=== PATIENT | female | born 1945 | race Caucasian/White ===

== ENCOUNTER 2024-05-30 19:36 | Emergency (ER) | payer MEDICARE, SELFPAY ==
[2024-05-30 19:41] VITALS: BP 169/84; PULSE 86; TEMP 36.6; O2SAT 97; BMI 22.1
--- NOTE | 2024-05-30 20:13 | XR_ITS ---
[address] [address] Patient Name: ANAHY MEDINA MRN: [id number] date: 1945 Sex: F Assigned Patient Location: ED.MAIN Current Patient Location: ER Accession/Order Number: [id number] Exam Date: 05/30/2024 21:20 Report Date: 05/30/2024 22:00 At the request of: OSKAR WALTON Procedure: XR chest 2V Exam: Radiographs: XR chest 2V Reason for exam: shortness of breath Comparison: Chest x-ray dated 07/21/2023 XR/XR chest 2V IMPRESSION: Small bilateral pleural effusions. Interstitial opacities in both lungs compatible with edema. Pulmonary venous hypertension. Sternotomy. Cardiac valve prosthesis. Pacemaker. Remainder the chest is unremarkable. Electronically authenticated by: SANTA SAAVEDRA Date: 05/30/2024 22:00
--- NOTE | 2024-05-30 20:13 | CT_ITS ---
The [address] [address] Patient Name: ANAHY MEDINA MRN: [id number] date: 1945 Sex: F Assigned Patient Location: ED.MAIN Current Patient Location: Accession/Order Number: [id number] Exam Date: 05/30/2024 21:20 Report Date: 05/30/2024 21:58 At the request of: OSKAR WALTON Procedure: CT abdomen pelvis w con EXAM: CT scan of the abdomen and pelvis using 100 mL of IV iodinated contrast. Dose reduction technique used: Automated exposure control and/or adjustment of the mA and/or kV according to patient size and/or use of iterative reconstruction technique. REASON FOR EXAM: abdominal pain COMPARISON: None FINDINGS: Bilateral common and iliac artery stenoses. Infrarenal abdominal aortic ectasia measuring up to 2.6 cm. Small bilateral renal cysts. Colonic diverticulosis. Small bilateral pleural effusions. No evidence of appendicitis. No free fluid in the abdomen or pelvis. No free intraperitoneal air. No dilated or thickened loops of small bowel or colon. No hydronephrosis or obstructing renal or ureteral calculi. Liver, pancreas, spleen, bilateral kidneys, and bilateral adrenal glands are otherwise unremarkable. No lymphadenopathy in the abdomen or pelvis. Remainder unremarkable. CT/CT abdomen pelvis w con IMPRESSION: 1. No acute abnormalities in the abdomen or pelvis. 2. Small bilateral pleural effusions. 3. Bilateral common iliac artery stenoses. Electronically authenticated by: SANTA SAAVEDRA Date: 05/30/2024 21:58
[2024-05-30 20:18] LABS: Basophils Absolute Auto 0.1 10^3/uL (0.0-0.1); Basophils Percent Auto 0.7 % (0.2-2.0); Eosinophils Absolute Auto 0.2 10^3/uL (0.0-0.7); Eosinophils Percent Auto 1.6 % (0.9-7.0); Hemoglobin 11.1 g/dL (12.0-16.0); Immature Granulocytes Abs Auto 0.02 10^3/uL (0.00-0.03); Immature Granulocytes Pct Auto 0.2 % (0.0-0.5); Lymphocytes Absolute Auto 2.2 10^3/uL (1.2-3.8); Lymphocytes Percent Auto 23.4 % (20.5-60.0); Mean Corpuscular HGB Conc 31.7 g/dL (29.9-35.2); Mean Corpuscular Hemoglobin 32.7 pg (26.7-34.0); Mean Corpuscular Volume 103.2 fL (81.0-99.0); Mean Platelet Volume 9.2 fL (9.5-13.5); Monocytes Absolute Auto 0.8 10^3/uL (0.3-0.8); Monocytes Percent Auto 8.9 % (1.7-12.0); Neutrophils Percent Auto 65.2 % (43.0-75.0); Platelet Count 285 10^3/uL (150-450); Red Blood Count 3.39 10^6/uL (4.20-5.40); Red Cell Distribution Width 13.4 % (11.0-15.0); White Blood Count 9.2 10^3/uL (4.0-11.0)
[2024-05-30 20:31] LABS: Bilirubin Urine NEGATIVE (NEGATIVE); Blood Urine NEGATIVE (NEGATIVE); Clarity Urine CLEAR (CLEAR); Color Urine LT. YELLOW (YELLOW); Glucose Urine UA NEGATIVE (NEGATIVE); Ketones Urine TRACE mg/dL (NEGATIVE); Leukocyte Esterase Urine TRACE (NEGATIVE); Nitrite Urine NEGATIVE (NEGATIVE); Protein Urine NEGATIVE (NEG/TRACE); Urine Microscopic Indicated YES; Urobilinogen Urine 0.2 EU/dL (0.2-1.0); pH Urine 5.5 (5.0-9.0)
[2024-05-30 20:35] LABS: Alanine Aminotransferase 33 U/L (14-59); Albumin Globulin Ratio 0.9; Albumin Level 3.5 g/dL (3.4-5.0); Alkaline Phosphatase 60 U/L (46-116); Anion Gap 17.4; Aspartate Amino Transferase 22 U/L (15-37); BUN Creatinine Ratio 18.5; Bilirubin Total 0.4 mg/dL (0.2-1.0); Calcium 9.2 mg/dL (8.5-10.1); Carbon Dioxide 22.7 mmol/L (21.0-32.0); Chloride 107 mmol/L (98-107); Estimated GFR (African America 59 (>=60 mL/min/1.73m^2); Estimated GFR (Non-African Ame 49 (>=60 mL/min/1.73m^2); Globulin 3.8 g/dL; Glucose 121 mg/dL (74-106); Potassium 4.1 mmol/L (3.5-5.1); Sodium 143 mmol/L (136-145); Total Protein 7.3 g/dL (6.4-8.2)
[2024-05-30 20:36] LABS: Lactate/Lactic Acid 1.2 mmol/L (0.4-2.0)
[2024-05-30 20:37] LABS: Troponin I High Sensitivity 19.6 pg/mL (4.0-51.3)
[2024-05-30 20:38] LABS: Bacteria Urine NONE SEEN #/HPF (NONE SEEN); Cast Seen? NONE SEEN #/LPF (NONE SEEN); Crystals Seen? None Seen #/HPF (None Seen); Mucus Urine NONE SEEN (NONE SEEN); RBC Urine 0-2 #/HPF (0-2); Squamous Epithelial Cell Urine RARE #/LPF (NONE/RARE); Urine Culture Indicated NO; WBC Urine 0-2 #/HPF (NONE SEEN)
[2024-05-30] MEDS: FUROSEMIDE 40 MG TABLET PO (22:46)
--- NOTE | 2024-05-30 22:49 | ED_ITS ---
HPI HPI - General Adult General Chief complaint: Abdominal Pain Stated complaint: ABDOMINAL PAIN Time Seen by Provider: 05/30/24 19:54 Source: patient Mode of arrival: walk-in Limitations: no limitations History of Present Illness HPI narrative: 78-year-old female to the emergency department with chief complaint of shortness of breath and abdominal pain. Patient reports that for the last month and a half she is having occasional cramping abdominal pain. It occurs 1 or 2 times a day. No nausea vomiting or diarrhea. No blood in the stool or dark tarry stools. She reports normal daily bowel movements. She has not sought care for this. Patient is also accompanied by daughter who reports for the last few weeks had some increased shortness of breath. She has a history of congestive heart failure. She denies any chest pain. She also reports that she notices it when she is lying flat. She has no new edema in her lower extremities. No fever, sweats, chills, cough. Related Data Home Medications ?Medication ?Instructions ?Recorded ?Confirmed atorvastatin 40 mg tablet mg 05/30/24 calcium citrate 400 mg PO DAILY 05/30/24 05/30/24 docusate sodium 100 mg capsule 100 mg PO DAILY PRN constipation 05/30/24 05/30/24 latanoprost 0.005 % eye drops drp ophthalmic (eye) 05/30/24 levothyroxine 50 mcg tablet mcg 05/30/24 losartan 25 mg tablet mg 05/30/24 meclizine 25 mg tablet 25 mg PO PRN 05/30/24 05/30/24 metoprolol succinate 25 mg mg PO 05/30/24 tablet,extended release 24 hr Previous Rx's ?Medication ?Instructions ?Recorded dicyclomine 10 mg capsule 10 mg PO QID PRN abdominal pain 05/30/24 #12 caps furosemide 20 mg tablet (Lasix) 20 mg PO BID 7 days #14 tabs 05/30/24 lactobacillus combination no.4 3 3,000 mmu cells PO DAILY #30 caps 05/30/24 billion cell capsule (Probiotic) Allergies Allergy/AdvReac Type Severity Reaction Status Date / Time No Known Drug Allergies Allergy Verified 05/30/24 19:49 Opioid HPI Opioid Management Most Recent Opioid Data: No Data to Display Review of Systems ROS Status of ROS 10 or more systems reviewed and unremark able except as noted in history and below PFSH PFSH Social History Little interest or pleasure in doing things: not at all Feeling down, depressed, or hopeless: not at all Exam Narrative Exam Narrative: VITALS: I have reviewed the triage vital signs. GENERAL: Well developed, well appearing adult female in no acute distress. NEURO: Alert and oriented. Moves all extremities. Face is symmetric and expressive. EYES: PERRL. No scleral icterus or conjunctival injection. No discharge. HENT: Normocephalic, atraumatic. Hearing is grossly intact. Nares grossly patent and without discharge. Mucous membranes moist. NECK: No JVD. Patient moves neck without restriction. CARDIO: Rhythm regular. Normal rate. No murmur, rub, or gallop. Pulses equal bilaterally in the upper and lower extremity. No lower extremity edema. PULM: Trace crackles at the bases. No conversational dyspnea. No splinting, stridor, or accessory muscle use. GI/: Abdomen is soft and non-tender. Normoactive bowel sounds. EXTREMITIES: Symmetric muscle bulk. No joint swelling. No clubbing, cyanosis, or deformity. SKIN: Warm and dry. Normal turgor. No rash or lesions appreciated. PSYCH: Mood, affect, and interaction is appropriate to the setting. Constitutional Vital Signs, click to edit/add: Last Vital Signs Temp 97.8 F 05/30/24 19:41 Pulse 86 05/30/24 19:41 Resp 18 05/30/24 19:41 BP 169/84 H 05/30/24 19:41 Pulse Ox 97 05/30/24 19:41 O2 Del Method Room Air 05/30/24 19:41 Course Vital Signs Vital signs: Vital Signs Temperature 97.8 F 05/30/24 19:41 Pulse Rate 86 05/30/24 19:41 Respiratory Rate 18 05/30/24 19:41 Blood Pressure 169/84 H 05/30/24 19:41 Pulse Oximetry 97 05/30/24 19:41 Oxygen Delivery Method Room Air 05/30/24 19:41 Temperature 97.8 F 05/30/24 19:41 Pulse Rate 86 05/30/24 19:41 Respiratory Rate 18 05/30/24 19:41 Blood Pressure 169/84 H 05/30/24 19:41 Pulse Oximetry 97 05/30/24 19:41 Oxygen Delivery Method Room Air 05/30/24 19:41 Medical Decision Making [facility] Narrative Medical decision making narrative: 78-year-old female to the emergency department with chief complaint of abdominal pain and daughter volunteers complaint of shortness of breath. Both of been ongoing for several weeks. Vital stable, the patient is afebrile. She is in no respiratory distress. Cardiac workup with CT scan of the abdomen is ordered. Currently asymptomatic as far as the abdominal pain. Shortness of breath only when lying flat per her report currently. She does follow with a thermal cutter helper. She has a history of congestive heart failure. She has an upcoming echo scheduled this month. Lab work reviewed and noted. CBC and chemistry without major abnormality. Her BNP is significantly elevated. Chest x-ray shows some trace pulmonary edema. No evidence of arrhythmia on telemetry monitoring she remains in a normal sinus rhythm. Patient has strong preference for discharge home and follow-up with her outpatient thermal cutter helper which I believe is reasonable. She will call the office tomorrow to discuss her ED visit. Patient is given a dose of Lasix here. She is started on Lasix 20 mg twice daily for home for the next week. Bentyl and probiotic for her chronic abdominal cramping. Incidental findings on CT scan discussed with patient, vascular surgery referral given. Return precautions were discussed. All questions were answered. The patient was discharged home. Medical Records Medical records reviewed: Yes I reviewed the patient's medical records Lab Data Lab results reviewed: Yes I reviewed the patient's lab results Labs: Lab Results 05/30/24 05/30/24 Range/Units 20:10 20:25 WBC 9.2 (4.0-11.0) 10^3/uL RBC 3.39 L (4.20-5.40) 10^6/uL Hgb 11.1 L (12.0-16.0) g/dL Hct 35.0 L (36.0-48.0) % MCV 103.2 H (81.0-99.0) fL MCH 32.7 (26.7-34.0) pg MCHC 31.7 (29.9-35.2) g/dL RDW 13.4 (11.0-15.0) % Plt Count 285 (150-450) 10^3/uL MPV 9.2 L (9.5-13.5) fL Neut % (Auto) 65.2 (43.0-75.0) % Lymph % (Auto) 23.4 (20.5-60.0) % [place] % (Auto) 8.9 (1.7-12.0) % Eos % (Auto) 1.6 (0.9-7.0) % Baso % (Auto) 0.7 (0.2-2.0) % Neut # (Auto) 6.0 (1.4-6.5) 10^3/uL Lymph # (Auto) 2.2 (1.2-3.8) 10^3/uL [place] # (Auto) 0.8 (0.3-0.8) 10^3/uL Eos # (Auto) 0.2 (0.0-0.7) 10^3/uL Baso # (Auto) 0.1 (0.0-0.1) 10^3/uL Abs Immat Gran (auto) 0.02 (0.00-0.03) 10^3/uL Imm/Tot Granulo (auto) 0.2 (0.0-0.5) % Sodium 143 (136-145) mmol/L Potassium 4.1 (3.5-5.1) mmol/L Chloride 107 (98-107) mmol/L Carbon Dioxide 22.7 (21.0-32.0) mmol/L Anion Gap 17.4 BUN 20.0 H (7.0-18.0) mg/dL Creatinine 1.08 H (0.55-1.02) mg/dL Est GFR ( Amer) 59 L (>=60 mL/min/1.73m^2) Est GFR (Non-Af Amer) 49 L (>=60 mL/min/1.73m^2) BUN/Creatinine Ratio 18.5 Glucose 121 H (74-106) mg/dL Lactate 1.2 (0.4-2.0) mmol/L Calcium 9.2 (8.5-10.1) mg/dL Total Bilirubin 0.4 (0.2-1.0) mg/dL AST 22 (15-37) U/L ALT 33 (14-59) U/L Alkaline Phosphatase 60 (46-116) U/L Troponin I High Sens 19.6 (4.0-51.3) pg/mL NT-Pro-B Natriuret Pep 4139.0 H* (<=1800.0) pg/mL Total Protein 7.3 (6.4-8.2) g/dL Albumin 3.5 (3.4-5.0) g/dL Globulin 3.8 g/dL Albumin/Globulin Ratio 0.9 Lipase 52.0 (16.0-77.0) U/L Urine Color Lt. yellow (YELLOW) Urine Clarity Clear (CLEAR) Urine pH 5.5 (5.0-9.0) Ur Specific [place] 1.020 (1.005-1.025) Urine Protein Negative (NEG/TRACE) mg/dL Urine Glucose (UA) Negative (NEGATIVE) mg/dL Urine Ketones Trace A (NEGATIVE) mg/dL Urine Occult Blood Negative (NEGATIVE) Urine Nitrite Negative (NEGATIVE) Urine Bilirubin Negative (NEGATIVE) Urine Urobilinogen 0.2 (0.2-1.0) EU/dL Ur Leukocyte Esterase Trace A (NEGATIVE) Urine RBC 0-2 (0-2) #/HPF Urine WBC 0-2 A (NONE SEEN) #/HPF Ur Squamous Epith Cells Rare (NONE/RARE) #/LPF Urine Crystals None seen (None Seen) #/HPF Urine Bacteria None seen (NONE SEEN) #/HPF Urine Casts None seen (NONE SEEN) #/LPF Urine Mucus None seen (NONE SEEN) Ur Culture Indicated? No Imaging Data Chest x-ray: Radiologist's impression: ITS Impressions Abdomen/Pelvis CT 05/30/24 20:13 IMPRESSION: 1. No acute abnormalities in the abdomen or pelvis. 2. Small bilateral pleural effusions. 3. Bilateral common iliac artery stenoses. Electronically authenticated by: SANTA SAAVEDRA Date: 05/30/2024 21:58 Chest X-Ray 05/30/24 20:13 IMPRESSION: Small bilateral pleural effusions. Interstitial opacities in both lungs compatible with edema. Pulmonary venous hypertension. Sternotomy. Cardiac valve prosthesis. Pacemaker. Remainder the chest is unremarkable. Electronically authenticated by: SANTA SAAVEDRA Date: 05/30/2024 22:00 Discharge Plan Discharge Chief Complaint: Abdominal Pain Clinical Impression: Acute exacerbation of chronic heart failure, Abdominal cramping Patient Disposition: Home, Self-Care Time of Disposition Decision: 22:22 Condition: Good Mode of Transportation: Private Vehicle Prescriptions / Home Meds: New furosemide [Lasix] 20 mg tablet 20 mg PO BID 7 Days Qty: 14 0RF Probiotic 3 billion cell capsule 3,000 mmu cells PO DAILY Qty: 30 0RF Rx Instructions: administer with a meal dicyclomine 10 mg capsule 10 mg PO QID PRN (Reason: abdominal pain) Qty: 12 0RF No Action latanoprost 0.005 % drops OPHTHALMIC (EYE) atorvastatin 40 mg tablet levothyroxine 50 mcg tablet losartan 25 mg tablet metoprolol succinate 25 mg tablet extended release 24 hr PO docusate sodium 100 mg capsule 100 mg PO DAILY PRN (Reason: constipation) calcium citrate 200 mg (950 mg) tablet 400 mg PO DAILY meclizine 25 mg tablet 25 mg PO PRN Print Language: Sami Instructions: Heart Failure (ED), Abdominal Pain (ED) Additional Instructions: Call the office of your primary care doctor to arrange for follow-up within the above-stated timeframe. Your ED visit was focused on your acute issue and does not replace primary care. You should review your labs, imaging, and diagnoses from this ED visit with your primary care physician. There may be non-emergent/ incidental findings that need further evaluation. You should review your vital signs including blood pressure with your PCP. If you were prescribed medications you should discuss possible side-effects and drug interactions with your pharmacist. Call 911 or go to the nearest Emergency Department if you develop any new or worsening symptoms. Seek immediate medical attention if you develop: worsening shortness of breath, difficulty breathing, chest pain, nausea, vomiting, weakness, numbness, tingling, excessive sweating, loss of motion in your arms or legs, or any new or worsening symptoms. Call the office of your thermal cutter helper to arrange for follow-up within the next week. Take Lasix as prescribed. Follow with your primary care doctor about your abdominal pain. Take probiotic as prescribed. Use Bentyl for severe cramping as needed. Incidental finding of iliac artery stenosis. Follow-up with vascular surgery. Referrals: your thermal cutter helper [Other] - 1 week (Call your thermal cutter helper tomorrow morning. Arrange for follow-up care within the next week.) ELVIA DE LEON [Primary Care Provider] - 1 week Janis Donis MD [Physician] - 1 week (follow up to discuss iliac artery stenosis)
[2024-05-30 22:54] VITALS: BP 143/78; PULSE 82; O2SAT 7
== END 2024-05-30 22:54 | disposition home or self-care (01) ==
PROVIDERS: Emergency Provider Student in an Organized Health Care Education/Training Program; PCP Family Medicine
DX: I50.9 Heart failure, unspecified (principal); R06.02 Shortness of breath; R10.9 Unspecified abdominal pain
CPT/HCPCS: 36415; 71046; 74177; 80053; 81001; 83605; 83690; 83880; 84484; 85025; 99285; Q9967

== ENCOUNTER 2024-07-12 14:54 | Emergency (ER) | payer MEDICARE, SELFPAY ==
[2024-07-12] VITALS (11 sets, daily range): BP systolic 115–157; BP diastolic 67–73; PULSE 70–82; TEMP 36.6; O2SAT 91–98; BMI 22.9
--- OUTSIDE RECORDS SUMMARY | 2024-07-12 15:20 | XMS_ITS | CCD ---
Author Organization [facility] CliniSyid Care Team Providers Care Heavy Equipment Sales Associate Name Role Phone PHYSICIAN, DEFAULT Unavailable Unavailable PHYSICIAN, DEFAULT Unavailable Unavailable SELF, REFERRED Unavailable Unavailable Jayro De Leon Primary Care Provider Jayro De Leon Primary Care Provider [phone] HALEY, DR GAN Admitting Unavailable HEMEYER, DR GAN Attending Unavailable HEMEYER, DR GAN Consulting Unavailable HEMEYER, DR GAN Primary Care Unavailable WEST, DR DEMETRICE Ruano Consulting Unavailable VIGESAA, PAVEL Attending Unavailable VIGESAA, PAVEL Consulting Unavailable VIGESAAPAVEL Admitting Unavailable HEMEYER, DR GAN Primary Care Unavailable VIGESAAPAVEL Attending Unavailable VIGESAA, PAVEL Consulting Unavailable VIGESAAPAVEL Admitting Unavailable REQUEST, NONE LISTED Primary Care Unavaila ble Jayro De Leon MD Primary Care Provider Jayro De Leon MD Primary Care Provider MARIEL KENNEY Attending Unavailable PAVEL BROWN Referring Unavailable JAYRO DE LEON Primary Care Unavailable MARIEL KENNEY Admitting Unavailable Jayro De Leon MD Primary Care Provider [phone] Jayro De Leon MD Primary Care Provider Jayro De Leon MD Primary Care Provider [phone] JAYRO DE LEON Attending Unavailable JAYRO DE LEON Attending Unavailable JAYRO DE LEON Attending Unavailable Jayro De Leon MD Unavailable [phone] Jayro De Leon MD Primary Care Provider Jayro De Leon MD Unavailable [phone] Jayro De Leon MD Primary Care Provider Jayro De Leon MD Unavailable Jayro De Leon MD Primary Care Provider [phone] VIGESAA, PAVEL S Referring Unavailable HEMEBAY, EDPETRA J Primary Care Unavailable VIGESAA, PAVEL S Referring Unavailable VIGESAA, PAVEL S Attending Unavailable HEMEBAY, JAYRO J Primary Care Unavailable VIGESAA, PAVEL S Referring Unavailable VIGESAA, PAVEL S Attending Unavailable HEMEBAY, JAYRO J Primary Care Unavailable VIGESAA, PAVEL S Referring Unavailable VIGESAA, PAVEL S Attending Unavailable HEMEYER, JAYRO J Primary Care Unavailable VIGESAA, PAVEL S Referring Unavailable VIGESAA, PAVEL S Attending Unavailable HEMEBAY, JAYRO J Primary Care Unavailable VIGESAA, PAVEL S Referring Unavailable HEMEBAY, JAYRO Ta Primary Care Unavailable VIGESAA, PAVEL S Referring Unavailable HEMEBAY, JAYRO Ta Primary Care Unavailable HEMEYER, JAYRO Ta Primary Care Unavailable VIGESAA, PAVEL S Referring Unavailable HEMEBAY, JAYRO Ta Primary Care Unavailable VIGESAA, PAVEL S Referring Unavailable HEMEBAY, JAYRO Ta Primary Care Unavailable VIGESAA, PAVEL S Referring Unavailable VIGESAA, PAVEL S Referring Unavailable HEMEBAY, JAYRO Ta Primary Care Unavailable VIGESAA, PAVEL S Referring Unavailable HEMEBAY, JAYRO Ta Primary Care Unavailable VIGESAA, PAVEL S Referring Unavailable HALEY, JAYRO Ta Primary Care Unavailable VIGESPATY TORRES Attending Unavailab le VIGESPATY TORRES Admitting Unavailab le HALEY, JAYRO Ta Primary Care Unavailable Medications Current Medications Medication Drug Class(es) Dates Sig (Normalized) Sig (Original) acetaminophen 500 mg oral tablet (5 sources) acetaminophen (Tylenol) 500 MG tablet Take 2 tablets by mouth if needed for mild pain. Active amoxicillin 500 mg oral capsule (20 sources) Penicillin-class Antibacterial take 2 tablets by mouth once amoxicillin (AMOXIL) 500 MG capsule Take 500 mg by mouth as needed (take 4 tablets prior to procedure and 2 tablets 6 hrs after procedure x 3 days ( per Dr. Bridges)) Active amoxicillin ([place] xil) 500 MG capsule Take 4 capsules by mouth See administration instructions. 4 capsules 1/2 hour prior to procedure and 2 capsules after procedure Active amoxicillin (UBALDO XIL) 500 MG capsule Take 500 mg by mouth as needed . 0 Active aspirin 81 mg delayed release oral tablet (20 sources) Platelet Aggregation Inhibitor, Nonsteroidal Anti-inflammatory Drug Start: 04-12-2023 take 1 tablet by mouth in the morning aspirin 81 MG EC tablet Indications: Coronary artery disease involving autologous vein coronary bypass graft without angina pectoris (CMS/HCC) , History of mitral valve replacement with porcine valve Take 1 tablet (81 mg) by mouth in the morning. 04/12/2023 Active take 1 tablet by mouth once manuel y aspirin 81 MG chewable tablet Take 1 tablet by mouth daily Active atorvastatin 40 mg oral tablet (20 sources) HMG-CoA Reductase Inhibitor Start: 03-17-2018 End: 10-03-2024 take 1 tablet by mouth once daily atorvastatin (LIPITOR) 40 MG tablet Indications: Mitral valve insufficiency, unspecified etiology , NV, old , S/P CABG (coronary artery bypass graft) , H/O mitral valve replacement , Vitamin D deficiency , Fatigue, unspecified type Take 1 tablet by mouth daily 90 tablet 3 03/17/2018 Active Calcium Citrate (20 sources) take 1 tablet by mouth in the morning calcium citrate 1040 MG tablet Take 1 tablet by mouth in the morning. Active CALCIUM CITRATE PO Take by mouth Active CALCIUM CITRATE PO Take by mouth 0 Active calcium citrate 0.415 mg/mg / cholecalciferol 0.1 unt/mg oral powder (13 sources) Vitamin D calcium citrate- vitamin D3 500 mg-12.5 mcg /5 gram Powd Take by mouth . 0 Active carvedilol 3.125 mg oral tablet (4 sources) alpha-Adrenergic Adrian, beta-Adrenergic Adrian take 1 tablet by mouth twice daily at mealtime carvedilol (COREG) 3.125 MG tablet Indications: NV, old , CHF (congestive heart failure) ([facility]) , S/P CABG (coronary artery bypass graft) , ICD (implantable cardiac defibrillator) in place , Mitral valve replaced , Unspecified vitamin D deficiency Take 3.125 mg by mouth 2 times daily (with meals). 0 Active cholecalciferol 0.05 mg oral capsule (20 sources) Vitamin D Cholecalciferol (VITAMIN D) 2000 UNITS CAPS capsule Take by mouth Takes 1000 units in summer, 2000 u in winter Active take 1 capsule by mouth in the m orning cholecalciferol (Vitamin D-3) 250 MCG (36156 UT) capsule Take 1 capsule by mouth in the morning. Active cholecalciferol, vitamin D3, 50 mcg (2,000 unit) cap Take by mouth . 0 Active dicyclomine hydrochloride 10 mg oral capsule (9 sources) Anticholinergic take 1 capsule by mouth four times daily before mealtime dicyclomine (BENTYL) 10 MG capsule Take 1 capsule by mouth 4 times daily (before meals and nightly) Active docusate sodium 100 mg oral capsule (20 sources) take 1 capsule by mouth once daily as needed docusate sodium (COLACE) 100 MG capsule Indications: NV, old , CHF (congestive heart failure) (HCC) , S/P CABG (coronary artery bypass graft) , ICD (implantable cardiac defibrillator) in place , Mitral valve replaced , Unspecified vitamin D deficiency Take 1 capsule by mouth daily as needed Active docusate sodium (Colace) 50 MG capsule Take 1 capsule by mouth if needed for constipation. Active famotidine 20 mg oral tablet (9 sources) Histamine-2 Receptor Antagonist Start: 06-01-2024 take 1 tablet by mouth twice daily famotidine (PEPCID) 20 MG tablet Take 1 tablet by mouth 2 times daily 60 tablet 11 06/01/2024 Active lansoprazole 30 mg delayed release oral capsule (9 sources) Proton Pump Inhibitor Start: 06-01-2024 take 1 capsule by mouth once daily lansoprazole (PREVACID) 30 MG delayed release capsule Take 1 capsule by mouth daily 30 capsule 11 06/01/2024 Active latanoprost 0.05 mg/ml ophthalmic solution (5 sources) Prostaglandin Analog Start: 11-11-2022 take 1 drop(s) into the eye(s) at bedtime latanoprost (Xalatan) 0.005 % ophthalmic solution Administer 1 drop into both eyes at bedtime. 11/11/2022 Active levoFLOXacin 500 mg oral tablet (4 sources) Quinolone Antimicrobial Start: 06-15-2024 End: 06-25-2024 take 1 tablet by mouth once daily levoFLOXacin (LEVAQUIN) 500 MG tablet Take 1 tablet by mouth daily for 10 days 10 tablet 06/15/2024 06/25/2024 Active levothyroxine sodium 0.05 mg oral tablet (20 sources) l-Thyroxine Start: 05-27-2023 End: 04-06-2025 take 1 tablet by mouth before mealtime levothyroxine (Synthroid, Levoxyl) 50 MCG tablet Indications: Acquired hypothyroidism (CMS/HCC) Take 1 tablet (50 mcg) by mouth in the morning. Take before meals. 90 tablet 3 04/06/2024 04/06/2025 Active liothyronine sodium 0.005 mg oral tablet (4 sources) l-Triiodothyronine Start: 12-15-2018 liothyronine (CYTOMEL) 5 MCG tablet losartan potassium 25 mg oral tablet (20 sources) Angiotensin 2 Receptor Adrian Start: 10-09-2023 End: 10-03-2024 take 1 tablet by mouth once daily losartan (Cozaar) 25 MG tablet Indications: Primary hypertension (CMS/HCC) Take 1 tablet (25 mg) by mouth Daily 90 tablet 1 04/06/2024 10/03/2024 Active meclizine hydrochloride 50 mg oral tablet (20 sources) Antiemetic take 0.5 tablet by mouth three times daily as needed meclizine (ANTIVERT) 50 MG tablet Take 0.5 tablets by mouth 3 times daily as needed Active take 1 tablet by doris th three times daily as needed for dizziness meclizine (Antivert) 25 MG tablet Take 2 5 mg by mouth 3 (three) times a day as needed for dizziness Active meclizine (ANTIV ERT) 50 MG tablet Take 25 mg by mouth 3 times daily as needed 0 Active Menaquinone-7 (VITAMIN K2 PO ) (20 sources) Menaquinone-7 (V ITAMIN K2 PO) Take by mouth Active Menaquinone-7 (V ITAMIN K2 PO) Take by mouth 0 Active 24 hr metoprolol succinate 25 mg extended release oral tablet (20 sources) beta-Adrenergic Adrian Start: 10-09-2023 End: 10-03-2024 take 0.5 tablet by mouth once daily metoprolol succinate XL (Toprol-XL) 25 MG 24 hr tablet Indications: Primary hypertension (CMS/HCC) Take 0.5 tablets (12.5 mg) by mouth Daily 45 tablet 1 04/06/2024 10/03/2024 Active Start: 03-09-2019 metoprolol suc cinate (TOPROL XL) 25 MG extended release tablet 0.5 tablets daily 03/09/2019 Active Start: 03-09-2019 metoprolol suc cinate (TOPROL XL) 25 MG extended release tablet 12.5 mg daily 0 03/09/2019 Active Start: 03-09-2019 metoprolol suc cinate (TOPROL-XL) 25 MG 24 hr tablet 12.5 mg daily . 0 03/09/2019 Active Multiple Vitamin (MULTI RADHA MIN DAILY PO) (20 sources) Multiple Vitamin (MULTI VITAMIN DAILY PO) Take by mouth Active Multiple Vitamin (MULTI VITAMIN DAILY PO) Take by mouth 0 Active Multiple Vitamins-Minerals (Multiple Vitamins/Womens) tablet (5 sources) take 1 tablet by mouth once daily Multiple Vitamins-Minerals (Multiple Vitamins/Womens) tablet Take 1 tablet by mouth Daily Active predniSONE 20 mg oral tablet (5 sources) Start: 06-01-2024 End: 06-11-2024 take 2 tablets by mouth once daily predniSONE (DELTASONE) 20 MG tablet Take 2 tablets by mouth daily for 10 days 20 tablet 06/01/2024 06/11/2024 Active 5 ml sodium chloride 9 mg/ml injection (7 sources) Start: 11-01-2021 0.9 % sodium chloride infusion Start: 11-01-2021 sodium chlorid e flush 0.9 % injection 5-40 mL Start: 04-05-2020 End: 04-06-2020 sodium chloride (PF) 0.9 % i njection 10 mL sucralfate 1000 mg oral tablet (9 sources) Aluminum Complex Start: 06-01-2024 take 1 tablet by mouth four times daily sucralfate (CARAFATE) 1 GM tablet Take 1 tablet by mouth 4 times daily 120 tablet 11 06/01/2024 Active vitamin k2 0.1 mg oral capsule (5 sources) take 1 capsule by mouth once daily Menaquinone-7 (Vitamin K2) 100 MCG capsule Take 1 capsule by mouth 1 (one) time each day Active Completed/Discontinued Medications Medication Drug Class(es) Dates Sig (Normalized) Sig (Original) iopamidol (ISOVUE-370) 76 % injection 100 mL (1 source) Start: 06-08-2024 End: 06-08-2024 take 1 dose intravenously once 100 mL, IntraVENous, IMG ONCE PRN, 1 dose, Starting on Fri06/08/24 at 1037, Until Fri06/08/24 at 1207, Other perflutren lipid microspheres (DEFINITY) injection 1.5 mL (1 source) Start: 06-08-2024 End: 06-08-2024 take 1.1 mg intravenously once as needed 1.5 mL, IntraVENous, IMG ONCE PRN, 1 dose, Starting on Fri06/08/24 at 1118, Until Fri06/08/24 at 1119, Other, Once activated, final concentration equals 1.1 mg/mL regadenoson (LEXISCAN) injection 0.4 mg (1 source) Start: 04-05-2020 End: 04-05-2020 regadenoson (LEXISCAN) injection 0.4 mg technetium sestamibi (CARDIOLITE) injection 10 millicurie (1 source) Start: 04-05-2020 End: 04-05-2020 technetium sestamibi (CARDIOLITE) injection 10 millicurie technetium sestamibi (CARDIOLITE) injection 30 millicurie (1 source) Start: 04-05-2020 End: 04-05-2020 technetium sestamibi (CARDIOLITE) injection 30 millicurie Problems Active Problems Problem Classification Problem Date Documented Date Episodic/Chronic Aortic; peripheral; and visceral artery aneurysms (3 sources) Aneurysm; Translations: [Aneurysm of unspecified site] Onset: 06-08-2024 06-08-2024 Chronic Cardiac dysrhythmias (5 sources) Sick sinus syndrome; Translations: [Sick sinus syndrome] Onset: 11-15-2022 11-15-2022 Chronic Chronic kidney disease (7 sources) Chronic kidney disease stage 3A ; Translations: [Stage 3a chronic kidney disease (HCC)] Onset: 11-15-2022 11-15-2022 Chronic Chronic obstructive pulmonary disease and bronchiectasis (5 sources) Simple chronic bronchitis; Translations: [Simple chronic bronchitis] Onset: 11-15-2022 11-15-2022 Chronic Complication of device; implant or graft (5 sources) Arteriosclerosis of autologous vein coronary artery bypass graft; Translations: [Atherosclerosis of coronary artery bypass graft(s) without angina pectoris] Onset: 11-15-2022 11-25-2023 Chronic Conduction disorders (20 sources) Automatic implantable cardiac defibrillator in situ; Translations: [Cardiac pacemaker in situ] Onset: 03-16-2019 Resolved: 04-12-2023 03-06-2015 Chronic Congestive heart failure; nonhypertensive (20 sources) Congestive heart failure; Translations: [Heart failure, unspecified] Onset: 05-11-2012 05-11-2012 Chronic Coronary atherosclerosis and other heart disease (20 sources) Old myocardial infarction; Translations: [Coronary arteriosclerosis] Onset: 05-11-2012 05-11-2012 Chronic Coronary atherosclerosis and other heart disease (14 sources) History of coronary artery bypass grafting; Translations: [S/P CABG (coronary artery bypass graft)] 06-24-2012 Episodic Disorders of lipid metabolism (7 sources) Dyslipidemia; Translations: [Mixed hyperlipidemia] Onset: 11-15-2022 11-15-2022 Chronic Essential hypertension (20 sources) Essential hypertension; Translations: [Essential (primary) hypertension] Onset: 09-05-2020 Chronic Heart valve disorders (20 sources) Mitral valve regurgitation; Translations: [History of mitral valve replacement] Onset: 05-11-2012 Resolved: 11-25-2023 05-11-2012 Chronic Hypertension with complications and secondary hypertension (12 sources) Hypertensive renal disease; Translations: [Hypertensive chronic kidney disease with stage 1 through stage 4 chronic kidney disease, or unspecified chronic kidney disease] Onset: 06-05-2017 Resolved: 04-03-2023 11-25-2023 Chronic Malaise and fatigue (5 sources) Fatigue; Translations: [Chronic fatigue, unspecified] Onset: 11-15-2022 11-15-2022 Chronic Malaise and fatigue (4 sources) Fatigue; Translations: [Fatigue, unspecified type] Episodic Nonspecific chest pain (5 sources) Chest pain; Translations: [Chest pain, unspecified] Onset: 06-15-2024 06-08-2024 Episodic Nutritional deficiencies (20 sources) Vitamin D deficiency; Translations: [Vitamin D deficiency, unspecified] Onset: 03-17-2018 03-17-2018 Chronic Other and ill-defined heart disease (5 sources) Left atrial enlargement; Translations: [Cardiomegaly] Onset: 11-15-2022 11-15-2022 Chronic Other and ill-defined heart disease (5 sources) Left ventricular hypertrophy; Translations: [Cardiomegaly] Onset: 11-15-2022 11-15-2022 Chronic Other circulatory disease (1 source) Carotid bruit; Translations: [Other specified symptoms and signs involving the circulatory and respiratory systems] 06-08-2024 Episodic Other circulatory disease (1 source) Other specified symptoms and signs involving the circulatory and respiratory systems; Translations: [Other specified symptoms and signs involving the circulatory and respiratory systems] Onset: 06-08-2024 Episodic Other lower respiratory disease (2 sources) Shortness of breath; Translations: [SHORTNESS OF BREATH] Onset: 09-05-2020 Episodic Other lower respiratory disease (5 sources) Dyspnea; Translations: [Shortness of breath] 06-01-2024 Episodic Other lower respiratory disease (2 sources) Cough; Translations: [Acute cough] 06-15-2024 Episodic Other screening for suspected conditions (not mental disorders or infectious disease) (4 sources) Encounter for screening mammogram for malignant neoplasm of breast; Translations: [ENC SCR MAMMO MALIG NEOPLASM BREAST] Onset: 02-09-2021 Episodic Clarice-; endo-; and myocarditis; cardiomyopathy (except that caused by tuberculosis or sexually transmitted disease) (20 sources) Cardiomyopathy; Translations: [Cardiomyopathy, unspecified] Onset: 03-14-2020 Resolved: 11-25-2023 03-14-2020 Chronic Pulmonary heart disease (5 sources) Pulmonary hypertension; Translations: [Pulmonary hypertension, unspecified] Onset: 11-15-2022 11-15-2022 Chronic Thyroid disorders (7 sources) Acquired hypothyroidism; Translations: [Hypothyroidism, unspecified] Onset: 11-15-2022 11-15-2022 Chronic Unclassified (2 sources) Acute cough; Translations: [Acute cough] Onset: 06-15-2024 Past or Other Problems Problem Classification Problem Date Documented Da te Episodic/Chronic Complication of device; implant or graft (9 sources) Stenosis of other cardiac prosthetic devices, implants and grafts, sequela; Translations: [Late effect of complications of surgical and medical care] Onset: 11-15-2022 Episodic Conditions associated with dizziness or vertigo (5 sources) Vertigo; Translations: [Dizziness and giddiness] Onset: 04-12-2023 04-12-2023 Episodic Genitourinary symptoms and ill-defined conditions (7 sources) Microalbuminuria; Translations: [Proteinuria, unspecified] Onset: 11-15-2022 11-15-2022 Episodic Mood disorders (5 sources) Mood disorders Onset: 11-25-2023 11-25-2023 Other bone disease and musculoskeletal deformities (5 sources) Osteopenia; Translations: [Other specified disorders of bone density and structure, unspecified site] Onset: 11-15-2022 11-15-2022 Episodic Other circulatory disease (20 sources) H/O: heart failure; Translations: [Personal history of other diseases of the circulatory system] Onset: 02-27-2016 02-27-2016 Episodic Other nutritional; endocrine; and metabolic disorders (5 sources) Overweight in adulthood with body mass index of 25 or more but less than 30; Translations: [Body mass index (BMI) 25.0-25.9, adult] Onset: 11-15-2022 11-15-2022 Episodic Screening and history of mental health and substance abuse codes (7 sources) Ex-cigarette smoker; Translations: [Personal history of nicotine dependence] Onset: 11-15-2022 11-15-2022 Episodic Thyroid disorders (5 sources) Sick-euthyroid syndrome; Translations: [Sick-euthyroid syndrome] Onset: 11-15-2022 11-15-2022 Episodic Unclassified (1 source) Acute cough; Translations: [Acute cough] Onset: 06-15-2024 Results Test Name Value Interpretation Reference Range Facility H AND Naeem 07-02-2024 H AND P Jayro De Leon MD [address] [place] [address] RE: LUCIANA MEDINA : [address] De Leon: CHIEF COMPLAINT: Shortness of breath and loss of energy. A #25 bioprosthetic Hernandez porcine mitral valve placed on June 12, 2012. Sick sinus syndrome, status post Medtronic pacemaker implanted on June 15, 2022. POOL and cardiac catheterization showing severe mitral stenosis with a cardiac CTA at [facility] in [place] showing no significant bioprosthetic mitral valve stenosis. Recent hospitalization for abdominal pain and shortness of breath, which showed a small pleural effusion with continued pain in her abdomen and a negative CT scan. HISTORY OF PRESENT ILLNESS: I had the pleasure of seeing Luciana and her daughter, Zofia, in our office on June 01, 2024. She is a very pleasant complex 78-year-old female who developed shortness of breath and chest pain on April 15, 2012, went to the emergency room and had bilateral pleural effusions, transferred to [facility] with an EF of 45% with inferior wall hypokinesis. She has severe mitral regurgitation. She was discharged. I was asked to see her on May 12, 2012. 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 Her EF was 50%. She had 99% disease in the right coronary artery and 30% to 40% LAD and mild circumflex disease. She had open-heart surgery by Dr. Demetrice Zhou on June 12, 2012, with a vein graft to the right coronary and a #25 Hernandez porcine bioprosthetic valve in the mitral position. 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 Her pacemaker is nearing end of life with approximately 2 months left on battery. I have been doing yearly echocardiograms. An echocardiogram on October 03, 2021, showed an EF of 50% to 55% with bioprosthetic mitral valve stenosis with a peak gradient of 26 and a mean gradient of 12 mmHg. She had a POOL in [place] by Dr. Kenney that showed severe bioprosthetic mitral valve stenosis. I did a left and right cardiac catheterization on January 18, 2022. This showed mild plaque disease in the LAD, ramus, and circumflex. The right coronary artery was large and dominant and was occluded in midportion which filled from a widely patent vein graft to the PDA. The PA pressure was 54/24 and the mitral valve area was estimated at 1.[address] Lucio on January 18, 2022, and he felt that she would benefit from mitral valve replacement. However, CTA protocol was ordered and a CCTA. It did show mild thickening of bioprosthetic valve with no significant stenosis. Echocardiogram was repeated at [facility] on February 04, 2022. The mitral valve area was estimated at 1.3 cm2 and no replacement was done. I did another echocardiogram on June 12, 2023, at [facility] that showed EF of 51% with a peak gradient of 20 and a mean gradient of 8 with an estimated mitral valve area of 1.1 cm2. Report stated there was no change from previous echocardiogram. She has developed more shortness of breath over the last several months. She then developed abdominal pain and worsening shortness of breath approximately 2 weeks ago. Her shortness of breath had been present for approximately 2 months. Her abdominal pain and epigastric pain was worse with deep inspirations. It was also tender to the touch. She went to the emergency room and did have a CT scan of the abdomen and pelvis at [facility] on May 30, 2024. I do not have the entire scan, but the impression was no acute abnormalities of abdomen or pelvis with small bilateral pleural effusions. She had bilateral common iliac stenosis. She was placed on Lasix 20 mg b.i.d. for 7 days and also placed on probiotics. I am seeing her today in followup. She continues to have abdominal pain, slightly worse with deep inspiration. She has had no nausea or vomiting. No change in bowel habits. She did have marked tenderness in the epigastric region with palpation. She also had some tenderness in the mid epigastric region in the right upper quadrant. She denies any syncope or near syncope. She does continue to have shortness of breath, possibly slightly better. She has had no PND or orthopnea, either before hospitalization or after hospitalization. She is scheduled to have another echocardiogram in June 2024 at [facility] in [place]. CARDIAC RISK FACTORS: Known CAD: Positive. Bypass surgery: Positive. Hypertension: Positive. Other family members: Positive. Smoking: Negative. Diabetes: Negative. Peripheral vascular disease: Negative. Hyperlipidemia: Positive. MEDICATIONS: At this time: She is on Lasix 20 mg b.i.d., aspirin 81 mg daily, Lipitor 40 mg daily, vitamin D 2000 units daily, Bentyl 10 mg q.i.d. (place (more content not included)... Normal [facility] LEFT AND RIGHT HEART CATHon 07-02-2024 LEFT AND RIGHT HEART CATH This is a summary report. The complete report is available in the patient's medical record. If you cannot access the medical record, please contact the sending organization for a detailed fax or copy. Impression: LMT: ok LAD: 40% Ramus: OK Cx: ok RCA: 100% SVG to PDA: 55% RA 11 RV 64/8 PA 71/33 m=47 PAWP 22 V=37 LV 111/9 Ao 111/51 CO 3.17 MV grad 11 mmHg MV area 0.79 cm2 Recommendations: Will refer to [facility] for bioprosthetic MV stenosis. (Her preference) Coronary Findings Diagnostic Dominance: Right Left Main: The vessel is angiographically normal. Left Anterior Descending: The vessel is large. The vessel exhibits minimal luminal irregularities. LAD is large vessel. 40% lesion in mid-portion. Mid LAD lesion is 40% stenosed. Ramus Intermedius: The vessel is large. The vessel exhibits minimal luminal irregularities. Left Circumflex: The vessel is moderate in size. The vessel exhibits minimal luminal irregularities. Right Coronary Artery: The vessel is large. The RCA is large and dominant. It is occluded in mid portion. The PDA and PVB fill from a widely patent SVG to PDA Mid RCA lesion is 100% stenosed. Vein Graft To RPDA: The graft is large. The graft is angiographically normal. Prox Graft lesion is 55% stenosed. Intervention No interventions have been documented. Left Ventricle Ejection Fraction: 55%%. Right Heart Catheterization RA 11 RV 64/8 PA 71/33 m=47 PAWP m=22 A=22 V=37 LV 107/9 Ao 111/51 m=75 CO 3.17 MV area = 0.79 cm2. [facility] POC OXYHEMOGLOBIN AVOXon COLLECTION SITE - AVOX Pulmonary artery [facility] Comment on above: Performed By: #### P [id number] #### LAB [address] [address] Silvestre Torres M.D. [id number] O2HB AVOX 62.2 % [facility] Comment on above: Result Comment: EXPE CTED VALUES %HBO2 Right atrium RA 70 - 75% Aorta AO 95 - 97% Left atrium LA 95 - 98% Pulmonary artery PA 70 - 75% Right ventricle RV 70 - 75% Left ventricle LV 95 - 98% Performed By: #### P [id number] #### LAB [address] [address] Silvestre Torres M.D. [id number] SUBSITE - AVOX Right [facility] Comment on above: Performed By: #### P [id number] #### [facility] LAB [address], [place] [address] Silvestre Torres M.D. [id number] COLLECTION SITE - AVOX Aorta [facility] Comment on above: Performed By: #### P [id number] #### [facility] LAB [address] [address] Silvestre Torres M.D. [id number] O2HB AVOX 93.7 % [facility] Comment on above: Result Comment: EXPE CTED VALUES %HBO2 Right atrium RA 70 - 75% Aorta AO 95 - 97% Left atrium LA 95 - 98% Pulmonary artery PA 70 - 75% Right ventricle RV 70 - 75% Left ventricle LV 95 - 98% Performed By: #### P [id number] #### [facility] LAB [address], [place] [address] Silvestre Torres M.D. [id number] SUBSITE - AVOX [facility] Comment on above: Performed By: #### P [id number] #### [facility] LAB [address], [place] [address] Silvestre Torres M.D. [id number] XR CHEST (2 VW)on 06-16-2024 XR CHEST (2 VW) EXAM: XR CHEST (2 VW) HISTORY: Acute cough COMPARISON: 05/30/2024, Nellie IMPRESSION: FINDINGS/IMPRESSION : 1. The pulmonary veins are not as prominent. 2. No focal pulmonary edema. 3. Prior sternotomy, valve prosthesis and dual-lead pacemaker unchanged. 4. No effusion or pneumonia. Interpreted by: Kenrick Mix Jr., MD Signed by: Kenrick Mix Jr., MD 06/16/24 Final result Normal [facility] XR Chest 2 Viewson FINDINGS/IMPRESSION : 1. The pulmonary veins are not as prominent. 2. No focal pulmonary edema. 3. Prior sternotomy, valve prosthesis and dual-lead pacemaker unchanged. 4. No effusion or pneumonia. [facility] RIS CONSOLIDATED EXAM: XR CHEST (2 VW) HISTORY: Acute cough COMPARISON: 05/30/2024, Nellie MHPN RIS CONSOLIDATED Kenrick Mix Jr., MD - 06/16/2024 EXAM: XR CHEST (2 VW) HISTORY: Acute cough COMPARISON: 05/30/2024, Nellie IMPRESSION: FINDINGS/IMPRESSION : 1. The pulmonary veins are not as prominent. 2. No focal pulmonary edema. 3. Prior sternotomy, valve prosthesis and dual-lead pacemaker unchanged. 4. No effusion or pneumonia. [facility] XR Chest 2 ViewsOrdered By: Kenrick Mix on 06-16-2024 [facility] Work Phone: ALL MAGNESIUMon 06-15-2024 Magnesium [Mass/Vol] 1.9 mg/dL 1.6 - 2 .6 mg/dL [facility] CBC with Auto Differentialon 06-15-2024 Basophils (Bld) [#/Vol] 0.04 10*3/uL [facility] Basophils/100 WBC (Bld) 0 % 0 - 2 % [facility] Eosinophils (Bld) [#/Vol] 0.11 10*3/uL [facility] Eosinophils/100 WBC (Bld) 1 % 0 - 5 % [facility] Erythrocyte distribution width (RBC) [Ratio] 14.0 % 12.1 - 15.2 % [facility] Hematocrit (Bld) [Volume fraction] 34.6 % Low 36.0 - 46.0 % [facility] Hemoglobin (Bld) [Mass/Vol] 11.0 g/dL Low 12.0 - 16.0 g/dL [facility] Immature granulocytes (Bld) [#/Vol] 0.02 10*3/uL [facility] Immature granulocytes/100 WBC (Bld) 0 % 0 - 5 % [facility] Interpretation and review of laboratory results Abnormal [facility] Lymphocytes/100 WBC (Bld) 14 % Low 15 - 40 % [facility] Lymphocytes/100 WBC (Bld) 1.62 % [facility] MCH (RBC) [Entitic mass] 32.4 pg 26.0 - 34.0 pg [facility] MCHC (RBC) [Mass/Vol] 31.8 g/dL 31.0 - 37.0 g/dL [facility] MCV (RBC) [Entitic vol] 101.8 fL High 80.0 - 100.0 fL [facility] Monocytes/100 WBC (Bld) 8 % 4 - 8 % [facility] Monocytes/100 WBC (Bld) 0.94 % [facility] Neutrophils/100 WBC (Bld) 77 % High 47 - 75 % [facility] Platelet mean volume (Bld) [Entitic vol] 8.6 fL 6.0 - 12.0 fL [facility] Platelets (Bld) [#/Vol] 235 10*3/uL [facility] RBC (Bld) [#/Vol] 3.40 10*6/uL Low 4.00 - 5.2 0 m/uL [facility] Segmented neutrophils/100 WBC (Bld) 9.05 % High [facility] WBC other (Bld) [#/Vol] 11.8 High [facility] CBC with Diffon 06-15-2024 Abs. Basophil 0.04 k/uL Normal 0.00-0.20 [facility] Comment on above: Performed By: #### Luis Antonio FAST, CP, TSHX, CDP, MG #### [facility] Lab [address] [place] [address] Plaster Foreman: Demetrice Han MD #### LIPR #### [place] [id number] Plaster Foreman: Jorge Luis Escamilla MD Abs.Imm.Granulocyte 0.02 k/uL Normal 0.00-0.30 [facility] Comment on above: Performed By: #### Luis Antonio FAST, CP, TSHX, CDP, MG #### [facility] Lab [address] [place] [address] Plaster Foreman: Demetrice Han MD #### LIPR #### [place] [id number] Plaster Foreman: Jorge Luis Escamilla MD Abs.Neutrophil (Seg) 9.05 k/uL High 2.5-7.0 [facility] Comment on above: Performed By: #### Luis Antonio FAST, CP, TSHX, CDP, MG #### [facility] Lab [address] [place] [address] Plaster Foreman: Demetrice Han MD #### LIPR #### [place] [phone] Plaster Foreman: Jorge Luis Escamilla MD Basophils/100 WBC (Bld) 0 % Normal 0-2 [facility] Comment on above: Performed By: #### Z FAST, CP, TSHX, CDP, MG #### [facility] Lab [address] [place], [place] [id number] Plaster Foreman: Demetrice Han MD #### LIPR #### [address] [phone] Plaster Foreman: Jorge Luis Escamilla MD Eosinophils (Bld) [#/Vol] 0.11 10*3/uL Normal 0.00-0.40 [facility] Comment on above: Performed By: #### Luis Antonio FAST, CP, TSHX, CDP, MG #### [facility] Lab [address] [place], [place] [phone] Plaster Foreman: Demetrice Han MD #### LIPR #### [address] [phone] Plaster Foreman: Jorge Luis Escamilla MD Eosinophils/100 WBC (Bld) 1 % Normal 0-5 [facility] Comment on above: Performed By: #### Luis Antonio FAST, CP, TSHX, CDP, MG #### [facility] Lab [address] [place], [place] [id number] Plaster Foreman: Demetrice Han MD #### LIPR #### [address] [phone] Plaster Foreman: Jorge Luis Escamilla MD Erythrocyte distribution width (RBC) [Ratio] 14.0 % Normal 12.1-15.2 [facility] Comment on above: Performed By: #### Z FAST, CP, TSHX, CDP, MG #### [facility] Lab [address] [place], [place] [id number] Plaster Foreman: Demetrice Han MD #### LIPR #### [address] [phone] Plaster Foreman: Jorge Luis Escamilla MD Hematocrit (Bld) [Volume fraction] 34.6 % Low 36.0-46.0 [facility] Comment on above: Performed By: #### Z FAST, CP, TSHX, CDP, MG #### [facility] Lab [address] [phone] Plaster Foreman: Demetrice Han MD #### LIPR #### [place] [phone] Plaster Foreman: Jorge Luis Escamilla MD Hemoglobin (Bld) [Mass/Vol] 11.0 g/dL Low 12.0-16.0 [facility] Comment on above: Performed By: #### Z FAST, CP, TSHX, CDP, MG #### [facility] Lab [address] [phone] Plaster Foreman: Demetrice Han MD #### LIPR #### [place] [phone] Plaster Foreman: Jorge Luis Escamilla MD Immature granulocytes/100 WBC (Bld) 0 % Normal 0-5 [facility] Comment on above: Performed By: #### Z FAST, CP, TSHX, CDP, MG #### [facility] Lab [address] [phone] Plaster Foreman: Demetrice Han MD #### LIPR #### [place] [address] Plaster Foreman: Jorge Luis Escamilla MD Lymphocytes (Bld) [#/Vol] 1.62 10*3/uL Normal 1.00-4.80 [facility] Comment on above: Performed By: #### Z FAST, CP, TSHX, CDP, MG #### [facility] Lab [address] [phone] Plaster Foreman: Demetrice Han MD #### LIPR #### [address] [phone] Plaster Foreman: Jorge Luis Escamilla MD Lymphocytes/100 WBC (Bld) 14 % Low 15-40 [facility] Comment on above: Performed By: #### Z FAST, CP, TSHX, CDP, MG #### [facility] Lab [address] [place], [place] [phone] Plaster Foreman: Demetrice Han MD #### LIPR #### [address] [phone] Plaster Foreman: Jorge Luis Escamilla MD MCH (RBC) [Entitic mass] 32.4 pg Normal 26.0-34.0 [facility] Comment on above: Performed By: #### Z FAST, CP, TSHX, CDP, MG #### [facility] Lab [address] [phone] ( Plaster Foreman: Demetrice Han MD #### LIPR #### [address] [phone] Plaster Foreman: Jorge Luis Escamilla MD MCHC (RBC) [Mass/Vol] 31.8 g/dL Normal 31.0-37.0 [facility] Comment on above: Performed By: #### Z FAST, CP, TSHX, CDP, MG #### [facility] Lab [address] [phone] Plaster Foreman: Demetrice Han MD #### LIPR #### [address] [id number] Plaster Foreman: Jorge Luis Escamilla MD MCV (RBC) [Entitic vol] 101.8 fL High 80.0-100.0 [facility] Comment on above: Performed By: #### Z FAST, CP, TSHX, CDP, MG #### [facility] Lab [address] [phone] Plaster Foreman: Demetrice Han MD #### LIPR #### [address] [phone] Plaster Foreman: Jorge Luis Escamilla MD Monocytes (Bld) [#/Vol] 0.94 10*3/uL Normal 0.00-1.00 [facility] Comment on above: Performed By: #### Z FAST, CP, TSHX, CDP, MG #### [facility] Lab [address] [phone] ( Plaster Foreman: Demetrice Han MD #### LIPR #### [place] [phone] Plaster Foreman: Jorge Luis Escamilla MD Monocytes/100 WBC (Bld) 8 % Normal 4-8 [facility] Comment on above: Performed By: #### Z FAST, CP, TSHX, CDP, MG #### [facility] Lab [address] [phone] ( Plaster Foreman: Demetrice Han MD #### LIPR #### [place] [phone] Plaster Foreman: Jorge Luis Escamilla MD Neutrophil (Seg) 77 % High 47-75 [facility] Comment on above: Performed By: #### Z FAST, CP, TSHX, CDP, MG #### [facility] Lab [address] [phone] ( Plaster Foreman: Demetrice Han MD #### LIPR #### [place] [phone] Plaster Foreman: Jorge Luis Escamilla MD Platelet mean volume (Bld) [Entitic vol] 8.6 fL Normal 6.0-12.0 [facility] Comment on above: Performed By: #### Z FAST, CP, TSHX, CDP, MG #### [facility] Lab [address] [phone] ( Plaster Foreman: Demetrice Han MD #### LIPR #### [address] [phone] Plaster Foreman: Jorge Luis Escamilla MD Platelets (Bld) [#/Vol] 235 10*3/uL Normal 140-450 [facility] Comment on above: Performed By: #### Z FAST, CP, TSHX, CDP, MG #### [facility] Lab [address] [place], [place] [phone] Plaster Foreman: Demetrice Han MD #### LIPR #### [address] [phone] Plaster Foreman: Jorge Luis Escamilla MD RBC (Bld) [#/Vol] 3.40 10*6/uL Low 4.00-5.20 [facility] Comment on above: Performed By: #### Z FAST, CP, TSHX, CDP, MG #### [facility] Lab [address] [place], [place] [phone] Plaster Foreman: Demetrice Han MD #### LIPR #### [address] [phone] Plaster Foreman: Jorge Luis Escamilla MD WBC (Bld) [#/Vol] 11.8 10*3/uL High 3.5-11.0 [facility] Comment on above: Performed By: #### Z FAST, CP, TSHX, CDP, MG #### [facility] Lab [address] [place] [address] Plaster Foreman: Demetrice Han MD #### LIPR #### [address] [phone] Plaster Foreman: Jorge Luis Escamilla MD Comp Metabolic Profon 2023 Albumin [Mass/Vol] 3.8 g/dL Normal 3.5-5.2 [facility] Comment on above: Performed By: #### Z FAST, CP, TSHX, CDP, MG #### [facility] Lab [address] [place], [place] [phone] Plaster Foreman: Demetrice Han MD #### LIPR #### [address] [phone] Plaster Foreman: Jorge Luis Escamilla MD Alkaline Phos 52 U/L Normal 35-104 [facility] Comment on above: Performed By: #### Z FAST, CP, TSHX, CDP, MG #### [facility] Lab [address] [place], [place] [phone] Plaster Foreman: Demetrice Han MD #### LIPR #### [address] [phone] Plaster Foreman: Jorge Luis Escamilla MD ALT [Catalytic activity/Vol] 17 U/L Normal 5-33 [facility] Comment on above: Performed By: #### Z FAST, CP, TSHX, CDP, MG #### [facility] Lab [address] [place], [place] [phone] Plaster Foreman: Demetrice Han MD #### LIPR #### [address] [phone] Plaster Foreman: Jorge Luis Escamilla MD Anion gap [Moles/Vol] 12 mmol/L Normal 9-17 [facility] Comment on above: Performed By: #### Z FAST, CP, TSHX, CDP, MG #### [facility] Lab [address] [place], [place] [id number] Plaster Foreman: Demetrice Han MD #### LIPR #### [address] [id number] Plaster Foreman: Jorge Luis Escamilla MD AST [Catalytic activity/Vol] 18 U/L Normal <32 [facility] Comment on above: Performed By: #### Z FAST, CP, TSHX, CDP, MG #### [facility] Lab [address] [place], [place] [phone] Plaster Foreman: Demetrice Han MD #### LIPR #### [facility] [address] [place], [place] [phone] Plaster Foreman: Jorge Luis Escamilla MD Bilirubin [Mass/Vol] 0.4 mg/dL Normal 0.3-1.2 [facility] Comment on above: Performed By: #### Z FAST, CP, TSHX, CDP, MG #### [facility] Lab [address] [place] [address] Plaster Foreman: Demetrice Han MD #### LIPR #### [id number] [place], [place] [phone] Plaster Foreman: Jorge Luis Escamilla MD BUN/CRE Ratio 20 Normal 9-20 [facility] Comment on above: Performed By: #### Z FAST, CP, TSHX, CDP, MG #### [facility] Lab [address] [place] [address] Plaster Foreman: Demetrice Han MD #### LIPR #### [address] [phone] Plaster Foreman: Jorge Luis Escamilla MD Calcium [Mass/Vol] 9.1 mg/dL Normal 8.6-10.4 [facility] Comment on above: Performed By: #### Z FAST, CP, TSHX, CDP, MG #### [facility] Lab [address] [place] [address] Plaster Foreman: Demetrice Han MD #### LIPR #### [address] [phone] Plaster Foreman: Jorge Luis Escamilla MD Chloride [Moles/Vol] 102 mmol/L Normal 98-107 [facility] Comment on above: Performed By: #### Z FAST, CP, TSHX, CDP, MG #### [facility] Lab [address] [place] [address] Plaster Foreman: Demetrice Han MD #### LIPR #### [facility] [address] [place] [address] Plaster Foreman: Jorge Luis Escamilla MD CO2 [Moles/Vol] 27 mmol/L Normal 20-31 [facility] Comment on above: Performed By: #### Z FAST, CP, TSHX, CDP, MG #### [facility] Lab [address] [place] [address] Plaster Foreman: Demetrice Han MD #### LIPR #### [address] [id number] Plaster Foreman: Jorge Luis Escamilla MD Creatinine [Mass/Vol] 0.8 mg/dL Normal 0.5-0.9 [facility] Comment on above: Performed By: #### Z FAST, CP, TSHX, CDP, MG #### [facility] Lab [address] [place] [address] Plaster Foreman: Demetrice Han MD #### LIPR #### [facility] [address] [place] [address] Plaster Foreman: Jorge Luis Escamilla MD GFR/1.73 sq M.predicted among non-blacks MDRD (S/P/Bld) [Vol rate/Area] 74 mL/min/{1.73_m2} Normal >60 [facility] Comment on above: Result Comment: These results are not intended for use in patients <18 years of age. eGFR results are calculated without a race factor using the 2020 CKD-EPI equation. Careful clinical correlation is recommended, particularly when comparing to results calculated using previous equations. The CKD-EPI equation is less accurate in patients with extremes of muscle mass, extra-renal metabolism of creatine, excessive creatine ingestion, or following therapy that affects renal tubular secretion. Performed By: #### Z FAST, CP, TSHX, CDP, MG #### [facility] Lab [address] [place], [place] [phone] Plaster Foreman: Demetrice Han MD #### LIPR #### [address] [phone] Plaster Foreman: Jorge Luis Escamilla MD Glucose [Mass/Vol] 108 mg/dL High 70-99 [facility] Comment on above: Performed By: #### Z FAST, CP, TSHX, CDP, MG #### [facility] Lab [address] [place], [place] [phone] Plaster Foreman: Demetrice Han MD #### LIPR #### [address] [phone] Plaster Foreman: Jorge Luis Escamilla MD Potassium [Moles/Vol] 3.5 mmol/L Low 3.7-5.3 [facility] Comment on above: Performed By: #### Luis Antonio FAST, CP, TSHX, CDP, MG #### [facility] Lab [address] [place] [address] Plaster Foreman: Demetrice Han MD #### LIPR #### [address] [phone] Plaster Foreman: Jorge Luis Escamilla MD Protein [Mass/Vol] 6.7 g/dL Normal 6.4-8.3 [facility] Comment on above: Performed By: #### Luis Antonio FAST, CP, TSHX, CDP, MG #### [facility] Lab [address] [place] [address] Plaster Foreman: Demetrice Han MD #### LIPR #### [address] [phone] Plaster Foreman: Jorge Luis Escamilla MD Sodium [Moles/Vol] 141 mmol/L Normal 135-144 [facility] Comment on above: Performed By: #### Z FAST, CP, TSHX, CDP, MG #### [facility] Lab [address] [place] [address] Plaster Foreman: Demetrice Han MD #### LIPR #### [facility] [address] [place] [address] Plaster Foreman: Jorge Luis Escamilla MD Urea nitrogen [Mass/Vol] 16 mg/dL Normal 8-23 [facility] Comment on above: Performed By: #### Z FAST, CP, TSHX, CDP, MG #### [facility] Lab [address] [place], [place] [address] Plaster Foreman: Demetrice Han MD #### LIPR #### [facility] [employer] [address] [place] [address] Plaster Foreman: Jorge Luis Escamilla MD [facility] Metabolic Pane [facility] 06-15-2024 Albumin [Mass/Vol] 3.8 g/dL 3.5 - 5.2 g/dL [facility] ALP [Catalytic activity/Vol] 52 U/L 35 - 104 U/L [facility] ALT [Catalytic activity/Vol] 17 U/L 5 - 33 U/L [facility] Anion gap [Moles/Vol] 12 mmol/L 9 - 17 mmol/L [facility] AST [Catalytic activity/Vol] 18 U/L NINF - 32 U/L [facility] Bilirubin [Mass/Vol] 0.4 mg/dL 0.3 - 1 .2 mg/dL [facility] Calcium [Mass/Vol] 9.1 mg/dL 8.6 - 10. 4 mg/dL [facility] Chloride [Moles/Vol] 102 mmol/L 98 - 10 7 mmol/L [facility] CO2 [Moles/Vol] 27 mmol/L 20 - 31 mmol/L [facility] Creatinine [Mass/Vol] 0.8 mg/dL 0.5 - 0.9 mg/dL [facility] Est, Glom Filt Rate 74 - PINF [facility] Comment on above: These results are not intended for use in patients <18 years of age. eGFR results are calculated without a race factor using the 2020 CKD-EPI equation. Careful clinical correlation is recommended, particularly when comparing to results calculated using previous equations. The CKD-EPI equation is less accurate in patients with extremes of muscle mass, extra-renal metabolism of creatine, excessive creatine ingestion, or following therapy that affects renal tubular secretion. Glucose [Mass/Vol] 108 mg/dL High 70 - 99 mg/dL [employer] Interpretation and review of laboratory results Abnormal [facility] [employer] Potassium [Moles/Vol] 3.5 mmol/L Low 3.7 - 5.3 mmol/L [employer] Protein [Mass/Vol] 6.7 g/dL 6.4 - 8.3 g/dL [facility] [employer] Sodium [Moles/Vol] 141 mmol/L 135 - 144 mmol/L [facility] [employer] Urea nitrogen [Mass/Vol] 16 mg/dL 8 - 23 mg/dL [facility] [employer] Urea nitrogen/Creatinine [Mass ratio] 20 mg/mg 9 - 20 [employer] Lipid Panelon 06-15-2024 Cholesterol [Mass/Vol] 130 mg/dL 0 - 199 mg/dL [employer] Comment on above: Cholesterol Guidelines: <200 Desirable 200-240 Borderline >240 Undesirable Cholesterol in HDL [Mass/Vol] 48 mg/dL 40 - PINF mg/dL [employer] Comment on above: HDL Guidelines: <40 Undesirable 40-59 Borderline >59 Desirable Cholesterol in LDL [Mass/Vol] 48 mg/dL 0 - 100 mg/dL [employer] Comment on above: LDL Guidelines: <100 Desirable 100-129 Near to/above Desirable 130-159 Borderline >159 Undesirable Direct (measured) LDL and calculated LDL are not interchangeable tests. Cholesterol in VLDL [Mass/Vol] 34 mg/dL High 1 - 30 mg/dL [employer] Cholesterol.total/Chol esterol in HDL [Mass ratio] 2.7 {ratio} [employer] Interpretation and review of laboratory results Abnormal [facility] [employer] Triglyceride [Mass/Vol] 168 mg/dL High NINF - 150 mg/dL [employer] Comment on above: Triglyceride Guidelines: <150 Desirable 150-199 Borderline 200-499 High >499 Very high Based on AHA Guidelines for fasting triglyceride, March 2012. [facility] Lipid Profileon 06-15-2024 Cholesterol [Mass/Vol] 130 mg/dL Normal 0-199 [facility] Comment on above: Result Comment: Cholesterol Guidelines: <200 Desirable 200-240 Borderline >240 Undesirable Performed By: #### Z FAST, CP, TSHX, CDP, MG #### [facility] Lab [address] [place], [place] [phone] Plaster Foreman: Demetrice Han MD #### LIPR #### [facility] [employer] [employer] [address] [place] [address] [phone] Plaster Foreman: Jorge Luis Escamilla MD Cholesterol in HDL [Mass/Vol] 48 mg/dL Normal >40 [facility] Comment on above: Result Comment: HDL Guidelines: <40 Undesirable 40-59 Borderline >59 Desirable Performed By: #### Z FAST, CP, TSHX, CDP, MG #### [facility] Lab [address] [place], [place] [id number] Plaster Foreman: Demetrice Han MD #### LIPR #### [facility] [address] [facility] [place], [place] [id number] Plaster Foreman: Jorge Luis Escamilla MD Cholesterol in LDL [Mass/Vol] 48 mg/dL Normal 0-100 [facility] Comment on above: Result Comment: LDL Guidelines: <100 Desirable 100-129 Near to/above Desirable 130-159 Borderline >159 Undesirable Direct (measured) LDL and calculated LDL are not interchangeable tests. Performed By: #### Z FAST, CP, TSHX, CDP, MG #### [facility] [address] [place], [place] [id number] Plaster Foreman: Demetrice Han MD #### LIPR #### [facility] [address] [employer] [address] [place] [id number] Plaster Foreman: Jorge Luis Escamilla MD Cholesterol in VLDL [Mass/Vol] 34 mg/dL High 1-30 [facility] Comment on above: Performed By: #### Z FAST, CP, TSHX, CDP, MG #### [facility] [address] [place], [place] [id number] Plaster Foreman: Demetrice Han MD #### LIPR #### [id number] [place], [place] [id number] Plaster Foreman: Jorge Luis Escamilla MD Cholesterol.total/Chol esterol in HDL [Mass ratio] 2.7 {ratio} Normal [facility] Comment on above: Performed By: #### Z FAST, CP, TSHX, CDP, MG #### [facility] [address] [place], [place] [phone] Plaster Foreman: Demetrice Han MD #### LIPR #### [facility] [address] [place], [place] [id number] Plaster Foreman: Jorge Luis Escamilla MD Triglyceride [Mass/Vol] 168 mg/dL High <150 [facility] Comment on above: Result Comment: Triglyceride Guidelines: <150 Desirable 150-199 Borderline 200-499 High >499 Very high Based on AHA Guidelines for fasting triglyceride, March 2012. Performed By: #### Z FAST, CP, TSHX, CDP, MG #### [facility] [address] [place], [place] [id number] Plaster Foreman: Demetrice Han MD #### LIPR #### [id number] [place], [place] [id number] Plaster Foreman: Jorge Luis Escamilla MD MHPT CBC WITH DIFFon 06-15- 024 Basophils/100 WBC (Bld) 0 % 0 - 2 % [facility] Eosinophils/100 WBC (Bld) 1 % 0 - 5 % [facility] Erythrocyte distribution width (RBC) [Ratio] 14 % 12.1 - 15.2 % [facility] Hematocrit (Bld) [Volume fraction] 34.6 % Low 36.0 - 46.0 % [facility] Hemoglobin (Bld) [Mass/Vol] 11 g/dL Low 12.0 - 16.0 g/dL [facility] Immature granulocytes/100 WBC (Bld) 0 % 0 - 5 % [facility] Interpretation and review of laboratory results Abnormal [facility] Lymphocytes/100 WBC (Bld) 14 % Low 15 - 40 % [facility] MCH (RBC) [Entitic mass] 32.4 pg 26.0 - 34.0 pg [facility] MCHC (RBC) [Mass/Vol] 31.8 g/dL 31.0 - 37.0 g/dL [facility] MCV (RBC) [Entitic vol] 101.8 fL High 80.0 - 100.0 fL [facility] MHPT ABS. [facility].04 [facility] 0.11 [facility] LYMPH 1.62 [facility] MONOCYTE 0.94 [facility].IMM.GRANULOCYTE 0.02 [facility]NEUTROPHIL (SEG) 9.05 High [facility] 235 [facility] W[facility] 11.8 High [facility] Monocytes/100 WBC (Bld) 8 % 4 - 8 % [facility] Platelet mean volume (Bld) [Entitic vol] 8.6 fL 6.0 - 12.0 fL [facility] RBC (Bld) [#/Vol] 3.4 10*6/uL Low 4.00 - 5.2 0 m/uL [facility] Segmented neutrophils/100 WBC (Bld) 77 % High 47 - 75 % [facility] Original Ordering Provider: PAVEL Cazares MD [facility] METABOLIC PROFon 1 08-16-2023 Albumin [Mass/Vol] 3.8 g/dL 3.5 - 5.2 g/dL [facility] ALT [Catalytic activity/Vol] 17 U/L 5 - 33 U/L [facility] Anion gap [Moles/Vol] 12 mmol/L 9 - 17 mmol/L [facility] AST [Catalytic activity/Vol] 18 U/L NINF - 32 U/L [facility] Bilirubin [Mass/Vol] 0.4 mg/dL 0.3 - 1 .2 mg/dL [facility] Calcium [Mass/Vol] 9.1 mg/dL 8.6 - 10. 4 mg/dL [facility] Chloride [Moles/Vol] 102 mmol/L 98 - 10 7 mmol/L [facility] CO2 [Moles/Vol] 27 mmol/L 20 - 31 mmol/L [facility] Creatinine [Mass/Vol] 0.8 mg/dL 0.5 - 0.9 mg/dL [facility] Glucose [Mass/Vol] 108 mg/dL High 70 - 99 mg/dL [facility] Interpretation and review of laboratory results Abnormal [facility] ALKALINE PHOS 52 U/L 35 - 104 U/L [facility] BUN/CRE RATIO 20 9 - 20 [facility] EGFR 74 - PINF [facility] Comment on above: These results are not intended for use in patients <18 years of age. eGFR results are calculated without a race factor using the 2020 CKD-EPI equation. Careful clinical correlation is recommended, particularly when comparing to results calculated using previous equations. The CKD-EPI equation is less accurate in patients with extremes of muscle mass, extra-renal metabolism of creatine, excessive creatine ingestion, or following therapy that affects renal tubular secretion. Potassium [Moles/Vol] 3.5 mmol/L Low 3.7 - 5.3 mmol/L [facility] Protein [Mass/Vol] 6.7 g/dL 6.4 - 8.3 g/dL [facility] Sodium [Moles/Vol] 141 mmol/L 135 - 144 mmol/L [facility] Urea nitrogen [Mass/Vol] 16 mg/dL 8 - 23 mg/dL [facility] PATIENT FASTING?on 05-30 [facility] PATIENT FASTING? NO [facility] Original Ordering Provider: PAVEL [facility]azares MD [facility] Magnesiumon 06-15-2024 Magnesium [Mass/Vol] 1.9 mg/dL 1.6 - 2 .6 mg/dL [facility] Magnesium [Mass/Vol] 1.9 mg/dL Normal 1.6-2.6 [facility] Comment on above: Performed By: #### Z FAST, CP, TSHX, CDP, MG #### [facility] [address] [place] [address] Plaster Foreman: Demetrice Han MD #### LIPR #### [facility] [address] [employer] [address] [place] [address] Plaster Foreman: Jorge Luis Escamilla MD No Panel Informationon 06-15 Original Ordering Provider: [facility]EL [facility] Patient fasting?on 4 Patient fasting? NO Normal [facility] Comment on above: Performed By: #### Z FAST, CP, TSHX, CDP, MG #### [facility] [address] [place] [address] Plaster Foreman: Demetrice Han MD #### LIPR #### [address] [place], [place] [phone] Plaster Foreman: Jorge Luis Escamilla MD TSH w/reflex to FT4on 2023 Thyroid Stim. Horm. 3.62 uIU/mL Normal 0.30-5.00 [facility] Comment on above: Performed By: #### Z FAST, CP, TSHX, CDP, MG #### [facility] [address] [place] [address] Plaster Foreman: Demetrice Han MD #### LIPR #### [facility] [address] [place], [place] [phone] Plaster Foreman: Jorge Luis Escamilla MD TSH with Reflexon 06-15-2024 TSH Qn 3.62 m[IU]/L [facility] XR Chest 2 [place] 4 Radiology Study observation (narrative) [facility] CT 3D RECONSTRUCTIONon 06-08 CT 3D RECONSTRUCTION EXAM: CTA ABDOMINAL AORTA W BILAT RUNOFF W WO CONTRAST HISTORY: Chest pain, unspecified type COMPARISON: CT abdomen and pelvis 05/30/2024 TECHNIQUE: Contrast enhanced CT scans obtained of the abdomen, pelvis and lower extremities. CTA is performed. FINDINGS: CT abdomen and pelvis: No biliary dilatation seen. Cardiac pacemaker leads are noted. Spleen is unremarkable. Pancreas is unremarkable. No renal hydronephrosis is present. There is a 11 mm cortical cyst on the right kidney. Colonic diverticula are present. No fluid is seen within the abdomen or pelvis. The uterus is absent. CT lower extremities: No soft tissue masses are seen in the lower extremities. CTA: No significant celiac or superior mesenteric artery stenosis is seen. There are 2 right-sided renal arteries without significant stenosis. Mild left renal artery stenosis is seen. There is an accessory lower pole left renal artery. Mild inferior mesenteric artery stenosis is present. There is mild ectasia of the distal aorta. Right lower extremity: Less than 50% common iliac artery stenosis is noted. No significant external iliac stenosis is seen. Common femoral and profunda femoris are widely patent. Scattered plaque is seen throughout the superficial femoral artery with less than 50% stenosis at the adductor canal. Three-vessel runoff is seen. Left lower extremity: Less than 50% stenosis seen of the common iliac artery. Less than 50% stenosis seen of the distal left external iliac artery. No significant common femoral or profunda femoris stenosis is present. Plaque is seen within the superficial femoral artery but no significant stenosis. The infrageniculate popliteal artery occludes. There is reconstitution of the anterior tibial artery and distal tibioperoneal trunk. Three-vessel runoff is seen. IMPRESSION: 1. Short segment occlusion of the infrageniculate left popliteal artery with reconstitution of the anterior tibial artery and distal tibial peroneal trunk as noted 2. Less than 50% stenosis of the distal right superficial femoral artery at the adductor canal. 3. Less than 50% bilateral common iliac stenosis and less than 50% left external iliac stenosis. 4. Right renal cyst. 5. Diverticulosis. 6. See above for details. Interpreted by: Keyon Torres MD Signed by: Keyon Torres MD 06/08/24 Final result Normal [facility] CTA ABDOMINAL AORTA W BILAT RUNOFF W WO CONTRASTon 06-08-2024 CTA ABDOMINAL AORTA W BILAT RUNOFF W WO CONTRAST EXAM: CTA ABDOMINAL AORTA W BILAT RUNOFF W WO CONTRAST HISTORY: Chest pain, unspecified type COMPARISON: CT abdomen and pelvis 05/30/2024 TECHNIQUE: Contrast enhanced CT scans obtained of the abdomen, pelvis and lower extremities. CTA is performed. FINDINGS: CT abdomen and pelvis: No biliary dilatation seen. Cardiac pacemaker leads are noted. Spleen is unremarkable. Pancreas is unremarkable. No renal hydronephrosis is present. There is a 11 mm cortical cyst on the right kidney. Colonic diverticula are present. No fluid is seen within the abdomen or pelvis. The uterus is absent. CT lower extremities: No soft tissue masses are seen in the lower extremities. CTA: No significant celiac or superior mesenteric artery stenosis is seen. There are 2 right-sided renal arteries without significant stenosis. Mild left renal artery stenosis is seen. There is an accessory lower pole left renal artery. Mild inferior mesenteric artery stenosis is present. There is mild ectasia of the distal aorta. Right lower extremity: Less than 50% common iliac artery stenosis is noted. No significant external iliac stenosis is seen. Common femoral and profunda femoris are widely patent. Scattered plaque is seen throughout the superficial femoral artery with less than 50% stenosis at the adductor canal. Three-vessel runoff is seen. Left lower extremity: Less than 50% stenosis seen of the common iliac artery. Less than 50% stenosis seen of the distal left external iliac artery. No significant common femoral or profunda femoris stenosis is present. Plaque is seen within the superficial femoral artery but no significant stenosis. The infrageniculate popliteal artery occludes. There is reconstitution of the anterior tibial artery and distal tibioperoneal trunk. Three-vessel runoff is seen. IMPRESSION: 1. Short segment occlusion of the infrageniculate left popliteal artery with reconstitution of the anterior tibial artery and distal tibial peroneal trunk as noted 2. Less than 50% stenosis of the distal right superficial femoral artery at the adductor canal. 3. Less than 50% bilateral common iliac stenosis and less than 50% left external iliac stenosis. 4. Right renal cyst. 5. Diverticulosis. 6. See above for details. Interpreted by: Keyon Torres MD Signed by: Keyon Torres MD 06/08/24 Edited Result - FINAL Normal [facility] Cardiac echo study Procedure Ordered By: Josef Yeboah on 06-08-2024 Aortic Root 1.9 cm [employer] Phone: AR Max Velocity PISA 3.4 m/s [employer] Phone: AR PHT 535.2 millisecond [employer] Phone: Ascending Aorta 2.9 cm [facility] [employer] Phone: AV Area by Peak Velocity 2.4 cm2 [employer] Phone: AV Area by VTI 2.3 cm2 [email or web address] Phone: AV Mean Gradient 3 mmHg Bon Lucyo maxine [employer] Work Phone: AV Mean Velocity 0.9 m/s Yonatan Ayalao maxine [employer] Work Phone: AV Peak Gradient 7 mmHg Bon Lucyo maxine [employer] Work Phone: AV Peak Gradient 6 mmHg Bon Lucyo maxine [employer] Work Phone: AV Peak Velocity 1.3 m/s Bon Seco maxine [employer] Work Phone: AV Peak Velocity 1.2 m/s Bon Lucyo maxine [employer] Work Phone: AV VTI 28.6 cm Yonatan Hwang [employer] Work Phone: E/E' Lateral 58.97 Yonatan [employer] Work Phone: E/E' Ratio (Averaged) 69.43 Yonatan [employer] Work Phone: E/E' Septal 79.89 Yonatan Contorionkatarzyna [employer] Work Phone: EF Physician 55 % Yonatan [employer] Work Phone: Est. RA Pressure 8 mmHg Yonatan goodman [employer] Work Phone: Fractional Shortening 2D 19 % 28 - 44 % Yonatan [employer] Work Phone: Interpretation and review of laboratory results Abnormal Yonatan [employer] Work Phone: IVSd 0.9 cm 0.6 - 0.9 cm Yonatan [employer] Work Phone: LA Diameter 3.4 cm [employer] Work Phone: LA Volume A-L A4C 58 mL Abnormal 22 - 52 mL [employer] Work Phone: LA Volume A-L A4C 52 mL 22 - 52 mL Bon [employer] Work Phone: LA Volume A/L 56 mL Yonatan [employer] Work Phone: LA Volume MOD A2C 56 mL Abnormal 22 - 52 mL Bon Sec ours [employer] Work Phone: LA Volume MOD A4C 47 mL 22 - 52 mL Bon [employer] Work Phone: LA/AO Root Ratio 1.79 Bon [employer]o [employer] Phone: LV E' Lateral Velocity 4.85 cm/s Randall n [employer] Work Phone: LV E' Septal Velocity 3.58 cm/s Bon [employer] Phone: LV EDV A4C 78 mL Bon [employer] Phone: LV Ejection Fraction A4C 59 % Bon [employer] Phone: LV ESV A4C 32 mL Bon [employer] Phone: LV Mass 2D 122.3 g 67 - 162 g Bon [employer] Work Phone: LV RWT Ratio 0.30 [employer] Phone: LVIDd 4.7 cm 3.9 - 5.3 cm Bon [employer] Phone: LVIDs 3.8 cm Bon [employer] Phone: LVOT Area 2.8 cm2 Bon [employer] Work Phone: LVOT Diameter 1.9 cm Bon [employer] Work Phone: LVOT Mean Gradient 3 mmHg Bon Se cours [employer] Work Phone: LVOT Peak Gradient 5 mmHg Bon Se cours [employer] Work Phone: LVOT Peak Velocity 1.1 m/s Bon Se [employer]s [employer] Work Phone: LVOT SV 68.9 ml Bon [employer] Work Phone: LVOT VTI 24.3 cm Bon [facility] Work Phone: LVOT:AV VTI Index 0.85 Yonatan colón [employer] Work Phone: LVPWd 0.7 cm 0.6 - 0.9 cm Yonatan Hwang [employer] Work Phone: MR Peak Gradient 29 mmHg Yonatan Seco maxine [employer] Work Phone: MR Peak Velocity 2.7 m/s Yonatan Seco maxine [employer] Work Phone: MR VTI 85.9 cm Yonatan Hwang [employer] Work Phone: MV A Velocity 0.53 m/s Yonatan Hwang [employer] Work Phone: MV Area by PHT 0.4 cm2 Yonatan cazares [employer] Work Phone: MV Area by VTI 1.0 cm2 Yonatan cazares [employer] Work Phone: MV E Velocity 2.86 m/s Yonatan Hwang [employer] Work Phone: MV E Wave Deceleration Time 225.9 ms Yonatan Contorionkatarzyna [employer] Work Phone: MV E/A 5.40 Yonatan Hwang [employer] Work Phone: MV Max Velocity 2.8 m/s Yonatan nance [employer] Work Phone: MV Mean Gradient 11 mmHg Bon Seco maxine [employer] Work Phone: MV Mean Velocity 1.4 m/s Yonatan Seco maxine [employer] Work Phone: MV Peak Gradient 31 mmHg Yonatan Seco maxine [employer] Work Phone: MV PHT 494.4 ms Yonatan Hwang [employer] Work Phone: MV VTI 71.4 cm Yonatan Contorionkatarzyna [employer] Work Phone: MV:LVOT VTI Index 2.94 Yonatan Contorion katarzyna [employer] Work Phone: MS Max Velocity 1.3 m/s Bon [employer] Work Phone: Pulmonary Artery EDP 7 mmHg [employer] Work Phone: PV Max Velocity 0.6 m/s Yonatan [employer] Work Phone: PV Peak Gradient 2 mmHg Bon Contoriono [employer] Work Phone: RA Volume 40 ml Bon [employer] Work Phone: RA Volume 38 ml [employer] Work Phone: RVIDd 3.4 cm [employer] Phone: RVSP 64 mmHg [employer] Phone: TR Max Velocity 3.73 m/s Bon [employer] Phone: TR Peak Gradient 56 mmHg Bon [employer] Work Phone: Yonatan [employer] Phone: Cardiac echo study Procedure on 06-08-2024 Left Ventricle: Low normal left ventricular systolic function. Left ventricle size is normal. Normal wall thickness. Normal wall motion. Right Ventricle: Right ventricle is mildly dilated. Lead present in the right ventricle. Aortic Valve: Mild to moderate regurgitation with a centrally directed jet. Mitral Valve: Hernandez porcine bioprosthetic valve with restricted leaflet motion with a size of 25 mm. Moderately thickened leaflets. Moderately calcified leaflets. Mild regurgitation with an eccentrically directed jet and may underestimate severity. Severe stenosis noted. Elevated prosthetic gradient. MV mean gradient is 11 mmHg. MV PHT is 494.4 ms. MV area by PHT is 0.4 cm2. MV Area by VTI is 1.0 cm2. Tricuspid Valve: Mild regurgitation with a centrally directed jet. Severely elevated RVSP, consistent with severe pulmonary hypertension. The estimated RVSP is 64 mmHg. Left Atrium: Left atrium is moderately dilated. Right Atrium: Multiple leads present in the right atrium. Right atrium is mildly dilated. Image quality is fair. Contrast used: Definity. Technically difficult study. Low normal to normal left ventricular function with ejection fraction of ~55% No significant regional wall motion abnormality Moderate left atrial enlargement Mild right-sided chamber enlargement Severe mitral stenosis of #25 mm bioprosthetic Hernandez valve with mean gradient of 11 mmHg and mitral valve area of 1 cm (high velocity diastolic mosaic color flow jet through mitral valve noted) Mild eccentric mitral regurgitation with posteriorly directed jet Mild tricuspid regurgitation Severe elevation of RVSP at 64 mmHg consistent with significant pulmonary hypertension Valvular findings and RVSP have worsened when compared to prior echocardiogram imaging with POLO 11/01/2021 and TTE 07/16/[address]Vigesaa Josef Yeboah, DO, FACC, FACOI, FCCP Left Ventricle Low normal left ventricular systolic function. Left ventricle size is normal. Normal wall thickness. Normal wall motion. Indeterminate diastolic function due to mitral valve surgery. Right Ventricle Right ventricle is mildly dilated. Lead present in the right ventricle. Normal systolic function. Left Atrium Left atrium is moderately dilated. Right Atrium Multiple leads present in the right atrium. Right atrium is mildly dilated. Mitral Valve Hernandez porcine bioprosthetic valve with restricted leaflet motion with a size of 25 mm. Moderately thickened leaflets. Moderately calcified leaflets. Mild regurgitation with an eccentrically directed jet and may underestimate severity. Severe stenosis noted. Elevated prosthetic gradient. MV mean gradient is 11 mmHg. MV PHT is 494.4 ms. MV area by PHT is 0.4 cm2. MV Area by VTI is 1.0 cm2. Tricuspid Valve Valve structure is normal. Mild regurgitation with a centrally directed jet. No stenosis noted. Severely elevated RVSP, consistent with severe pulmonary hypertension. The estimated RVSP is 64 mmHg. Aortic Valve Valve structure is normal. Mild to moderate regurgitation with a centrally directed jet. No stenosis. Pulmonic Valve Physiologically normal regurgitation. No stenosis noted. Ascending Aorta Normal sized aorta. Pericardium No pericardial effusion. Study Details Image quality: fair. The underlying ECG rhythm was V-paced. Cardiac history: prosthetic valve, prior CABG and PPM/AICD. Technically difficult study. Definity contrast was given to enhance imaging. Wall Scoring Baseline Score Index: 1.06 The following segments are hypokinetic: basal inferoseptal. All other segments are normal. [facility] Radiology Study observation (narrative) [facility] No Panel Informationon 06-08 1. Short segment occlusion of the infrageniculate left popliteal artery with reconstitution of the anterior tibial artery and distal tibial peroneal trunk as noted 2. Less than 50% stenosis of the distal right superficial femoral artery at the adductor canal. 3. Less than 50% bilateral common iliac stenosis and less than 50% left external iliac stenosis. 4. Right renal cyst. 5. Diverticulosis. 6. See above for details. [facility] EXAM: CTA ABDOMINAL AORTA W BILAT RUNOFF W WO CONTRAST HISTORY: Chest pain, unspecified type COMPARISON: CT abdomen and pelvis 05/30/2024 TECHNIQUE: Contrast enhanced CT scans obtained of the abdomen, pelvis and lower extremities. CTA is performed. FINDINGS: CT abdomen and pelvis: No biliary dilatation seen. Cardiac pacemaker leads are noted. Spleen is unremarkable. Pancreas is unremarkable. No renal hydronephrosis is present. There is a 11 mm cortical cyst on the right kidney. Colonic diverticula are present. No fluid is seen within the abdomen or pelvis. The uterus is absent. CT lower extremities: No soft tissue masses are seen in the lower extremities. CTA: No significant celiac or superior mesenteric artery stenosis is seen. There are 2 right-sided renal arteries without significant stenosis. Mild left renal artery stenosis is seen. There is an accessory lower pole left renal artery. Mild inferior mesenteric artery stenosis is present. There is mild ectasia of the distal aorta. Right lower extremity: Less than 50% common iliac artery stenosis is noted. No significant external iliac stenosis is seen. Common femoral and profunda femoris are widely patent. Scattered plaque is seen throughout the superficial femoral artery with less than 50% stenosis at the adductor canal. Three-vessel runoff is seen. Left lower extremity: Less than 50% stenosis seen of the common iliac artery. Less than 50% stenosis seen of the distal left external iliac artery. No significant common femoral or profunda femoris stenosis is present. Plaque is seen within the superficial femoral artery but no significant stenosis. The infrageniculate popliteal artery occludes. There is reconstitution of the anterior tibial artery and distal tibioperoneal trunk. Three-vessel runoff is seen. [facility] Keyon Torres MD - 06/10/2024 EXAM: CTA ABDOMINAL AORTA W BILAT RUNOFF W WO CONTRAST HISTORY: Chest pain, unspecified type COMPARISON: CT abdomen and pelvis 05/30/2024 TECHNIQUE: Contrast enhanced CT scans obtained of the abdomen, pelvis and lower extremities. CTA is performed. FINDINGS: CT abdomen and pelvis: No biliary dilatation seen. Cardiac pacemaker leads are noted. Spleen is unremarkable. Pancreas is unremarkable. No renal hydronephrosis is present. There is a 11 mm cortical cyst on the right kidney. Colonic diverticula are present. No fluid is seen within the abdomen or pelvis. The uterus is absent. CT lower extremities: No soft tissue masses are seen in the lower extremities. CTA: No significant celiac or superior mesenteric artery stenosis is seen. There are 2 right-sided renal arteries without significant stenosis. Mild left renal artery stenosis is seen. There is an accessory lower pole left renal artery. Mild inferior mesenteric artery stenosis is present. There is mild ectasia of the distal aorta. Right lower extremity: Less than 50% common iliac artery stenosis is noted. No significant external iliac stenosis is seen. Common femoral and profunda femoris are widely patent. Scattered plaque is seen throughout the superficial femoral artery with less than 50% stenosis at the adductor canal. Three-vessel runoff is seen. Left lower extremity: Less than 50% stenosis seen of the common iliac artery. Less than 50% stenosis seen of the distal left external iliac artery. No significant common femoral or profunda femoris stenosis is present. Plaque is seen within the superficial femoral artery but no significant stenosis. The infrageniculate popliteal artery occludes. There is reconstitution of the anterior tibial artery and distal tibioperoneal trunk. Three-vessel runoff is seen. IMPRESSION: 1. Short segment occlusion of the infrageniculate left popliteal artery with reconstitution of the anterior tibial artery and distal tibial peroneal trunk as noted 2. Less than 50% stenosis of the distal right superficial femoral artery at the adductor canal. 3. Less than 50% bilateral common iliac stenosis and less than 50% left external iliac stenosis. 4. Right renal cyst. 5. Diverticulosis. 6. See above for details. [facility] ForeSee Radiology Study observation (narrative) [facility] No Panel InformationOrdered By: Keyon Torres on 06-08-2024 [facility] US GALLBLADDER RUQon 024 US GALLBLADDER RUQ EXAM: US GALLBLADDER RUQ HISTORY:. Chest pain, unspecified type . COMPARISON: None. TECHNIQUE: Grayscale and color imaging was performed FINDINGS: The liver is normal in size. No masses are noted. Color-flow is noted in the portal and hepatic veins. The gallbladder appears normal with no stones or sludge identified. No gallbladder wall thickening is noted. Common bile duct measures 7 mm. Right kidney measures 10 x 3.1 x 4.4 cm. Color-flow is noted. No solid renal cortical masses or hydronephrosis is noted. There is a 1.4 x 1.2 cm cyst involving the right kidney. The pancreas was obscured due to overlying bowel gas. No fluid is noted in the right upper quadrant. IMPRESSION: 1. The pancreas was obscured due to overlying bowel gas. 2. 1.4 cm simple cyst involving the right kidney. No hydronephrosis. 3. The remainder the right upper quadrant was unremarkable. Interpreted by: Demetrice Zhou MD Signed by: Demetrice Zhou MD 06/08/24 Final result Normal [facility] US Gallbladderon 06-08-2024 1. The pancreas was obscured due to overlying bowel gas. 2. 1.4 cm simple cyst involving the right kidney. No hydronephrosis. 3. The remainder the right upper quadrant was unremarkable. PN RIS CONSOLIDATED EXAM: US GALLBLADDER RUQ HISTORY:. Chest pain, unspecified type . COMPARISON: None. TECHNIQUE: Grayscale and color imaging was performed FINDINGS: The liver is normal in size. No masses are noted. Color-flow is noted in the portal and hepatic veins. The gallbladder appears normal with no stones or sludge identified. No gallbladder wall thickening is noted. Common bile duct measures 7 mm. Right kidney measures 10 x 3.1 x 4.4 cm. Color-flow is noted. No solid renal cortical masses or hydronephrosis is noted. There is a 1.4 x 1.2 cm cyst involving the right kidney. The pancreas was obscured due to overlying bowel gas. No fluid is noted in the right upper quadrant. PN RIS CONSOLIDATED Demetrice Zhou MD - 06/08/2024 EXAM: US GALLBLADDER RUQ HISTORY:. Chest pain, unspecified type . COMPARISON: None. TECHNIQUE: Grayscale and color imaging was performed FINDINGS: The liver is normal in size. No masses are noted. Color-flow is noted in the portal and hepatic veins. The gallbladder appears normal with no stones or sludge identified. No gallbladder wall thickening is noted. Common bile duct measures 7 mm. Right kidney measures 10 x 3.1 x 4.4 cm. Color-flow is noted. No solid renal cortical masses or hydronephrosis is noted. There is a 1.4 x 1.2 cm cyst involving the right kidney. The pancreas was obscured due to overlying bowel gas. No fluid is noted in the right upper quadrant. IMPRESSION: 1. The pancreas was obscured due to overlying bowel gas. 2. 1.4 cm simple cyst involving the right kidney. No hydronephrosis. 3. The remainder the right upper quadrant was unremarkable. [facility] Radiology Study observation (narrative) [facility] US GallbladderOrdered By: Claude Zhou on 06-08-2024 [facility] Work Phone: ALL BASIC METABOLIC PANELon 06-01-2024 Anion gap [Moles/Vol] 17 mmol/L 9 - 17 mmol/L [facility] Calcium [Mass/Vol] 9.6 mg/dL 8.6 - 10. 4 mg/dL [facility] Chloride [Moles/Vol] 100 mmol/L 98 - 10 7 mmol/L [facility] CO2 [Moles/Vol] 23 mmol/L 20 - 31 mmol/L [facility] Creatinine [Mass/Vol] 1.2 mg/dL High 0.5 - 0.9 mg/dL [facility] Glucose [Mass/Vol] 108 mg/dL High 70 - 99 mg/dL [facility] Interpretation and review of laboratory results [facility]normal [facility] 19 9 - 20 [facility] EGFR 46 Low - PINF [facility] Comment on above: These results are not intended for use in patients <18 years of age. eGFR results are calculated without a race factor using the 2020 CKD-EPI equation. Careful clinical correlation is recommended, particularly when comparing to results calculated using previous equations. The CKD-EPI equation is less accurate in patients with extremes of muscle mass, extra-renal metabolism of creatine, excessive creatine ingestion, or following therapy that affects renal tubular secretion. Potassium [Moles/Vol] 4.3 mmol/L 3.7 - 5.3 mmol/L [facility] Sodium [Moles/Vol] 140 mmol/L 135 - 144 mmol/L [facility] Urea nitrogen [Mass/Vol] 23 mg/dL 8 - 23 mg/dL [facility] Original Ordering Provider: PAVEL STAFFORD [facility] Basic Metabolic Panelon 12-0 Anion gap [Moles/Vol] 17 mmol/L 9 - 17 mmol/L [facility] Calcium [Mass/Vol] 9.6 mg/dL 8.6 - 10. 4 mg/dL [facility] Chloride [Moles/Vol] 100 mmol/L 98 - 10 7 mmol/L [facility] CO2 [Moles/Vol] 23 mmol/L 20 - 31 mmol/L [facility] Creatinine [Mass/Vol] 1.2 mg/dL High 0.5 - 0.9 mg/dL [facility] Est, Glochris Filt Rate 46 Low - PINF [facility] Comment on above: These results are not intended for use in patients <18 years of age. eGFR results are calculated without a race factor using the 2020 CKD-EPI equation. Careful clinical correlation is recommended, particularly when comparing to results calculated using previous equations. The CKD-EPI equation is less accurate in patients with extremes of muscle mass, extra-renal metabolism of creatine, excessive creatine ingestion, or following therapy that affects renal tubular secretion. Glucose [Mass/Vol] 108 mg/dL High 70 - 99 mg/dL [facility] Interpretation and review of laboratory results Abnormal [facility] Potassium [Moles/Vol] 4.3 mmol/L 3.7 - 5.3 mmol/L [facility] Sodium [Moles/Vol] 140 mmol/L 135 - 144 mmol/L [facility] Urea nitrogen [Mass/Vol] 23 mg/dL 8 - 23 mg/dL [facility] Urea nitrogen/Creatinine [Mass ratio] 19 mg/mg 9 - 20 [facility] Basic Metabolic Profon 06-01 Anion gap [Moles/Vol] 17 mmol/L Normal 9-17 [facility] Comment on above: Performed By: #### B MP #### [facility] Lab [address] [place] [address] Plaster Foreman: Demetrice Han MD BUN/CRE Ratio 19 Normal -20 [facility] Comment on above: Performed By: #### B MP #### [facility] Lab [address] [place], [place] [phone] Plaster Foreman: Demetrice Han MD Calcium [Mass/Vol] 9.6 mg/dL Normal 8.6-10.4 [facility] Comment on above: Performed By: #### B MP #### [facility] Lab [address] [place] [address] Plaster Foreman: Demetrice Han MD Chloride [Moles/Vol] 100 mmol/L Normal 98-107 [facility] Comment on above: Performed By: #### B MP #### [facility] Lab [address] [place], [place] [phone] (108) Plaster Foreman: Demetrice Han MD CO2 [Moles/Vol] 23 mmol/L Normal 20-31 [facility] Comment on above: Performed By: #### B MP #### [facility] Lab [address] [place], [place] [phone] Plaster Foreman: Demetrice Han MD Creatinine [Mass/Vol] 1.2 mg/dL High 0.5-0.9 [facility] Comment on above: Performed By: #### B MP #### [facility] Lab [address] [place], [place] [phone] Plaster Foreman: Demetrice Han MD GFR/1.73 sq M.predicted among non-blacks MDRD (S/P/Bld) [Vol rate/Area] 46 mL/min/{1.73_m2} Low >60 [facility] Comment on above: Result Comment: These results are not intended for use in patients <18 years of age. eGFR results are calculated without a race factor using the 2020 CKD-EPI equation. Careful clinical correlation is recommended, particularly when comparing to results calculated using previous equations. The CKD-EPI equation is less accurate in patients with extremes of muscle mass, extra-renal metabolism of creatine, excessive creatine ingestion, or following therapy that affects renal tubular secretion. Performed By: #### B MP #### [facility] [address] [place] [address] Plaster Foreman: Demetrice Han MD Glucose [Mass/Vol] 108 mg/dL High 70-99 [facility] Comment on above: Performed By: #### B MP #### [facility] [address] [place] [address] Plaster Foreman: Demetrice Han MD Potassium [Moles/Vol] 4.3 mmol/L Normal 3.7-5.3 [facility] Comment on above: Performed By: #### B MP #### [facility] Lab [address] [place] [address] Plaster Foreman: Demetrice Han MD Sodium [Moles/Vol] 140 mmol/L Normal 135-144 [facility] Comment on above: Performed By: #### B MP #### [facility] Lab [address] [place] [address] Plaster Foreman: Demetrice Han MD Urea nitrogen [Mass/Vol] 23 mg/dL Normal 8-23 [facility] Comment on above: Performed By: #### B MP #### [facility] Lab [address] [place] [address] Plaster Foreman: Demetrice Han MD Lipid Profileon 07-22-2023 Cholesterol [Mass/Vol] 130 mg/dL Normal 0-199 [facility] Comment on above: Result Comment: Cholesterol Guidelines: <200 Desirable 200-240 Borderline >240 Undesirable Performed By: #### C P, CDP, MG, TSHX ####[facility] [address] [place] [address] Lab Director: Demetrice Han MD#### LIPR, VD25 ####[facility] [place], [place] [phone] Lab Director: Jorge Luis Escamilla MD Cholesterol in HDL [Mass/Vol] 43 mg/dL Normal >40 [facility] Comment on above: Result Comment: HDL Guidelines: <40 Undesirable 40-59 Borderline >59 Desirable Performed By: #### C P, CDP, MG, TSHX ####[facility] Myy[address] [place] [address] Lab Director: Demetrice Han MD#### LIPR, VD25 ####[address] [place] [address] Lab Director: Jorge Luis Escamilla MD Cholesterol in LDL [Mass/Vol] 40 mg/dL Normal 0-100 [facility] Comment on above: Result Comment: LDL Guidelines: <100 Desirable 100-129 Near to/above Desirable 130-159 Borderline >159 Undesirable Direct (measured) LDL and calculated LDL are not interchangeable tests. Performed By: #### C P, CDP, MG, TSHX ####[facility] [address] [place] [address] Lab Director: Demetrice Han MD#### LIPR, VD25 ####[address] [address] Lab Director: Jorge Luis Escamilla MD Cholesterol in VLDL [Mass/Vol] 48 mg/dL Normal [facility] Comment on above: Performed By: #### C P, CDP, MG, TSHX ####[facility] Czh[address] [place], [place] [phone] Lab Director: Demetrice Han MD#### LIPR, VD25 ####[address] [address] Lab Director: Jorge Luis Escamilla MD Cholesterol.total/Chol esterol in HDL [Mass ratio] 3.0 {ratio} Normal [facility] Comment on above: Performed By: #### C P, CDP, MG, TSHX ####[facility] [address] [place], [place] [phone] Lab Director: Demetrice Han MD#### LIPR, VD25 ####[facility] [address] [place] [address] Lab Director: Jorge Luis Escamilla MD Triglyceride [Mass/Vol] 238 mg/dL High <150 [facility] Comment on above: Result Comment: Triglyceride Guidelines: <150 Desirable 150-199 Borderline 200-499 High >499 Very high Based on AHA Guidelines for fasting triglyceride, March 2012. Performed By: #### C P, CDP, MG, TSHX ####[facility] [address] [place] [address] Lab Director: Demetrice Han MD#### ANYA, VD25 ####[address] [place] [address] Lab Director: Jorge Luis Escamilla MD Vitamin D 25 OHon 07-22-2023 Vitamin D 25 [place] 63.0 ng/mL Normal 30.0-100.0 [facility] Comment on above: Result Comment: Reference Range: Vitamin D status Range Deficiency <20 ng/mL Mild Deficiency 20-30 ng/mL Sufficiency 30-100 ng/mL Toxicity >100 ng/mL Performed By: #### C P, CDP, MG, TSHX ####[facility] [address]zq[address] [place] [address] Lab Director: Demetrice Han MD#### ANYA, VD25 ####[facility] [address] [place] [address] Lab Director: Jorge Luis Escamilla MD CBC with Diffon 07-21-2023 Abs. Basophil 0.03 k/uL Normal 0.00-0.20 [facility] Comment on above: Performed By: #### C P, CDP, MG, TSHX ####[facility] [address] [place] [address] Lab Director: Demetrice Han MD#### LIPR, VD25 ####[address] [place], [place] [phone] Lab Director: Jorge Luis Escamilla MD Abs.Imm.Granulocyte 0.02 k/uL Normal 0.00-0.30 [facility] Comment on above: Performed By: #### C P, CDP, MG, TSHX ####[facility] [address] [place] [address] Lab Director: Demetrice Han MD#### LIPR, VD25 ####[address] [place] [address] Lab Director: Jorge Luis Escamilla MD Abs.Neutrophil (Seg) 12.19 k/uL High 2.5-7.0 [facility] Comment on above: Performed By: #### C P, CDP, MG, TSHX ####[facility] [address] [place], [place] [address])[phone] Director: Demetrice Han MD#### ANYA VD25 ####[place] [address] Lab Director: Jorge Luis Escamilla MD Basophils/100 WBC (Bld) 0 % Normal 0-2 [facility] Comment on above: Performed By: #### C P, CDP, MG, TSHX ####[facility] [address] [place] [address] lab Director: Demetrice Han MD#### ANYA VD25 ####[address] [address] Lab Director: Jorge Luis Escamilla MD Eosinophils (Bld) [#/Vol] 0.07 10*3/uL Normal 0.00-0.40 [facility] Comment on above: Performed By: #### C P, CDP, MG, TSHX ####[facility] [address] [place] [phone] Lab Director: Demetrice Han MD#### LIPR, VD25 ####[address] [place], [place] 6089[address] Lab Director: Jorge Luis Escamilla MD Eosinophils/100 WBC (Bld) 1 % Normal 0-5 [facility] Comment on above: Performed By: #### C P, CDP, MG, TSHX ####[facility] [address] [place], [place] [address])[phone] Director: Demetrice Han MD#### LIPR, VD25 ####[place] [address] Lab Director: Jorge Luis Escamilla MD Erythrocyte distribution width (RBC) [Ratio] 13.2 % Normal 12.1-15.2 [facility] Comment on above: Performed By: #### C P, CDP, MG, TSHX ####[facility] [address] [place], [place] [address])[phone] Director: Demetrice Han MD#### LIPR, VD25 ####[place] [address] Lab Director: Jorge Luis Escamilla MD Hematocrit (Bld) [Volume fraction] 40.1 % Normal 36.0-46.0 [facility] Comment on above: Performed By: #### C P, CDP, MG, TSHX ####[facility] [address] [place], [place] [address])[phone] Director: Demetrice Han MD#### LIPR, VD25 ####[place] [address] Lab Director: Jorge Luis Escamilla MD Hemoglobin (Bld) [Mass/Vol] 13.0 g/dL Normal 12.0-16.0 [facility] Comment on above: Performed By: #### C P, CDP, MG, TSHX ####[facility] [address] [place] [address]([facility])[phone] Director: Demetrice Han MD#### LIPR, VD25 ####[address] [place] [address] Lab Director: Jorge Luis Escamilla MD Immature granulocytes/100 WBC (Bld) 0 % Normal 0-5 [facility] Comment on above: Performed By: #### C P, CDP, MG, TSHX ####[facility] [address] [place] [id number]([facility])[phone] Director: Demetrice Han MD#### LIPR, VD25 ####[address] [place] [address] Lab Director: Jorge Luis Escamilla MD Lymphocytes (Bld) [#/Vol] 1.36 10*3/uL Normal 1.00-4.80 [facility] Comment on above: Performed By: #### C P, CDP, MG, TSHX ####[facility] [address] [place] [address] Lab Director: Demetrice Han MD#### LIPR, VD25 ####[place] [address] Lab Director: Jorge Luis Escamilla MD Lymphocytes/100 WBC (Bld) 9 % Low 15-40 [facility] Comment on above: Performed By: #### C P, CDP, MG, TSHX ####[facility] [address] [place] [phone] Lab Director: Demetrice Han MD#### LIPR, VD25 ####[address] [place] [address] Lab Director: Jorge Luis Escamilla MD MCH (RBC) [Entitic mass] 31.7 pg Normal 26.0-34.0 [facility] Comment on above: Performed By: #### C P, CDP, MG, TSHX ####[facility] Hkn[address]1 [place] [address] Lab Director: Demetrice Han MD#### LIPR, VD25 ####[address] [address] Lab Director: Jorge Luis Escamilla MD MCHC (RBC) [Mass/Vol] 32.4 g/dL Normal 31.0-37.0 [facility] Comment on above: Performed By: #### C P, CDP, MG, TSHX ####[facility] [address] [place], [place] [address])[phone] Director: Demetrice Han MD#### LIPR, VD25 ####[place], [place] [address])[phone] Director: Jorge Luis Escamilla MD MCV (RBC) [Entitic vol] 97.8 fL Normal 80.0-100.0 [facility] Comment on above: Performed By: #### C P, CDP, MG, TSHX ####[facility] [address] [place], [place] [address])[phone] Director: Demetrice Han MD#### LIPR, VD25 ####[place] [address] Lab Director: Jorge Luis Escamilla MD Monocytes (Bld) [#/Vol] 1.00 10*3/uL Normal 0.00-1.00 [facility] Comment on above: Performed By: #### C P, CDP, MG, TSHX ####[facility] [address] [place] [address] Lab Director: Demetrice Han MD#### LIPR, VD25 ####[address] [place] [address] Lab Director: Jorge Luis Escamilla MD Monocytes/100 WBC (Bld) 7 % Normal 4-8 [facility] Comment on above: Performed By: #### C P, CDP, MG, TSHX ####[facility] [address] [place], [place] [phone] Director: Demetrice Han MD#### LIPR, VD25 ####[facility] [place], [place] [phone])[phone] Director: Jorge Luis Escamilla MD Neutrophil (Seg) 83 % High 47-75 [facility] Comment on above: Performed By: #### C P, CDP, MG, TSHX ####[facility] [address] [place], [place] [phone])[phone] Director: Demetrice Han MD#### LIPR, VD25 ####[address] [place] [address] Lab Director: Jorge Luis Escamilla MD Platelet mean volume (Bld) [Entitic vol] 8.9 fL Normal 6.0-12.0 [facility] Comment on above: Performed By: #### C P, CDP, MG, TSHX ####[facility] [address] [place] [address] Lab Director: Demetrice Han MD#### LIPR, VD25 ####[facility] [place] [address] [phone] Director: Jorge Luis Escamilla MD Platelets (Bld) [#/Vol] 218 10*3/uL Normal 140-450 [facility] Comment on above: Performed By: #### C P, CDP, MG, TSHX ####[facility] [address] [place], [place] [phone])[phone] Director: Demetrice Han MD#### LIPR, VD25 ####[address] [place] [address] Lab Director: Jorge Luis Escamilla MD RBC (Bld) [#/Vol] 4.10 10*6/uL Normal 4.00-5.20 [facility] Comment on above: Performed By: #### C P, CDP, MG, TSHX ####[facility] [address] [place], [place] [phone] Director: Demetrice Han MD#### LIPR, VD25 ####[facility] [address] [place], [place] [phone])[phone] Director: Jorge Luis Escamilla MD WBC (Bld) [#/Vol] 14.7 10*3/uL High 3.5-11.0 [facility] Comment on above: Performed By: #### C P, CDP, MG, TSHX ####[facility] [address] [place], [place] [address])[phone] Director: Demetrice Han MD#### LIPR, VD25 ####[address] [place], [place] [phone] Director: Jorge Luis Escamilla MD Comp Metabolic Profon 2023 Albumin [Mass/Vol] 4.0 g/dL Normal 3.5-5.2 [facility] Comment on above: Performed By: #### C P, CDP, MG, TSHX ####[facility] [address] [place], [place] [address])[phone] Director: Demetrice Han MD#### LIPR, VD25 ####[facility] [address] [place], [place] [phone])[phone] Director: Jorge Luis Escamilla MD Alkaline Phos 51 U/L Normal 35-104 [facility] Comment on above: Performed By: #### C P, CDP, MG, TSHX ####[facility] [address] [place], [place] [phone] Director: Demetrice Han MD#### LIPR, VD25 ####[facility] [place] [address] Lab Director: Jorge Luis Escamilla MD ALT [Catalytic activity/Vol] 11 U/L Normal 5-33 [facility] Comment on above: Performed By: #### C P, CDP, MG, TSHX ####[facility] [address] [place] [address] Lab Director: Demetrice Han MD#### LIPR, VD25 ####[address] [place], [place] 3369[address] Lab Director: Jorge Luis Escamilla MD Anion gap [Moles/Vol] 13 mmol/L Normal 9-17 [facility] Comment on above: Performed By: #### C P, CDP, MG, TSHX ####[facility] [address]ym[address] [place], [place] [phone] Lab Director: Demetrice Han MD#### LIPR, VD25 ####[address] [place], [place] [phone] Lab Director: Jorge Luis Escamilla MD AST [Catalytic activity/Vol] 19 U/L Normal <32 [facility] Comment on above: Performed By: #### C P, CDP, MG, TSHX ####[facility] [address]25[address] [place], [place] [phone] Lab Director: Demetrice Han MD#### LIPR, VD25 ####[address] [place] [address] Lab Director: Jorge Luis Escamilla MD Bilirubin [Mass/Vol] 0.4 mg/dL Normal 0.3-1.2 [facility] Comment on above: Performed By: #### C P, CDP, MG, TSHX ####[facility] [address]lc9958 [place], [place] [phone] Lab Director: Demetrice Han MD#### LIPR, VD25 ####[facility] [place], [place] 8043508 Lab Director: Jorge Luis Escamilla MD BUN/CRE Ratio 28 High 9-20 [facility] Comment on above: Performed By: #### C P, CDP, MG, TSHX ####[facility] [facility] [id number] [place] [address]([facility])[phone] Director: Demetrice Han MD#### LIPR, VD25 ####[address] [place], [place] [id number] Lab Director: Jorge Luis Escamilla MD Calcium [Mass/Vol] 9.7 mg/dL Normal 8.6-10.4 [facility] Comment on above: Performed By: #### C P, CDP, MG, TSHX ####[facility] [id number] [place], [place] [address])[phone] Director: Demetrice Han MD#### LIPR, VD25 ####[address] [place] [address] Lab Director: Jorge Luis Escamilla MD Chloride [Moles/Vol] 101 mmol/L Normal 98-107 [facility] Comment on above: Performed By: #### C P, CDP, MG, TSHX ####[facility] [id number] [place], [place] [address])[phone] Director: Demetrice Han MD#### LIPR, VD25 ####[address] [place] [address] Lab Director: Jorge Luis Escamilla MD CO2 [Moles/Vol] 24 mmol/L Normal 20-31 [facility] Comment on above: Performed By: #### C P, CDP, MG, TSHX ####[facility] [id number] [place], [place] [id number] lab Director: Demetrice Han MD#### LIPAreli, VD25 ####[facility] [place], [place] [id number] Lab Director: Jorge Luis Escamilla MD Creatinine [Mass/Vol] 0.8 mg/dL Normal 0.5-0.9 [facility] Comment on above: Performed By: #### C P, CDP, MG, TSHX ####[facility] [id number] [place], [place] [id number] lab Director: Demetrice Han MD#### ANYA, VD25 ####[address] [place], [place] [phone] Lab Director: Jorge Luis Escamilla MD GFR/1.73 sq M.predicted among non-blacks MDRD (S/P/Bld) [Vol rate/Area] mL/min/{1.73_m2} Normal >60 [facility] Comment on above: Result Comment: These results are not intended for use in patients <18 years of age. eGFR results are calculated without a race factor using the 2020 CKD-EPI equation. Careful clinical correlation is recommended, particularly when comparing to results calculated using previous equations. The CKD-EPI equation is less accurate in patients with extremes of muscle mass, extra-renal metabolism of creatine, excessive creatine ingestion, or following therapy that affects renal tubular secretion. Performed By: #### C P, CDP, MG, TSHX ####[facility] [id number] [place] [address] Lab Director: Demetrice Han MD#### ANYA, VD25 ####[address] [place] [address] Lab Director: Jorge Luis Escamilla MD Glucose [Mass/Vol] 91 mg/dL Normal 70-99 [facility] Comment on above: Performed By: #### C P, CDP, MG, TSHX ####[facility] [id number] [place] [address] lab Director: Demetrice Han MD#### LIPR, VD25 ####[facility] [place] [address] Lab Director: Jorge Luis Escamilla MD Potassium [Moles/Vol] 4.8 mmol/L Normal 3.7-5.3 [facility] Comment on above: Performed By: #### C P, CDP, MG, TSHX ####[facility] [id number] [place] [address] lab Director: Demetrice Han MD#### LIPR, VD25 ####[address] [address] Lab Director: Jorge Luis Escamilla MD Protein [Mass/Vol] 7.0 g/dL Normal 6.4-8.3 [facility] Comment on above: Performed By: #### C P, CDP, MG, TSHX ####[facility] [id number] [place] [address] lab Director: Demetrice Han MD#### LIPR, VD25 ####[address] [address] Lab Director: Jorge Luis Escamilla MD Sodium [Moles/Vol] 138 mmol/L Normal 135-144 [facility] Comment on above: Performed By: #### C P, CDP, MG, TSHX ####[facility] [id number] [place] [address] Lab Director: Demetrice Han MD#### LIPR, VD25 ####[address] [place] [address] Lab Director: Jorge Luis Escamilla MD Urea nitrogen [Mass/Vol] 22 mg/dL Normal 8-23 [facility] Comment on above: Performed By: #### C P, CDP, MG, TSHX ####[facility] [id number] [place] [address] lab Director: Demetrice Han MD#### LIPR, VD25 ####[facility] [address] [place], [place] [id number] Lab Director: Jorge Luis Escamilla MD Magnesiumon 07-21-2023 Magnesium [Mass/Vol] 1.9 mg/dL Normal 1.6-2.6 [facility] Comment on above: Performed By: #### C P, CDP, MG, TSHX ####[facility] [id number] [place] [address] lab Director: Demetrice Han MD#### ANYA, VD25 ####[address] [place] [address] lab Director: Jorge Luis Escamlila MD TSH w/reflex to FT4on 2023 Thyroid Stim. Horm. 1.41 uIU/mL Normal 0.30-5.00 [facility] Comment on above: Performed By: #### C P, CDP, MG, TSHX ####[facility] [id number] [place], [place] [phone])[phone] Director: Demetrice Han MD#### LIPR, VD25 ####[address] [place] [address] Lab Director: Jorge Luis Escamilla MD XR CHEST (2 VW)on 07-21-2023 XR CHEST (2 VW) EXAM: CHEST 2 VIEWS HISTORY: Coronary artery disease involving [place] heart without angina pectoris, unspecified vessel or lesion type TECHNIQUE: PA and lateral views chest. COMPARISON: 10/03/2021. FINDINGS: The lungs are clear. There is no focal lung consolidation, pleural effusion or pneumothorax. Pulmonary vasculature is within normal limits. There is aortic atherosclerosis. There are median sternotomy changes with prosthetic mitral valve and left pectoral dual-chamber cardiac pacemaker device. IMPRESSION: 1. No acute cardiopulmonary disease. 2. Prosthetic mitral valve and normal heart size with cardiac pacemaker. Interpreted by: Heath May MD Signed by: Heath May MD 07/21/23 Final result Normal [facility] ECHOCARDIOGRAM COMPLETEon ECHOCARDIOGRAM COMPLETE Patient Info Name: LUCIANA MEDINA Age: 77 years : 1945 Gender: Female Ht: 160 cm Wt: 59 kg BSA: 1.63 m2 HR: 91 bpm BP: 126 / 72 mmHg Technical Quality: Fair Exam Date: 06/12/2023 11:59 AM Patient Status: Outpatient Supervisor [employer]: Lashonda Livingston RN, RCS Exam Type: ECHOCARDIOGRAM COMPLETE Study Info Indications - Evaluate LV function Referring Physician: Paty Brown MD; [id number] BMI: 23.03 kg/m2 Summary 1. Normal LV size, low normal systolic function. Septal wall motion consistent with previous open heart procedure otherwise normal wall thickening. LVEF 51%. 2. Normal RV size and function. Device wire noted in right heart. 3. Trileaflet aortic valve, mild leaflet thickening. No stenosis. Trivial AI. 4. 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 Mean gradient of 8 mmHg at a heart rate of 76 bpm. No insufficiency. The valve appears to be high in the left atrium above the [place] annulus. The [place] annulus remains and is heavily calcified. . 5. Overall mitral stenosis appears stable from previous echo report reviewed in Care Everywhere from 07/22. 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 Prior Interventions Pacemaker: Yes CABG: Yes Valve Surgery: Yes Type of Valve Surgery: MV Bioprosthetic Replacement Date of CAB06/12/2012 Most Recent Valve Surgery: 06/12/2012 Replacement Valve Size: 25mm bioprosthetic Hernandez porcine Procedure(s): Complete two-dimensional, color flow and Doppler transthoracic echocardiogram is performed. Left Ventricle Normal LV size, low normal systolic function. Septal wall motion consistent with previous open heart procedure otherwise normal wall thickening. LVEF 51%. Left ventricular chamber dimension is normal. Normal left ventricular mass. Left ventricular segmental wall motion is normal. The left ventricular diastolic function is indeterminate. Right Ventricle Normal RV size and function. Device wire noted in right heart. Left Atria Left atrial chamber is normal with a left atrial volume index of 26 ml/m2 by BP MOD. Right Atria Right atrial chamber dimension is normal. Pericardium/Pleural There is no pericardial effusion. Inferior Vena Cava Normal inferior vena cava with >50% collapse upon inspiration consistent with normal right atrial pressure. Aorta The aortic measurements are indexed to age and body surface area. The aortic root is normal measuring 2.6 cm with an index of 1.6 cm/m2. The proximal ascending aorta is normal measuring 3.0 cm with an index of 1.8 cm/m2. Wall Motion Scoring Wall Motion Scoring Index: 1.00 Left Ventricular Outflow Tract Name Value Normal LVOT 2D LVOT Diameter 1.9 cm LVOT Doppler LVOT Peak Velocity 1.0 m/s LVOT Peak Gradient 4 mmHg LVOT Mean Gradient 2 mmHg LVOT VTI 20 cm LVOT VTI/AV VTI Ratio 0.8 LVOT Stroke Volume 56 ml LVOT Stroke Index 34.22 ml/m2 Pulmonic Valve Name Value Normal PV 2D RVOT Diameter (2D) 2.8 cm 1.7-2.7 RVOT Doppler RVOT Peak Velocity 48 cm/s RVOT Peak Gradient 1 mmHg RVOT Mean Gradient 0 mmHg RVOT VTI 8 cm PV Doppler PV Peak Velocity 0.59 m/s PV Peak Gradient 1 mmHg PV Mean Gradient 1 mmHg PV VTI 8 cm PV Area (Cont Eq VTI) 5.5 cm2 PV Area Index (Cont Eq VTI) 3.37 cm2/m2 PV Area (Cont Eq Stefan) 4.9 cm2 PV Area Index (Cont Eq Stefan) 3.01 cm2/m2 Mitral Valve Name Value Normal MV Doppler MV Peak Velocity 2.11 m/s MV Peak Gradient 20 mmHg MV Mean Gradient 8 mmHg MV VTI 56 cm MV [place] 597 cm/s2 MV PHT 95 ms MV Area (PHT) 2.3 cm2 4.0-5.0 MV Area (Cont Eq VTI) 1.0 cm2 MV Area Index (Cont Eq VTI) 0.61 cm2/m2 MV DVI 2.72 MV Diastolic Function (more content not included)... Normal [facility] Comment on above: Order Comment: PT/FA X REQUESTING [facility] US DOPPLER CAROTIDon 06-12- 023 US DOPPLER CAROTID Patient Info Name: LUCIANA MEDINA Age: 77 years : 1945 Gender: Female Exam Date: 06/12/2023 10:52 AM Patient Status: Outpatient Tafe Lecturer: Tete Wright RVT Referring Physician: PATY BROWN ; Indications - BRUIT R09.89 - Other specified symptoms and signs involving the circulatory and respiratory systems Procedure Description 41816 Duplex examination using B-mode, color and spectral Doppler of extracranial arteries; complete bilateral study. NASCET criteria is used when performing imaging correlation with carotid duplex interpretation. Conclusions * Right. * Less than 50% stenosis in the right internal carotid artery. Due to strict lab criteria. * Percent stenosis may be underestimated due to calcific shadowing. * Right vertebral artery is patent with antegrade flow. * No evidence of hemodynamically significant stenosis in the right common carotid, external carotid and subclavian arteries. * Left. * Less than 50% stenosis in the left internal carotid artery. Due to strict lab criteria. * Left vertebral artery is patent with antegrade flow however monophasic waveform, low velocities noted. * Elevated velocity in the left external carotid artery consistent with hemodynamically significant stenosis. * No evidence of hemodynamically significant stenosis in the left common carotid and subclavian arteries. * Percent stenosis may be underestimated due to calcific shadowing. Recommendations * Based on this study, advanced carotid imaging does not appear to be indicated. Clinical correlation advised. Measurements Name Value Right PSV Right Prox CCA PSV 65 cm/s Right Mid CCA PSV 67 cm/s Right Distal CCA PSV 62 cm/s Right Prox ICA PSV 174 cm/s Right Mid ICA PSV 111 cm/s Right Distal ICA PSV 86 cm/s Right ECA PSV 126 cm/s Right Vert PSV 106 cm/s Right Prox SCA PSV 149 cm/s Rt ICA/CCA Ratio 2.8 Measurements Name Value Right EDV Right Prox CCA EDV 17 cm/s Right Mid CCA EDV 18 cm/s Right Distal CCA EDV 18 cm/s Right Prox ICA EDV 53 cm/s Right Mid ICA EDV 28 cm/s Right Distal ICA EDV 31 cm/s Right ECA EDV 14 cm/s Right Vert EDV 38 cm/s Right Prox SCA EDV 0 cm/s Measurements Name Value Left PSV Left Prox CCA PSV 69 cm/s Left Mid CCA PSV 85 cm/s Left Distal CCA PSV 58 cm/s Left Prox ICA PSV 168 cm/s Left Mid ICA PSV 92 cm/s Left Distal ICA PSV 94 cm/s Left ECA PSV 301 cm/s Left Vert PSV 22 cm/s Left Prox SCA PSV 135 cm/s Lt ICA/CCA Ratio 2.9 Measurements Name Value Left EDV Left Prox CCA EDV 20 cm/s Left Mid CCA EDV 25 cm/s Left Distal CCA EDV 22 cm/s Left Prox ICA EDV 62 cm/s Left Mid ICA EDV 25 cm/s Left Distal ICA EDV 34 cm/s Left ECA EDV 30 cm/s Left Vert EDV 4 cm/s Left Prox SCA EDV 0 cm/s Right Findings * No plaque noted in the right common carotid artery. * Calcific plaque noted in the right internal carotid artery. * Calcific plaque noted in the right external carotid artery. Left Findings * No plaque noted in the left common carotid artery. * Calcific plaque noted in the left internal carotid artery. * Calcific plaque noted in the left external carotid artery. Risk Factors Patient has a history of CAD and tobacco use-previous. . Report Signatures Finalized by Pamela Diaz MD on 06/12/2023 03:10 PM Normal [facility] Comment on above: Order Comment: PT/FA X REQUESTING [facility] US DOPPLER CAROTID Patient Info Name: LUCIANA MEDINA Age: 77 years : 1945 Gender: Female Exam Date: 06/12/2023 10:52 AM Patient Status: Outpatient Tafe Lecturer: Tete Wright RVT Referring Physician: PATY BROWN ; Indications - BRUIT R09.89 - Other specified symptoms and signs involving the circulatory and respiratory systems Procedure Description [id number] Duplex examination using B-mode, color and spectral Doppler of extracranial arteries; complete bilateral study. NASCET criteria is used when performing imaging correlation with carotid duplex interpretation. Conclusions * Right. * Less than 50% stenosis in the right internal carotid artery. Due to strict lab criteria. * Percent stenosis may be underestimated due to calcific shadowing. * Right vertebral artery is patent with antegrade flow. * No evidence of hemodynamically significant stenosis in the right common carotid, external carotid and subclavian arteries. * Left. * Less than 50% stenosis in the left internal carotid artery. Due to strict lab criteria. * Left vertebral artery is patent with antegrade flow however monophasic waveform, low velocities noted. * Elevated velocity in the left external carotid artery consistent with hemodynamically significant stenosis. * No evidence of hemodynamically significant stenosis in the left common carotid and subclavian arteries. * Percent stenosis may be underestimated due to calcific shadowing. Recommendations * Based on this study, advanced carotid imaging does not appear to be indicated. Clinical correlation advised. Measurements Name Value Right PSV Right Prox CCA PSV 65 cm/s Right Mid CCA PSV 67 cm/s Right Distal CCA PSV 62 cm/s Right Prox ICA PSV 174 cm/s Right Mid ICA PSV 111 cm/s Right Distal ICA PSV 86 cm/s Right ECA PSV 126 cm/s Right Vert PSV 106 cm/s Right Prox SCA PSV 149 cm/s Rt ICA/CCA Ratio 2.8 Measurements Name Value Right EDV Right Prox CCA EDV 17 cm/s Right Mid CCA EDV 18 cm/s Right Distal CCA EDV 18 cm/s Right Prox ICA EDV 53 cm/s Right Mid ICA EDV 28 cm/s Right Distal ICA EDV 31 cm/s Right ECA EDV 14 cm/s Right Vert EDV 38 cm/s Right Prox SCA EDV 0 cm/s Measurements Name Value Left PSV Left Prox CCA PSV 69 cm/s Left Mid CCA PSV 85 cm/s Left Distal CCA PSV 58 cm/s Left Prox ICA PSV 168 cm/s Left Mid ICA PSV 92 cm/s Left Distal ICA PSV 94 cm/s Left ECA PSV 301 cm/s Left Vert PSV 22 cm/s Left Prox SCA PSV 135 cm/s Lt ICA/CCA Ratio 2.9 Measurements Name Value Left EDV Left Prox CCA EDV 20 cm/s Left Mid CCA EDV 25 cm/s Left Distal CCA EDV 22 cm/s Left Prox ICA EDV 62 cm/s Left Mid ICA EDV 25 cm/s Left Distal ICA EDV 34 cm/s Left ECA EDV 30 cm/s Left Vert EDV 4 cm/s Left Prox SCA EDV 0 cm/s Right Findings * No plaque noted in the right common carotid artery. * Calcific plaque noted in the right internal carotid artery. * Calcific plaque noted in the right external carotid artery. Left Findings * No plaque noted in the left common carotid artery. * Calcific plaque noted in the left internal carotid artery. * Calcific plaque noted in the left external carotid artery. Risk Factors Patient has a history of CAD and tobacco use-previous. . Report Signatures Finalized by Pamela Diaz MD on 06/12/2023 03:10 PM Dictated by: PAMELA DIAZ on FriJun 12, 2023 3:13:19 PM EST Transcribed by: PAMELA DIAZ on FriJun 12, 2023 3:13:19 PM EST Finalized by: PAMELA DIAZ on FriJun 12, 2023 3:13:19 PM EST Normal [facility] Comment on above: Order Comment: PT/FA X REQUESTING [facility] CBC with Auto Differentialon 07-16-2022 Absolute Eos # 0.10 [facility] Absolute Lymph # 2.10 [facility] Absolute Craig # 0.80 [facility] Basophils (Bld) [#/Vol] 0.00 10*3/uL [facility] Basophils/100 WBC (Bld) 0 % 0 - 2 % [facility] Differential Type YES [facility] Eosinophils/100 WBC (Bld) 2 % 0 - 5 % [facility] Hematocrit (Bld) [Volume fraction] 40.6 % 36 - 46 % [facility] Hemoglobin (Bld) [Mass/Vol] 13.4 g/dL 12.0 - 16.0 g/dL [facility] Interpretation and review of laboratory results Abnormal [facility] Lymphocytes/100 WBC (Bld) 26 % 15 - 40 % [facility] MCH (RBC) [Entitic mass] 32.5 pg 26 - 34 pg [facility] MCHC (RBC) [Mass/Vol] 33.0 g/dL 31 - 37 g/dL [facility] MCV (RBC) [Entitic vol] 98.4 fL 80 - 100 fL [facility] Monocytes/100 WBC (Bld) 10 % High 4 - 8 % [facility] Platelet distribution width (Bld) [Ratio] 13.5 % 12.1 - 15.2 % [facility] Platelets (Bld) [#/Vol] 242 10*3/uL [facility] RBC (Bld) [#/Vol] 4.13 10*6/uL 4.0 - 5.2 m/uL [facility] Segmented neutrophils/100 WBC (Bld) 62 % 47 - 75 % [facility] Segs Absolute 5.10 [facility] WBC (Bld) [#/Vol] 8.3 10*3/uL [facility] Comprehensive Metabolic Pane janeen 07-16-2022 Albumin [Mass/Vol] 4 g/dL 3.5 - 5.2 g/dL [facility] ALP (Bld) [Catalytic activity/Vol] 58 U/L 35 - 104 U/L [facility] ALT [Catalytic activity/Vol] 12 U/L 5 - 33 U/L [facility] Anion gap [Moles/Vol] 10 mmol/L 9 - 17 mmol/L [facility] AST [Catalytic activity/Vol] 20 U/L NINF - 32 U/L [facility] Bilirubin [Mass/Vol] 0.3 mg/dL 0.3 - 1 .2 mg/dL [facility] Calcium [Mass/Vol] 9.4 mg/dL 8.6 - 10. 4 mg/dL [facility] Chloride [Moles/Vol] 107 mmol/L 98 - 10 7 mmol/L [facility] CO2 [Moles/Vol] 23 mmol/L 20 - 31 mmol/L [facility] Creatinine [Mass/Vol] 0.84 mg/dL 0.50 - 0.90 mg/dL [facility] GFR/1.73 sq M.predicted MDRD (S/P/Bld) [Vol rate/Area] - PINF [facility] Comment on above: Effective Apr 01, 2022 These results are not intended for use in patients <18 years of age. eGFR results are calculated without a race factor using the 2020 CKD-EPI equation. Careful clinical correlation is recommended, particularly when comparing to results calculated using previous equations. The CKD-EPI equation is less accurate in patients with extremes of muscle mass, extra-renal metabolism of creatine, excessive creatine ingestion, or following therapy that affects renal tubular secretion. Glucose [Mass/Vol] 103 mg/dL High 70 - 99 mg/dL [facility] Interpretation and review of laboratory results Abnormal [facility] [employer] Potassium [Moles/Vol] 4.3 mmol/L 3.7 - 5.3 mmol/L [facility] Protein [Mass/Vol] 7.3 g/dL 6.4 - 8.3 g/dL [facility] Sodium [Moles/Vol] 140 mmol/L 135 - 144 mmol/L [facility] [employer] Urea nitrogen (BldV) [Mass/Vol] 25 mg/dL High 8 - 23 mg/dL [facility] Urea nitrogen/Creatinine (Bld) [Mass ratio] 30 High 9 - 20 [facility] Lipid Panelon 07-16-2022 Cholesterol [Mass/Vol] 139 mg/dL NINF - 200 mg/dL [facility] Comment on above: Cholesterol Guidelines: <200 Desirable 200-240 Borderline >240 Undesirable Cholesterol in HDL [Mass/Vol] 44 mg/dL 40 - PINF mg/dL [facility] Comment on above: HDL Guidelines: <40 Undesirable 40-59 Borderline >59 Desirable Cholesterol in LDL [Mass/Vol] 62 mg/dL 0 - 130 mg/dL [facility] Comment on above: LDL Guidelines: <100 Desirable 100-129 Near to/above Desirable 130-159 Borderline >159 Undesirable Direct (measured) LDL and calculated LDL are not interchangeable tests. Cholesterol.total/Chol esterol in HDL [Mass ratio] 3.2 {ratio} NINF - 5 [facility] Interpretation and review of laboratory results Abnormal [facility] Triglyceride [Mass/Vol] 166 mg/dL High NINF - 150 mg/dL [facility] Comment on above: Triglyceride Guidelines: <150 Desirable 150-199 Borderline 200-499 High >499 Very high Based on AHA Guidelines for fasting triglyceride, March 2012. [facility] Magnesiumon 07-16-2022 Magnesium [Mass/Vol] 1.8 mg/dL 1.6 - 2 .6 mg/dL [facility] No Panel Informationon 07-16 [facility] Patient Fasting?on 3 Patient Fasting? yes [facility] TSH with Reflexon 07-16-2022 TSH Qn 2.07 m[IU]/L [facility] CBC Auto Differentialon Absolute Eos # 0.30 [facility] th Absolute Lymph # 1.90 [facility] Absolute Craig # 0.70 [facility] Basophils (Bld) [#/Vol] 0.00 10*3/uL [facility] Basophils/100 WBC (Bld) 0 % 0 - 2 % [facility] Differential Type YES [facility] ealth Eosinophils/100 WBC (Bld) 2 % 0 - 5 % [facility] Hematocrit (Bld) [Volume fraction] 42.1 % 36 - 46 % [facility] Hemoglobin.gastrointes tinal spec 1 Ql (Stl) 13.8 g/dL 12.0 - 16.0 g/dL [facility] Interpretation and review of laboratory results Abnormal [facility] Lymphocytes/100 WBC (Bld) 17 % 15 - 40 % [facility] MCH (RBC) [Entitic mass] 31.8 pg 26 - 34 pg [facility] MCHC (RBC) [Mass/Vol] 32.8 g/dL 31 - 37 g/dL [facility] MCV (RBC) [Entitic vol] 97.0 fL 80 - 100 fL [facility] Monocytes/100 WBC (Bld) 6 % 4 - 8 % [facility] Platelet distribution width (Bld) [Ratio] 13.3 % 12.1 - 15.2 % [facility] Platelets (Bld) [#/Vol] 290 10*3/uL [facility] RBC (Bld) [#/Vol] 4.34 10*6/uL 4.0 - 5.2 m/uL [facility] Segmented neutrophils/100 WBC (Bld) 75 % 47 - 75 % [facility] Segs Absolute 8.50 High [facility] WBC (Bld) [#/Vol] 11.4 10*3/uL High [facility] Comprehensive Metabolic Pane janeen 10-03-2021 Albumin [Mass/Vol] 4.5 g/dL 3.5 - 5.2 g/dL [facility] ALP (Bld) [Catalytic activity/Vol] 51 U/L 35 - 104 U/L [facility] ALT [Catalytic activity/Vol] 12 U/L 5 - 33 U/L [facility] Anion gap [Moles/Vol] 12 mmol/L 9 - 17 mmol/L [facility] AST [Catalytic activity/Vol] 19 U/L <32 [facility] Bilirubin [Mass/Vol] 0.34 mg/dL 0.30 - 1.20 mg/dL [facility] Calcium [Mass/Vol] 9.4 mg/dL 8.6 - 10. 4 mg/dL [facility] Chloride [Moles/Vol] 105 mmol/L 98 - 10 7 mmol/L [facility] CO2 [Moles/Vol] 25 mmol/L 20 - 31 mmol/L [facility] Creatinine [Mass/Vol] 0.85 mg/dL 0.50 - 0.90 mg/dL [facility] Free PSA/Total PSA [Mass fraction] 7.5 g/dL 6.4 - 8.3 g/dL [facility] GFR >60 >60 mL/min [facility] GFR Non- >60 >60 mL/min [facility] GFR/1.73 sq M.predicted MDRD (S/P/Bld) [Vol rate/Area] [facility] Comment on above: Average GFR for 70 o r more years old: 75 mL/min/1.73sq m Chronic Kidney Disease: <60 mL/min/1.73sq m Kidney failure: <15 mL/min/1.73sq m eGFR calculated using average adult body mass. Additional eGFR calculator available at: http://www.Clearleap/multiple_crcl_2012.htm Glucose [Mass/Vol] 102 mg/dL High 70 - 99 mg/dL [facility] Interpretation and review of laboratory results Abnormal [facility] Potassium [Moles/Vol] 4.3 mmol/L 3.7 - 5.3 mmol/L [facility] Sodium [Moles/Vol] 142 mmol/L 135 - 144 mmol/L [facility] Urea nitrogen (BldV) [Mass/Vol] 24 mg/dL High 8 - 23 mg/dL [facility] Urea nitrogen/Creatinine (Bld) [Mass ratio] 28 High [facility] Lipid Panelon 10-03-2021 Cholesterol [Mass/Vol] 163 mg/dL <200 [facility] Comment on above: Cholesterol Guidelines: <200 Desirable 200-240 Borderline >240 Undesirable Cholesterol in HDL [Mass/Vol] 48 mg/dL >40 [facility] Comment on above: HDL Guidelines: <40 Undesirable 40-59 Borderline >59 Desirable Cholesterol in LDL [Mass/Vol] 76 mg/dL 0 - 130 mg/dL [facility] Comment on above: LDL Guidelines: <100 Desirable 100-129 Near to/above Desirable 130-159 Borderline >159 Undesirable Direct (measured) LDL and calculated LDL are not interchangeable tests. Cholesterol.total/Chol esterol in HDL [Mass ratio] 3.4 {ratio} <5 [facility] Interpretation and review of laboratory results Abnormal [facility] Triglyceride [Mass/Vol] 195 mg/dL High <150 [facility] Comment on above: Triglyceride Guidelines: <150 Desirable 150-199 Borderline 200-499 High >499 Very high Based on AHA Guidelines for fasting triglyceride, March 2012. [facility] Magnesiumon 10-03-2021 Magnesium [Mass/Vol] 1.8 mg/dL 1.6 - 2 .6 mg/dL [facility] No Panel Informationon 10-03 [facility] Patient Fasting?on 2 Patient Fasting? YES [facility] TSH with Reflexon 10-03-2021 TSH Qn 1.80 m[IU]/L [facility] Vitamin D 25 Hydroxyon 10-03 Vit D, 25-Hydroxy 83.6 ng/mL >29.9 [facility] ealt Comment on above: Reference Range: Vitamin D status Range Deficiency <20 ng/mL Mild Deficiency 20-30 ng/mL Sufficiency 30-100 ng/mL Toxicity >100 ng/mL [facility] XR CHEST (2 VW)on 10-03-2021 1. Mild pulmonary hyperinflation without acute cardiopulmonary disease. 2. 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 [facility] CONSOL[facility] EXAM: CHEST 2 VIEWS HISTORY: Reason for exam:->cad TECHNIQUE: PA and lateral views chest. COMPARISON: 03/09/2020. FINDINGS: The lungs are mildly hyperinflated. There is no focal lung consolidation, pleural effusion or pneumothorax. Pulmonary vasculature is within normal limits. 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 [facility] Heath May MD - 10/03/2021 EXAM: CHEST 2 VIEWS HISTORY: Reason for exam:->cad TECHNIQUE: PA and lateral views chest. COMPARISON: 03/09/2020. FINDINGS: The lungs are mildly hyperinflated. There is no focal lung consolidation, pleural effusion or pneumothorax. Pulmonary vasculature is within normal limits. 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 IMPRESSION: 1. Mild pulmonary hyperinflation without acute cardiopulmonary disease. 2. 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 [employer] Work Phone: Radiology Study observation (narrative) [employer] Phone: XR CHEST (2 VW)Ordered By: Lamonte May on 10-03-2021 [employer] Phone: CBC Auto DifferentialOrdered By: Pavel Brown on 03-12-2021 [employer] # 0.30 [employer] [facility] Work Phone: Absolute Immature Granulocyte NOT REPORTED [employer] Work Phone: Absolute Lymph # 2.10 [email or web address] Work Phone: Absolute Craig # 0.60 [email or web address] Work Phone: Basophils (Bld) [#/Vol] 0.00 10*3/uL [employer] Work Phone: Basophils/100 WBC (Bld) 0 % 0 - 2 % [employer] Work Phone: Differential Type YES [facility] Work Phone: Eosinophils/100 WBC (Bld) 4 % 0 - 5 % [employer] Phone: Hematocrit (Bld) [Volume fraction] 41.2 % 36 - 46 % [employer] Phone: Hemoglobin.gastrointes tinal spec 1 Ql (Stl) 13.6 g/dL 12.0 - 16.0 g/dL [employer] Phone: Immature Granulocytes NOT REPORTED 0 % [employer] Phone: Interpretation and review of laboratory results Abnormal [employer] Phone: Lymphocytes/100 WBC (Bld) 31 % 15 - 40 % [employer] Phone: MCH (RBC) [Entitic mass] 32.2 pg 26 - 34 pg [employer] Phone: MCHC (RBC) [Mass/Vol] 33.1 g/dL 31 - 37 g/dL [employer] Phone: MCV (RBC) [Entitic vol] 97.3 fL 80 - 100 fL [employer] Phone: Monocytes/100 WBC (Bld) 9 % High 4 - 8 % [employer] Phone: NRBC Automated NOT REPORTED per 100 WBC [employer] [facility] Work Phone: Platelet distribution width (Bld) [Ratio] 13.2 % 12.1 - 15.2 % [employer] Phone: Platelet Estimate NOT REPORTED [employer] Phone: Platelet mean volume (Bld) [Entitic vol] NOT REPORTED 6.0 - 12.0 fL [employer] Phone: Platelets (Bld) [#/Vol] 254 10*3/uL [employer] Phone: RBC (Bld) [#/Vol] 4.24 10*6/uL 4.0 - 5.2 m/uL [facility] [employer] Work Phone: RBC (Bld) [#/Vol] NOT REPORTED [facility] Phone: Segmented neutrophils/100 WBC (Bld) 56 % 47 - 75 % [facility] Phone: Segs Absolute 3.90 [facility] HospitalLoudie [employer] Work Phone: WBC (Bld) [#/Vol] 7.0 10*3/uL [facility] Work Phone: WBC (Bld) [#/Vol] NOT REPORTED [facility] Phone: [facility] Work Phone: Comprehensive Metabolic Pane lOrdered By: Pavel Brown on 03-12-2021 Albumin [Mass/Vol] 4 g/dL 3.5 - 5.2 g/dL [facility] [employer] Work Phone: Albumin/Globulin Ratio NOT REPORTED [facility] Phone: ALP (Bld) [Catalytic activity/Vol] 50 U/L 35 - 104 U/L [facility] Phone: ALT [Catalytic activity/Vol] 14 U/L 5 - 33 U/L [facility] Phone: Anion gap [Moles/Vol] 11 mmol/L 9 - 17 mmol/L [facility] Phone: AST [Catalytic activity/Vol] 22 U/L <32 [facility] Phone: Bilirubin [Mass/Vol] 0.32 mg/dL 0.30 - 1.20 mg/dL [facility] Phone: Calcium [Mass/Vol] 9.6 mg/dL 8.6 - 10. 4 mg/dL [facility] Phone: Chloride [Moles/Vol] 105 mmol/L 98 - 10 7 mmol/L [facility] Phone: CO2 [Moles/Vol] 23 mmol/L 20 - 31 mmol/L [employer] Phone: Creatinine [Mass/Vol] 0.88 mg/dL 0.50 - 0.90 mg/dL [employer] Phone: Free PSA/Total PSA [Mass fraction] 7.2 g/dL 6.4 - 8.3 g/dL [employer] Phone: GFR >60 >60 mL/min [employer] Phone: GFR Non- >60 >60 mL/min [employer] Phone: GFR/1.73 sq M.predicted MDRD (S/P/Bld) [Vol rate/Area] [employer] Phone: Comment on above: Average GFR for 70 o r more years old: 75 mL/min/1.73sq m Chronic Kidney Disease: <60 mL/min/1.73sq m Kidney failure: <15 mL/min/1.73sq m eGFR calculated using average adult body mass. Additional eGFR calculator available at: http://www.Clearleap/multiple_crcl_2012.htm GFR/1.73 sq M.predicted MDRD (S/P/Bld) [Vol rate/Area] NOT REPORTED [facility] Phone: Glucose [Mass/Vol] 97 mg/dL 70 - 99 mg/dL [facility] [employer] Phone: Interpretation and review of laboratory results Abnormal [facility] Phone: Potassium [Moles/Vol] 3.9 mmol/L 3.7 - 5.3 mmol/L [employer] Phone: Sodium [Moles/Vol] 139 mmol/L 135 - 144 mmol/L [facility] Phone: Urea nitrogen (BldV) [Mass/Vol] 23 mg/dL 8 - 23 mg/dL [employer] Phone: Urea nitrogen/Creatinine (Bld) [Mass ratio] 26 High [employer] Phone: Lipid PanelOrdered By: Pavel Brown on 03-12-2021 Cholesterol [Mass/Vol] 134 mg/dL <200 [employer] Phone: Comment on above: Cholesterol Guidelines: <200 Desirable 200-240 Borderline >240 Undesirable Cholesterol in HDL [Mass/Vol] 45 mg/dL >40 [employer] Phone: Comment on above: HDL Guidelines: <40 Undesirable 40-59 Borderline >59 Desirable Cholesterol in LDL [Mass/Vol] 46 mg/dL 0 - 130 mg/dL [employer] Phone: Comment on above: LDL Guidelines: <100 Desirable 100-129 Near to/above Desirable 130-159 Borderline >159 Undesirable Direct (measured) LDL and calculated LDL are not interchangeable tests. Cholesterol in VLDL [Mass/Vol] NOT REPORTED High 1 - 30 mg/dL [employer] Phone: Cholesterol.total/Chol esterol in HDL [Mass ratio] 3 {ratio} <5 [employer] Phone: Interpretation and review of laboratory results Abnormal [employer] Phone: Triglyceride [Mass/Vol] 215 mg/dL High <150 [employer] Phone: Comment on above: Triglyceride Guidelines: <150 Desirable 150-199 Borderline 200-499 High >499 Very high Based on AHA Guidelines for fasting triglyceride, March 2012. [employer] Phone: MagnesiumOrdered By: Pavel ervin on 03-12-2021 Magnesium [Mass/Vol] 1.8 mg/dL 1.6 - 2 .6 mg/dL [employer] Phone: No Panel InformationOrdered By: Pavel Brown on 03-12-2021 [employer] Phone: [employer] Phone: Patient Fasting?Ordered By: Pavel Brown on 03-12-2021 Patient Fasting? yes [facility] Work Phone: [employer] Phone: T3, FreeOrdered By: Pavel garner on 03-12-2021 Free T3 [Mass/Vol] 2.54 pg/mL 2.02 - 4. 43 pg/mL [employer] Phone: T4, FreeOrdered By: Pavel garner on 03-12-2021 Thyroxine, Free 1.64 ng/dL 0.93 - 1.70 ng/dL [employer] Phone: [employer] Phone: TSH with ReflexOrdered By: Svetlana Brown on 03-12-2021 TSH Qn 1.59 m[IU]/L [employer] Phone: Vitamin D 25 HydroxyOrdered By: Pavel Brown on 03-12-2021 Vit D, 25-Hydroxy 59.9 ng/mL 30.0 - 100 .0 ng/mL [employer] Phone: Comment on above: Reference Range: Vitamin D status Range Deficiency <20 ng/mL Mild Deficiency 20-30 ng/mL Sufficiency 30-100 ng/mL Toxicity >100 ng/mL MG MAMM SCREEN 3D HUA CADon 02-09-2021 MG MAMM SCREEN 3D HUA CAD Patient: LUCIANA MEDINA Exam Date: 02/09/2021 : 1945 Gender:F Ordering : DR JAYRO DE LEON . Admission #: [id number] Family : Order #: [id number] CLICK HERE TO VIEW EXAM RADIOLOGY REPORT PROCEDURE: MAMMOGRAM SCREENING 3D BILATERAL CAD COMPARISON: MG MAMM SCREEN HUA W CAD, 12/15/2017. MG MAMM SCREEN HUA W CAD, 03/05/2019. INDICATIONS: Screening mammography Calculator Name NCI Breast Cancer Risk Assessment Tool 5 Year Breast Cancer Risk 1.10% Lifetime Breast Cancer Risk 2.20% Personal Breast Cancer No Personal Ovarian Cancer No Treatments None Family Cancers None LOCATION: [facility] BREAST COMPOSITION: Almost entirely fatty. FINDINGS: DIAGNOSTIC CATEGORY 1--NEGATIVE NO CHANGE FROM COMPARISON ASSESSMENT. Scattered benign-appearing calcifications are present. Scattered benign-appearing lymph nodes are present. RIGHT BREAST: No significant suspicious finding. LEFT BREAST: No significant suspicious finding. 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 PLEASE NOTE: A NORMAL MAMMOGRAM DOES NOT EXCLUDE THE POSSIBILITY OF BREAST CANCER. A CLINICALLY SUSPICIOUS PALPABLE LUMP SHOULD BE BIOPSIED. Dictated by: Demetrice Camacho MD on 02/09/2021 at 10:22 Approved by: Demetrice Camacho MD on 02/09/2021 at 10:23 Normal [facility] CBC AUTO DIFFon 08-30-2020 BASO # 0.1 103/ul Normal 0.0-0.1 [facility] Comment on above: Performed By: #### C BC #### [facility] [address] [place], [place] [id number] Tiana Radha Basophils/100 WBC (Bld) 0.7 % Normal 0.2-2.0 [facility] Comment on above: Performed By: #### C BC #### [facility] [address] [place], [place] [id number] Tiana Radha EO # 0.6 103/ul Normal 0.0-0.7 [facility] Comment on above: Performed By: #### C BC #### [facility] [address] [place], [place] [id number] Tiana Radha Eosinophils/100 WBC (Bld) 7.3 % Critically high 0.9-7.0 [facility] Comment on above: Performed By: #### C BC #### [facility] [address] [place], [place] [id number] Tiana Radha Erythrocyte distribution width (RBC) [Ratio] 13.8 % Normal 11.0-15.0 [facility] Comment on above: Performed By: #### C BC #### [facility] [address] [place], [place] [id number] Tiana Radha Hematocrit (Bld) [Volume fraction] 45.8 % Normal 36.0-48.0 [facility] Comment on above: Performed By: #### C BC #### [facility] [address] [place] [address] Tianael Garcia Hemoglobin (Bld) [Mass/Vol] 14.5 g/dL Normal 12.0-16.0 [facility] Comment on above: Performed By: #### C BC #### [facility] [address] [place] [address] Tianael Garcia IG # 0.02 10e3/ul Normal 0.00-0.03 [facility] Comment on above: Performed By: #### C BC #### [facility] [address] [place] [address] Tiana Radha IG % 0.2 % Normal 0.0-0.5 [facility] Comment on above: Performed By: #### C BC #### [facility] [address] [place] [address] Tiana Radha LYMPH # 2.2 103/ul Normal 1.2-3.8 [facility] Comment on above: Performed By: #### C BC #### [facility] [address] [place] [address] Tiana Garcia Lymphocytes/100 WBC (Bld) 27.4 % Normal 20.5-60.0 [facility] Comment on above: Performed By: #### C BC #### [facility] [address] [place] [address] Tiana Garcai MANUAL DIFF REQ NO Normal [facility] Comment on above: Performed By: #### C BC #### [facility] [address] [place] [address] Tianael Garcia MCH (RBC) [Entitic mass] 30.7 pg Normal 26.7-34.0 [facility] Comment on above: Performed By: #### C BC #### [facility] [address] [place] [address] Tianael Garcia MCHC (RBC) [Mass/Vol] 31.7 g/dL Normal 29.9-35.2 [facility] Comment on above: Performed By: #### C BC #### [facility] [address] [place] [address] Tianael Besten MCV (RBC) [Entitic vol] 97.0 fL Normal 81.0-99.0 [facility] Comment on above: Performed By: #### C BC #### [facility] [address] [place], [place] [id number] Tiana Garcia MONO # 0.7 103/ul Normal 0.3-0.8 [facility] Comment on above: Performed By: #### C BC #### [facility] [address] [place], [place] [id number] Tiana Garcia Monocytes/100 WBC (Bld) 8.4 % Normal 1.7-12.0 [facility] Comment on above: Performed By: #### C BC #### [facility] [address] [place] [address] Tiana Garcia NEUT # 4.5 103/ul Normal 1.4-6.5 [facility] Comment on above: Performed By: #### C BC #### [facility] [address] [place] [address] Tiana Garcia Neutrophils/100 WBC (Bld) 56.0 % Normal 43.0-75.0 [facility] Comment on above: Performed By: #### C BC #### [facility] [address] [place], [place] [id number] Tiana Garcia Platelet mean volume (Bld) [Entitic vol] 9.4 fL Critically low 9.5-13.5 [facility] Comment on above: Performed By: #### C BC #### [facility] [address] [place] [address] Tiana Radha PLT 260 103/ul Normal 150-450 [facility] Comment on above: Performed By: #### C BC #### [facility] [address] [place] [address] Tiana Radha RBC 4.72 106/ul Normal 4.20-5.40 [facility] Comment on above: Performed By: #### C BC #### [facility] [address] [place] [address] Tiana Radha WBC 8.1 103/ul Normal 4.0-11.0 [facility] Comment on above: Performed By: #### C BC #### [facility] [address] [place], [place] [address] Tiana Garcia ECHOCARDIO M/2D COMPLETEon 0 08-30-2020 ECHOCARDIO M/2D COMPLETE Patient: LUCIANA MEDINA Exam Date: 08/30/2020 : 1945 Gender:F Ordering : PAVEL CORTESMELISSA Admission #: [id number] Family : DR JAYRO DE LEON . Order #: [id number] CLICK HERE TO VIEW EXAM ECHOCARDIOGRAM REPORT PROCEDURE: CARDIO PULMONARY ECHOCARDIO M/2D COMP INDICATIONS: Shortness of breath, CAD, MV replacement COMPARISON: None. DESCRIPTION: COMPLETE ECHOCARDIOGRAM Real-time transthoracic echocardiography with 2D, M-mode, spectral and color flow Doppler performed. QUALITY: Technical quality was good. LEFT VENTRICLE: Normal chamber size. Borderline left ventricular hypertrophy. LV EF: Lower limits of normal left ventricular ejection fraction, (50-55%). Abnormal septal motion; this is not unusual in the post open heart patient. DIASTOLIC: Unable to assess given bioprosthetic mitral valve. ATRIAL SEPTUM: Visually appears intact. LEFT ATRIUM: Normal chamber size. RIGHT ATRIUM: Normal chamber size. Pacer wire present. RIGHT VENTRICLE: Normal chamber size. Pacer wire present. TRICUSPID VALVE: Normal mobility and thickness. No stenosis with trace regurgitation. No evidence of pulmonary hypertension. MITRAL VALVE: Bio-Prosthetic valve flows suggestive of possible stenosis. Trace mitral regurgitation. AORTIC VALVE: Normal trileaflet appearance. Thickened aortic valve. Normal leaflet mobility. No evidence of aortic valve stenosis. No aortic regurgitation. AORTIC ROOT: Normal diameter and appearance. PULMONIC VALVE: Normal thickness and mobility. No stenosis. No regurgitation. PERICARDIUM: No evidence of pericardial effusion. IVC: Collapses with inspirations. CONCLUSION: Global left ventricular systolic function is low normal limits; ejection fraction is estimated to be 50 to 55%. Borderline left ventricular hypertrophy. The right ventricle is normal in size and systolic function. Bioprosthetic mitral valve with flows suggestive of possible stenosis. No significant regurgitation. Adult Echocardiography Procedure Report Left Ventricle LVEDD (3.7 - 5.6 cm): 4.23 cm LVESD (2.2 - 4.0 cm): 3.19 cm LVIVS thickness (0.6 - 1.2 cm): 1.14 cm LVPW thickness (0.5 - 1.0 cm): 8.35 mm e': 5.59 cm/s E - e': 37.70 LVOT Area (cm2): 3.14 cm2 Peak Velocity (LVOT): 70.10 cm/s LVOT Diameter 2.00 cm Left Ventricular Ejection Fraction: 49.20 % Left Ventricular Ejection Fraction (A2C): 54 % Left Ventricular Ejection Fraction (A4C): 53 % Left Atrium LA Volume Index (2D A2C): 20.40 ml/m2 Left Atrium Systolic Dimension: 3.40 cm Left Atrium Systolic Area(A2C): 14.00 cm2 Left Atrium Systolic Area(A4C): 17.70 cm2 Left Atrium Systolic Volume(A2C): 10118 mm3 Left Atrium Systolic Volume(A4C): 09440 mm3 Mitral Valve MV E to A Ratio: 1.50 MV Mean Gradient: 8 mm[Hg] Mitral Valve A-Wave Peak Velocity: 130.00 cm/s Mitral Valve E-Wave Peak Velocity: 193.00 cm/s Deceleration Glades: 4220 mm/s2 Mitral Valve A-Wave Peak Velocity: 137.00 cm/s Mitral Valve E-Wave Peak Velocity: 211.00 cm/s Right Ventricle RV Internal Diastolic Dimension: 3.40 cm Aorta AO Root Diam: 2.40 cm Aortic Valve Peak Velocity (Antegrade Flow): 122.00 cm/s AoV Area (Peak Stefan): 1.80 cm2 Peak Velocity(Antegrade Flow): 133.00 cm/s Peak Gradient(Antegrade Flow): 7 mm[Hg] Tricuspid Valve Pulmonic Valve Peak Velocity: 82.80 cm/s Peak Gradient: 3 mm[Hg] Right Atrium Dictated by: Ariel Rodriges M.D. on 08/30/2020 at 13:41 Approved by: Ariel Rodriges M.D. on 08/30/2020 at 13:50 Normal [facility] LIPID PROFILEon 08-30-2020 CHOL-HDL RATIO NORM SEE BELOW Normal [facility] Comment on above: Result Comment: 3.3 - 4.4 LOW RISK 4.4 - 7.1 AVERAGE RISK 7.1 - 11.0 MODERATE RISK >11.0 HIGH RISK Performed By: #### T SH, CMP, MG, LIPID #### [facility] [address] [place] [address] Tiana Radha Cholesterol [Mass/Vol] 142 mg/dL Normal <=200 [facility] Comment on above: Performed By: #### T SH, CMP, MG, LIPID #### [facility] [address] [place] [address] Tiana Radha Cholesterol in HDL [Mass/Vol] 46 mg/dL Normal [facility] Comment on above: Performed By: #### T SH, CMP, MG, LIPID #### [facility] [address] [place] [address] Tiana Radha Cholesterol in LDL [Mass/Vol] 67.2 mg/dL Normal [facility] Comment on above: Performed By: #### T SH, CMP, MG, LIPID #### [facility] [address] [place] [address] Tiana Radha Cholesterol.total/Chol esterol in HDL [Mass ratio] 3.1 {ratio} Normal [facility] Comment on above: Performed By: #### T SH, CMP, MG, LIPID #### [facility] [address] [place] [id number] Tiana Radha HDL NORMAL > or = 60 mg/dl - LOW CARDIOVASCULAR RISK <40 mg/dl - HIGH CARDIOVASCULAR RISK Normal [facility] Comment on above: Performed By: #### T SH, CMP, MG, LIPID #### [facility] [address] [place] [address] Tiana Radha LDL CALC NORMAL SEE BELOW Normal [facility] Comment on above: Result Comment: <100 mg/dl OPTIMAL 100 - 129 mg/dl NEAR OR ABOVE OPTIMAL 130 - 159 mg/dl BORDERLINE HIGH 160 - 189 mg/dl HIGH >190 mg/dl VERY HIGH Performed By: #### T SH, CMP, MG, LIPID #### [facility] [address] [place] [address] Tiana Radha Triglyceride [Mass/Vol] 144 mg/dL Normal <=150 [facility] Comment on above: Performed By: #### T SH, CMP, MG, LIPID #### [facility] [address] [place] [address] Tiana Radha VLDL CALC 28.8 mg/dL Normal [facility] Comment on above: Performed By: #### T SH, CMP, MG, LIPID #### [facility] [address] [place] [id number] Tianael Garcia MAGNESIUMon 08-30-2020 Magnesium [Mass/Vol] 1.7 mg/dL Normal 1.6-2.3 [facility] Comment on above: Performed By: #### T SH, CMP, MG, LIPID #### [facility] [address] [id number] Tiana Radha PROF 14(COMP METB)on 021 Albumin [Mass/Vol] 3.8 g/dL Normal 3.5-5.0 [facility] Comment on above: Performed By: #### T SH, CMP, MG, LIPID #### [facility] [address] [place] [address] Tiana Radha Albumin/Globulin [Mass ratio] 1.0 {ratio} Normal [facility] Comment on above: Performed By: #### T SH, CMP, MG, LIPID #### [facility] [address] [place] [address] Tiana Radha ALP [Catalytic activity/Vol] 54 U/L Normal 38-126 [facility] Comment on above: Performed By: #### T SH, CMP, MG, LIPID #### [facility] [address] [place] [address] Tiana Radha ALT [Catalytic activity/Vol] 20 U/L Normal 9-52 [facility] Comment on above: Performed By: #### T SH, CMP, MG, LIPID #### [facility] [address] [place], [place] [id number] Tiana Radha Anion gap [Moles/Vol] 12.6 mmol/L Normal [facility] Comment on above: Performed By: #### T SH, CMP, MG, LIPID #### [facility] [address] [place], [place] [id number] Tiana Radha AST [Catalytic activity/Vol] 22 U/L Normal 14-36 [facility] Comment on above: Performed By: #### T SH, CMP, MG, LIPID #### [facility] [address] [address] Tiana Radha Bilirubin [Mass/Vol] 0.5 mg/dL Normal 0.2-1.3 [facility] Comment on above: Performed By: #### T SH, CMP, MG, LIPID #### [facility] [address] [address] Tiana Radha Calcium [Mass/Vol] 9.8 mg/dL Normal 8.4-10.2 [facility] Comment on above: Performed By: #### T SH, CMP, MG, LIPID #### [facility] [address] [place] [address] Tiana Radha Chloride [Moles/Vol] 105 mmol/L Normal 98-107 [facility] Comment on above: Performed By: #### T SH, CMP, MG, LIPID #### [facility] [address] [place] [address] Tiana Radha CO2 [Moles/Vol] 29.9 mmol/L Normal 22.0-30.0 [facility] Comment on above: Performed By: #### T SH, CMP, MG, LIPID #### [facility] [address] [place] [address] Tiana Radha Creatinine [Mass/Vol] 1.17 mg/dL Critically high 0.52-1.04 [facility] Comment on above: Performed By: #### T SH, CMP, MG, LIPID #### [facility] [address] [place] [address] Tiana Radha EGFR-AF INDONESIAN 55 mL/min/1.73m2 Critically low >=60 [facility] Comment on above: Performed By: #### T SH, CMP, MG, LIPID #### [facility] [address] [place] [address] Tiana Radha EGFR-NON AF INDONESIAN 45 mL/min/1.73m2 Critically low >=60 [facility] Comment on above: Performed By: #### T SH, CMP, MG, LIPID #### [facility] [address] [place] [address] Tiana Radha Globulin (S) [Mass/Vol] 3.8 g/dL Normal [facility] Comment on above: Performed By: #### T SH, CMP, MG, LIPID #### [facility] [address] [place] [address] Tiana Radha Glucose [Mass/Vol] 106 mg/dL Normal 74-106 [facility] Comment on above: Performed By: #### T SH, CMP, MG, LIPID #### [facility] [address] [place] [address] Tiana Radha Potassium [Moles/Vol] 4.5 mmol/L Normal 3.4-5.0 [facility] Comment on above: Performed By: #### T SH, CMP, MG, LIPID #### [facility] [address] [place] [address] Tiana Radha Protein [Mass/Vol] 7.6 g/dL Normal 6.1-8.2 [facility] Comment on above: Performed By: #### T SH, CMP, MG, LIPID #### [facility] [address] [place] [address] Tiana Radha Sodium [Moles/Vol] 143 mmol/L Normal 137-145 [facility] Comment on above: Performed By: #### T SH, CMP, MG, LIPID #### [facility] [address] [place] [address] Tiana Radha Urea nitrogen [Mass/Vol] 23.0 mg/dL Critically high 7.0-17.0 [facility] Comment on above: Performed By: #### T SH, CMP, MG, LIPID #### [facility] [address] [place] [address] Tiana Radha Urea nitrogen/Creatinine [Mass ratio] 19.7 mg/mg Normal [facility] Comment on above: Performed By: #### T SH, CMP, MG, LIPID #### [facility] [address] [place] [address] Tiana Radha TSHon 08-30-2020 TSH 4.933 uIU/mL Critically high 0.470-4.680 [facility] Comment on above: Performed By: #### T SH, CMP, MG, LIPID #### [facility] [address], [place] [address] Tiana Garcia TSH RANGE SEE BELOW Normal [facility] Comment on above: Result Comment: <0.3 4 UIU/ml HYPERTHYROID 0.34-5.60 UIU/ml EUTHYROID >5.60 UIU/ml HYPOTHYROID Performed By: #### T SH, CMP, MG, LIPID #### [facility] [address], [place] [address] Tiana Garcia VITAMIN D 25 OHon 08-30-2020 VIT D 25-OH 84.7 ng/mL Normal [facility] Comment on above: Performed By: #### V ITAD #### [facility] [address], [place] [address] Tiana Garcia VIT D RANGES SEE BELOW Normal [facility] Comment on above: Result Comment: <20 ng/mL Vit D deficient 20 - <30 ng/mL Vit D insufficient 30 - 100 ng/mL Vit D sufficient >100 ng/mL Potential Toxicity Performed By: #### V ITAD #### [facility] [address], [place] [address] Tiana Garcia Otheron 04-05-2020 Radiology exam is complete. No Radiologist dictation. Please follow up with ordering provider. [facility], [place] CBC Auto Differentialon 02-28 Basophils (Bld) [#/Vol] 0.00 10*3/uL [facility], [place] Basophils/100 WBC (Bld) 1 % 0 - 2 % [place] Differential Type YES [place] Eosinophils (Bld) [#/Vol] 0.20 10*3/uL [facility], [place] Eosinophils/100 WBC (Bld) 3 % 0 - 5 % [place] Erythrocyte distribution width (RBC) [Ratio] 14.1 % 12.1 - 15.2 % [place] Hematocrit (Bld) [Volume fraction] 43.8 % 36 - 46 % [place] Hemoglobin (Bld) [Mass/Vol] 14.5 g/dL 12 - 16 g/dL [place] Lymphocytes (Bld) [#/Vol] 1.80 10*3/uL [place] Lymphocytes/100 WBC (Bld) 23 % 15 - 40 % [place] MCH (RBC) [Entitic mass] 30.9 pg 26 - 34 pg [place] MCHC (RBC) [Mass/Vol] 33.0 g/dL 31 - 37 g/dL [place] MCV (RBC) [Entitic vol] 93.7 fL 80 - 100 fL [place] Monocytes (Bld) [#/Vol] 0.60 10*3/uL [place] Monocytes/100 WBC (Bld) 8 % 4 - 8 % [place] Platelet mean volume (Bld) [Entitic vol] NOT REPORTED 6 - 12 fL [place] Platelets (Bld) [#/Vol] NOT REPORTED [place] Platelets (Bld) [#/Vol] 256 10*3/uL [place] RBC (Bld) [#/Vol] 4.68 10*6/uL 4 - 5.2 m/uL [place] RBC morphology finding Nom (Bld) NOT REPORTED [place] Segmented neutrophils/100 WBC (Bld) 65 % 47 - 75 % [place] Segs Absolute 5.00 [place] WBC (Bld) [#/Vol] NOT REPORTED per 100 WBC [place] WBC (Bld) [#/Vol] 7.7 10*3/uL [place] WBC Morphology NOT REPORTED [place] Comprehensive Metabolic Pane janeen 03-09-2020 Albumin [Mass/Vol] 4.1 g/dL 3.5 - 5.2 g/dL [place] Albumin/Globulin [Mass ratio] NOT REPORTED [place] ALP [Catalytic activity/Vol] 57 U/L 35 - 104 U/L [place] ALT [Catalytic activity/Vol] 12 U/L 5 - 33 U/L [place] Anion gap [Moles/Vol] 8 mmol/L Low 9 - 17 mmol/L [place] AST [Catalytic activity/Vol] 23 U/L <32 [place] Bilirubin Ql (U) 0.35 mg/dL 0.3 - 1.2 mg/dL [place] Bun/Cre Ratio 24 [place] Calcium [Mass/Vol] 9.8 mg/dL 8.6 - 10. 4 mg/dL [place] Chloride [Moles/Vol] 102 mmol/L 98 - 10 7 mmol/L [place] CO2 [Moles/Vol] 28 mmol/L 20 - 31 mmol/L [place] Creatinine [Mass/Vol] 1.05 mg/dL High 0.5 - 0.9 mg/dL [place] GFR >60 >60 mL/min [place] GFR Non- 51 mL/min Low >60 [place] GFR/1.73 sq M predicted among non-blacks MDRD (S/P/Bld) [Vol rate/Area] NOT REPORTED [place] GFR/1.73 sq M predicted among non-blacks MDRD (S/P/Bld) [Vol rate/Area] [place] Comment on above: Average GFR for 70 o r more years old: 75 mL/min/1.73sq m Chronic Kidney Disease: <60 mL/min/1.73sq m Kidney failure: <15 mL/min/1.73sq m eGFR calculated using average adult body mass. Additional eGFR calculator available at: http://www.Aireum.Studentbox/multiple_crcl_2012.htm Glucose [Mass/Vol] 102 mg/dL High 70 - 99 mg/dL [place] Interpretation and review of laboratory results Abnormal [place] Potassium [Moles/Vol] 4.2 mmol/L 3.7 - 5.3 mmol/L [place] Protein [Mass/Vol] 8.6 g/dL High 6.4 - 8.3 g/dL [place] Sodium [Moles/Vol] 138 mmol/L 135 - 144 mmol/L [place] Urea nitrogen [Mass/Vol] 25 mg/dL High 8 - 23 mg/dL [place] Lipid Panelon 03-09-2020 Cholesterol [Mass/Vol] 146 mg/dL <200 [place] Comment on above: Cholesterol Guidelines: <200 Desirable 200-240 Borderline >240 Undesirable Cholesterol in HDL [Mass/Vol] 39 mg/dL Low >40 [place] Comment on above: HDL Guidelines: <40 Undesirable 40-59 Borderline >59 Desirable Cholesterol in LDL [Mass/Vol] 58 mg/dL 0 - 130 mg/dL [place] Comment on above: LDL Guidelines: <100 Desirable 100-129 Near to/above Desirable 130-159 Borderline >159 Undesirable Direct (measured) LDL and calculated LDL are not interchangeable tests. Cholesterol in VLDL [Mass/Vol] NOT REPORTED High 1 - 30 mg/dL [place] Cholesterol.total/Chol esterol in HDL [Mass ratio] 3.7 {ratio} <5 [place] Interpretation and review of laboratory results Abnormal [place] Triglyceride [Mass/Vol] 246 mg/dL High <150 [place] Comment on above: Triglyceride Guidelines: <150 Desirable 150-199 Borderline 200-499 High >499 Very high Based on AHA Guidelines for fasting triglyceride, March 2012. Magnesiumon 03-09-2020 Magnesium [Mass/Vol] 2.0 mg/dL 1.6 - 2 .6 mg/dL [place] Otheron 03-09-2020 Immature granulocytes (Bld) [#/Vol] NOT REPORTED [place] Patient Fasting?on 0 Patient Fasting? YES [place] TSH with Reflexon 03-09-2020 TSH Qn 4.94 m[IU]/L [place] Vitamin D 25 Hydroxyon 03-09 Vit D, 25-Hydroxy 75.8 ng/mL 30 - 100 ng/mL [place] Comment on above: Reference Range: Vitamin D status Range Deficiency <20 ng/mL Mild Deficiency 20-30 ng/mL Sufficiency 30-100 ng/mL Toxicity >100 ng/mL XR CHEST (2 VW)on 03-09-2020 1. Prior sternotomy with AICD. 2. Mitral valve prosthesis. 3. Stable chest[place] EXAM: XR CHEST (2 VW) HISTORY: Reason for exam:->htn. Mitral valve insufficiency. 74-year-old female. COMPARISON: Chest x-ray 03/08/2019. TECHNIQUE: 2 views chest. FINDINGS: Dual-chamber pacemaker with previous sternotomy and a normal-sized heart. Mitral valve prosthesis. Lungs are clear. [place], [place] Incoming Radiant Results From [employer] - 03/09/2020 11:07 AM EDT EXAM: XR CHEST (2 VW) HISTORY: Reason for exam:->htn. Mitral valve insufficiency. 74-year-old female. COMPARISON: Chest x-ray 03/08/2019. TECHNIQUE: 2 views chest. FINDINGS: Dual-chamber pacemaker with previous sternotomy and a normal-sized heart. Mitral valve prosthesis. Lungs are clear. IMPRESSION: 1. Prior sternotomy with AICD. 2. Mitral valve prosthesis. 3. Stable chest. [place] ECHOCARDIO M/2D COMPLETEon 0 03-07-2020 ECHOCARDIO M/2D COMPLETE Patient: LUCIANA MEDINA Exam Date: 03/07/2020 : 1945 Gender:F Ordering : PAVEL BROWN Admission #: [id number] Family : DR JAYRO DE LEON . Order #: [id number] CLICK HERE TO VIEW EXAM ECHOCARDIOGRAM REPORT PROCEDURE: CARDIO PULMONARY ECHOCARDIO M/2D COMP INDICATIONS: Mitral Valve Insufficiency COMPARISON: None. DESCRIPTION: COMPLETE ECHOCARDIOGRAM Real-time transthoracic echocardiography with 2D, M-mode, spectral and color flow Doppler performed. QUALITY: Technical quality was good. LEFT VENTRICLE: Normal chamber size. Mild concentric left ventricular hypertrophy. LV EF: Mildly reduced left ventricular ejection fraction, (40-45%). Global hypokinesis. The septum is abnormal motion; this is not an uncommon finding in post open heart patients DIASTOLIC: Cannot be assessed given bioprosthetic mitral valve. ATRIAL SEPTUM: Intact atrial septum. LEFT ATRIUM: Normal chamber size. RIGHT ATRIUM: Normal chamber size. Pacer wire present. RIGHT VENTRICLE: Normal chamber size. Normal systolic function. Pacer wire present. TRICUSPID VALVE: Normal mobility and thickness. Mild regurgitation. MITRAL VALVE: Bio-Prosthetic valve with elevated velocities by Doppler: possible bioprosthetic mitral valve stenosis. No mitral regurgitation. AORTIC VALVE: Normal trileaflet appearance. Normal leaflet mobility. Multifocal calcifications. No aortic regurgitation. AORTIC ROOT: Normal diameter and appearance. PULMONIC VALVE: Normal thickness and mobility. Normal with No regurgitation. PERICARDIUM: No evidence of pericardial effusion. IVC: Within normal limits. CONCLUSION: Global left ventricular systolic function is mildly reduced. Ejection fraction is estimated to be 40 to 45%. Global hypokinesis with abnormal septal motion. The right ventricle is normal in size and systolic function. Mild tricuspid regurgitation. Bioprosthetic mitral valve with elevated velocities by Doppler; possible mitral valve stenosis. No significant mitral regurgitation. No prior echo available for comparison. Adult Echocardiography Procedure Report Left Ventricle LVEDD (3.7 - 5.6 cm): 4.08 cm LVESD (2.2 - 4.0 cm): 3.14 cm LVIVS thickness (0.6 - 1.2 cm): 1.06 cm LVPW thickness (0.5 - 1.0 cm): 1.05 cm e': 6.36 cm/s E - e': 31.80 LVOT Area (cm2): 3.14 cm2 Peak Velocity (LVOT): 64.90 cm/s LVOT Diameter 2.00 cm Left Ventricular Ejection Fraction: 46.70 % Left Atrium LA Volume Index (2D A2C): 26.20 ml/m2 Left Atrium Systolic Dimension: 3.50 cm Left Atrium Systolic Area(A2C): 16.10 cm2 Left Atrium Systolic Area(A4C): 13.80 cm2 Left Atrium Systolic Volume(A2C): 60869 mm3 Left Atrium Systolic Volume(A4C): 43254 mm3 Mitral Valve MV E to A Ratio: 1.60 MV Mean Gradient: 9 mm[Hg] Cardiovascular Orifice Area: 0.58 cm2 Mitral Valve A-Wave Peak Velocity: 128.00 cm/s Mitral Valve E-Wave Peak Velocity: 202.00 cm/s Deceleration Time: 526 ms Right Ventricle Aorta AO Root Diam: 2.60 cm Aortic Valve Peak Velocity (Antegrade Flow): 103.00 cm/s AoV Area (Peak Stefan): 1.75 cm2 AoV Area (VTI): 1.50 cm2 Peak Velocity(Antegrade Flow): 126.00 cm/s, 126.00 cm/s Peak Gradient(Antegrade Flow): 6 mm[Hg] Mean Velocity(Antegrade Flow): 87.80 cm/s Mean Gradient(Antegrade Flow): 3 mm[Hg], 3 mm[Hg] Velocity Time Integral: 28.30 cm Tricuspid Valve Pulmonic Valve Peak Velocity: 73.00 cm/s Peak Gradient: 2 mm[Hg] Right Atrium Dictated by: Ariel Rodriges M.D. on 03/07/2020 at 10:11 Approved by: Ariel Rodriges M.D. on 03/07/2020 at 10:21 Normal [facility] CBC Auto Differentialon Basophils (Bld) [#/Vol] 0.00 10*3/uL [place] Basophils/100 WBC (Bld) 0 % 0 - 2 % [place] Differential Type YES [place] Eosinophils (Bld) [#/Vol] 0.20 10*3/uL [place] Eosinophils/100 WBC (Bld) 3 % 0 - 5 % [place] Erythrocyte distribution width (RBC) [Ratio] 14.1 % 12.1 - 15.2 % [place] Hematocrit (Bld) [Volume fraction] 42.7 % 36 - 46 % [place] Hemoglobin (Bld) [Mass/Vol] 14.1 g/dL 12 - 16 g/dL [place] Interpretation and review of laboratory results Abnormal [place] Lymphocytes (Bld) [#/Vol] 1.50 10*3/uL [place] Lymphocytes/100 WBC (Bld) 21 % 15 - 40 % [place] MCH (RBC) [Entitic mass] 31.4 pg 26 - 34 pg [place] MCHC (RBC) [Mass/Vol] 33.2 g/dL 31 - 37 g/dL [place] MCV (RBC) [Entitic vol] 94.6 fL 80 - 100 fL [place] Monocytes (Bld) [#/Vol] 0.60 10*3/uL [place] Monocytes/100 WBC (Bld) 9 % High 4 - 8 % [place] Platelet mean volume (Bld) [Entitic vol] NOT REPORTED 6 - 12 fL [place] Platelets (Bld) [#/Vol] 257 10*3/uL [place] Platelets (Bld) [#/Vol] NOT REPORTED [place] RBC (Bld) [#/Vol] 4.51 10*6/uL 4 - 5.2 m/uL [place] RBC morphology finding Nom (Bld) NOT REPORTED [place] Segmented neutrophils/100 WBC (Bld) 67 % 47 - 75 % [place] Segs Absolute 4.80 [place] WBC (Bld) [#/Vol] NOT REPORTED per 100 WBC [place] WBC (Bld) [#/Vol] 7.2 10*3/uL [place] WBC Morphology NOT REPORTED [place] Comprehensive Metabolic Pane janeen 03-08-2019 Albumin [Mass/Vol] 4.1 g/dL 3.5 - 5.2 g/dL [place] Albumin/Globulin [Mass ratio] NOT REPORTED [place] ALP [Catalytic activity/Vol] 53 U/L 35 - 104 U/L [place] ALT [Catalytic activity/Vol] 14 U/L 5 - 33 U/L [place] Anion gap [Moles/Vol] 12 mmol/L 9 - 17 mmol/L [place] AST [Catalytic activity/Vol] 20 U/L <32 [place] Bilirubin Ql (U) 0.38 mg/dL 0.3 - 1.2 mg/dL [place] Bun/Cre Ratio 39 High [place] Calcium [Mass/Vol] 10.2 mg/dL 8.6 - 10. 4 mg/dL [place] Chloride [Moles/Vol] 106 mmol/L 98 - 10 7 mmol/L [place] CO2 [Moles/Vol] 23 mmol/L 20 - 31 mmol/L [place] Creatinine [Mass/Vol] 0.87 mg/dL 0.5 - 0.9 mg/dL [place] GFR >60 >60 mL/min [place] GFR Non- >60 >60 mL/min [place] GFR/1.73 sq M predicted among non-blacks MDRD (S/P/Bld) [Vol rate/Area] [place] Comment on above: Average GFR for 70 o r more years old: 75 mL/min/1.73sq m Chronic Kidney Disease: <60 mL/min/1.73sq m Kidney failure: <15 mL/min/1.73sq m eGFR calculated using average adult body mass. Additional eGFR calculator available at: http://www.Clearleap/[employer]_crcl_2011.htm GFR/1.73 sq M predicted among non-blacks MDRD (S/P/Bld) [Vol rate/Area] NOT REPORTED [place] Glucose [Mass/Vol] 101 mg/dL High 70 - 99 mg/dL [place] Potassium [Moles/Vol] 4.3 mmol/L 3.7 - 5.3 mmol/L [place] Protein [Mass/Vol] 7.7 g/dL 6.4 - 8.3 g/dL [place] Sodium [Moles/Vol] 141 mmol/L 135 - 144 mmol/L [place] Urea nitrogen [Mass/Vol] 34 mg/dL High 8 - 23 mg/dL [place] Lipid Panelon 03-08-2019 Cholesterol [Mass/Vol] 126 mg/dL <200 [place] Comment on above: Cholesterol Guidelines: <200 Desirable 200-240 Borderline >240 Undesirable Cholesterol in HDL [Mass/Vol] 42 mg/dL >40 [place] Comment on above: HDL Guidelines: <40 Undesirable 40-59 Borderline >59 Desirable Cholesterol in LDL [Mass/Vol] 54 mg/dL 0 - 130 mg/dL [place] Comment on above: LDL Guidelines: <100 Desirable 100-129 Near to/above Desirable 130-159 Borderline >159 Undesirable Direct (measured) LDL and calculated LDL are not interchangeable tests. Cholesterol in VLDL [Mass/Vol] NOT REPORTED 1 - 30 mg/dL [place] Cholesterol.total/Chol esterol in HDL [Mass ratio] 3 {ratio} <5 [place] Triglyceride [Mass/Vol] 152 mg/dL High <150 [place] Comment on above: Triglyceride Guidelines: <150 Desirable 150-199 Borderline 200-499 High >499 Very high Based on AHA Guidelines for fasting triglyceride, March 2012. Magnesiumon 03-08-2019 Magnesium [Mass/Vol] 1.9 mg/dL 1.6 - 2 .6 mg/dL [place] Otheron 03-08-2019 Interpretation and review of laboratory results Abnormal [place] Immature granulocytes (Bld) [#/Vol] NOT REPORTED [place] Patient Fasting?on 9 Patient Fasting? yes [place] TSH with Reflexon 03-08-2019 TSH Qn 1.40 m[IU]/L [place] Vitamin D 25 Hydroxyon 03-08 Vit D, 25-Hydroxy 82.5 ng/mL 30 - 100 ng/mL [place] Comment on above: Reference Range: Vitamin D status Range Deficiency <20 ng/mL Mild Deficiency 20-30 ng/mL Sufficiency 30-100 ng/mL Toxicity >100 ng/mL XR CHEST STANDARD (2 VW)on 0 03-08-2019 1. Prior sternotomy with AICD. 2. Mitral valve prosthesis. 3. Stable chest. [place] EXAM: XR CHEST (2 VW) HISTORY: Reason for exam:->CAD COMPARISON: 03/10/2018 TECHNIQUE: 2 views chest FINDINGS: Dual-chamber pacemaker with previous sternotomy and a normal-sized heart. Mitral valve prosthesis. Lungs are clear. [place], [place] Incoming Radiant Results From [email or web address] - 03/08/2019 11:50 AM EDT EXAM: XR CHEST (2 VW) HISTORY: Reason for exam:->CAD COMPARISON: 03/10/2018 TECHNIQUE: 2 views chest FINDINGS: Dual-chamber pacemaker with previous sternotomy and a normal-sized heart. Mitral valve prosthesis. Lungs are clear. IMPRESSION: 1. Prior sternotomy with AICD. 2. Mitral valve prosthesis. 3. Stable chest. [facility] Vital Signs Date Time Vital Sign Value Performing Clinician [facility] 04-06-2024 09:51-0400 Body height 158.8 cm Jayro De Leon MD Work Phone: [facility] 04-06-2024 09:51-0400 Body mass index (BMI) [Ratio] 23.94 kg/m2 Jayro De Leon MD Work Phone: [facility] 04-06-2024 09:51-0400 Body weight 60.33 kg Jayro De Leon MD Work Phone: [facility] 04-06-2024 09:51-0400 Diastolic blood pressure 68 mm[Hg] Jayro De Leon MD Work Phone: [facility] 04-06-2024 09:51-0400 Heart rate 83 /min Jayro De Leon MD Work Phone: [facility] 04-06-2024 09:51-0400 SaO2% (BldA) [Mass fraction] 97 % Jayro DeL eon MD Work Phone: [facility] 04-06-2024 09:51-0400 Systolic blood pressure 120 mm[Hg] Jayro De Leon MD Work Phone: [facility] 01-31-2022 10:37-0400 Body height 157.5 cm Hay Causey MD Work Phone: [facility] 01-31-2022 10:37-0400 Body mass index (BMI) [Ratio] 24.14 kg/m2 Hay Causey MD Work Phone: [facility] 01-31-2022 10:37-0400 Body temperature 97.9 [degF] Hay Causey MD Work Phone: [facility] 01-31-2022 10:37-0400 Body weight 59.88 kg Hay Causey MD Work Phone: [facility] 01-31-2022 10:37-0400 Diastolic blood pressure 83 mm[Hg] Hay Causey MD Work Phone: [facility] 01-31-2022 10:37-0400 Heart rate 81 /min Hay Causey MD Work Phone: [facility] 01-31-2022 10:37-0400 SaO2% (BldA) [Mass fraction] 96 % Hay Causey MD Work Phone: [facility] 01-31-2022 10:37-0400 Systolic blood pressure 136 mm[Hg] Hay Causey MD Work Phone: [facility] 11-01-2021 09:15-0400 Diastolic blood pressure 58 mm[Hg] Mariel Kenney MD Work Phone: [facility] 11-01-2021 09:15-0400 Heart rate 74 /min Mariel Kenney MD Work Phone: [facility] 11-01-2021 09:15-0400 Respiratory rate 18 /min Mariel Kenney MD Work Phone: [facility] 11-01-2021 09:15-0400 SaO2% (BldA) [Mass fraction] 99 % Mariel Kenney MD Work Phone: [employer] 11-01-2021 09:15-0400 Systolic blood pressure 142 mm[Hg] Mariel Kenney MD Work Phone: [facility] 11-01-2021 08:38-0400 Body temperature 97.7 [degF] Mariel Kenney MD Work Phone: [employer] 11-01-2021 07:40-0400 Body height 157.5 cm Mariel Kenney MD Work Phone: [employer] [facility] 11-01-2021 07:40-0400 Body mass index (BMI) [Ratio] 23.78 kg/m2 Mariel Kenney MD Work Phone: [employer] 11-01-2021 07:40-0400 Body weight 58.97 kg Mariel Kenney MD Work Phone: [facility] Encounters Encounter Date Encounter Type Care Provider Facility Start: 07-02-2024 End: 07-02-2024 [facility] Start: 06-15-2024 End: 06-15-2024 [facility] Result Encounter Generic External Data Provider [facility] External Department Unsolicited Start: 06-15-2024 End: 06-15-2024 [facility] Result Encounter Generic External Data Provider [facility] External Department Unsolicited Start: 06-15-2024 End: 06-17-2024 Health system Start: 06-15-2024 End: 06-17-2024 Subsequent hospital visit by physician French Additional Xray At [facility] RESPIRATORY THERAPY Comment on above: Automatic implantabl e cardioverter-defibrillator in situ; Coronary artery disease involving [place] heart without angina pectoris, unspecified vessel or lesion type; Essential (primary) hypertension; Vitamin D deficiency disease; H/O mitral valve replacement; Pacemaker Chest pain, unspecif ied type; SOB (shortness of breath); Essential (primary) hypertension; Coronary artery disease involving [place] heart without angina pectoris, unspecified vessel or lesion type; Acute cough Acute cough Start: 06-08-2024 End: 06-10-2024 Health system Start: 06-08-2024 End: 06-10-2024 Subsequent hospital visit by physician Pavel Brown MD Work Phone: [facility] Vascular Lab Comment on above: Bilateral carotid br uits Start: 06-08-2024 End: 06-10-2024 Health system Start: 06-08-2024 End: 06-10-2024 Subsequent hospital visit by physician Pavel Brown MD Work Phone: [facility] CT Scan Comment on above: Chest pain, unspecif ied type; SOB (shortness of breath); Aneurysm (HCC); Essential (primary) hypertension; Chest pain, cardiac Chest pain, unspecif ied type; SOB (shortness of breath); Aneurysm (HCC) Shortness of breath Start: 06-01-2024 End: 06-01-2024 Health system Start: 06-01-2024 End: 06-01-2024 Subsequent hospital visit by physician Jayro De Leon MD Work Phone: [facility] Comment on above: Shortness of breath Start: 06-01-2024 End: 06-01-2024 Clinisync Result Encounter Generic External Data Provider [facility] External Department Unsolicited Start: 06-01-2024 End: 06-01-2024 Clinisync Result Encounter Generic External Data Provider [facility] External Department Unsolicited Start: 04-06-2024 End: 04-06-2024 Bamboo flowsheet Jayro De Leon MD Work Phone: [facility] FM 100 Start: 04-06-2024 End: 04-06-2024 Bamboo flowsheet Jayro De Leon MD Work Phone: [facility] 100 Start: 04-06-2024 End: 04-06-2024 Office outpatient visit 25 minutes Jayro De Leon MD Work Phone: [facility] FM 100 Comment on above: Primary hypertension (CMS/HCC); Hypertensive nephropathy (CMS/HCC); Stage 3a chronic kidney disease (HCC) (CMS/HCC); Microalbuminuria; Mixed dyslipidemia (CMS/HCC); Acquired hypothyroidism (CMS/HCC); Former cigarette smoker Start: 04-06-2024 End: 04-06-2024 ambulatory JAYRO DE LEON Not Available Start: 11-25-2023 End: 11-25-2023 ambulatory JAYRO DE LEON Not Available Start: 10-09-2023 End: 10-09-2023 ambulatory JAYRO DE LEON Not Available Start: 07-21-2023 End: 07-21-2023 Subsequent hospital visit by physician Jayro De Leon MD Work Phone: [facility] RESPIRATORY THERAPY Comment on above: Automatic implantabl e cardioverter-defibrillator in situ; Coronary artery disease involving [place] heart without angina pectoris, unspecified vessel or lesion type; Essential (primary) hypertension; Vitamin D deficiency disease; H/O mitral valve replacement Start: 07-21-2023 End: 07-23-2023 ambulatory JAYRO DE LEON [facility] Start: 07-16-2022 End: 07-16-2022 Subsequent hospital visit by physician [facility] Echo Room [facility] Laboratory Comment on above: Coronary artery dise ase involving [place] heart without angina pectoris, unspecified vessel or lesion type; Essential (primary) hypertension; Pacemaker; H/O mitral valve replacement Start: 02-26-2022 Documentation procedure Mariaelena livingston RN [facility] Start: 02-20-2022 Orders Only Mariaelena Painting RN [facility] Comment on above: Other nonrheumatic m itral valve disorders (Primary Dx); Mitral valve insufficiency, unspecified etiology Mitral valve insuffi ciency, unspecified etiology (Primary Dx) Start: 02-06-2022 Orders Only Mariaelena Painting RN [facility] Comment on above: Stenosis of prosthet ic mitral valve, sequela (Primary Dx); Other nonrheumatic mitral valve disorders Start: 02-01-2022 Documentation procedure Manpreet Corea RN [facility] Start: 01-31-2022 End: 01-31-2022 Office outpatient new 45 minutes Hay Causey MD Work Phone: [facility] Comment on above: Stenosis of prosthet ic mitral valve, initial encounter (Primary Dx) Start: 01-22-2022 Orders Only Ligia abdi MD [facility] Start: 01-18-2022 Orders Only Mariaelena Painting RN [facility] Comment on above: Stenosis of prosthet ic mitral valve, sequela (Primary Dx) Start: 11-01-2021 End: 11-01-2021 ambulatory MARIEL Shea [facility] Start: 11-01-2021 End: 11-01-2021 Subsequent hospital visit by physician Mariel Kenney MD Work Phone: [facility] [employer] Comment on above: H/O mitral valve rep lacement Start: 10-03-2021 End: 10-05-2021 Subsequent hospital visit by physician [facility] Echo Room [place] [facility] ECHO Comment on above: H/O mitral valve rep lacement Pacemaker; Coronary artery disease involving [place] heart without angina pectoris, unspecified vessel or lesion type; Vitamin D deficiency disease; Essential (primary) hypertension; H/O mitral valve replacement Start: 03-12-2021 End: 03-12-2021 Subsequent hospital visit by physician Jayro De Leon MD Work Phone: [facility] Comment on above: Automatic implantabl e cardioverter-defibrillator in situ; Coronary artery disease involving [place] heart without angina pectoris, unspecified vessel or lesion type; Vitamin D deficiency disease; Essential (primary) hypertension ; Mitral valve insufficiency, unspecified etiology Start: 02-09-2021 End: 02-10-[address] JAYRO DE LEON Facility:[facility] Start: 08-30-2020 End: 08-31-2020 ambulatory PAVEL BROWN Facility:[facility] Start: 04-05-2020 End: 04-07-2020 Subsequent hospital visit by physician [facility] Stress [facility] Stress Lab Comment on above: Arrived Start: 03-09-2020 End: 03-11-2020 Subsequent hospital visit by physician [facility] Additional Xray At [facility] Laboratory Comment on above: Pacemaker; Mitral valve insufficiency, unspecified etiology; Coronary artery disease involving [place] heart without angina pectoris, unspecified vessel or lesion type; Vitamin D deficiency disease; Essential (primary) hypertension ; Fatigue, unspecified type Pacemaker; Mitral valve insufficiency, unspecified etiology; Coronary artery disease involving [place] heart without angina pectoris, unspecified vessel or lesion type; Vitamin D deficiency disease Start: 03-07-2020 End: 03-08-2020 ambulatory PAVEL BROWN Facility: Start: 03-08-2019 End: 03-10-2019 Subsequent hospital visit by physician [facility] Additional Xray At [facility] Radiology Comment on above: Automatic implantabl e cardioverter-defibrillator in situ; Mitral valve insufficiency, unspecified etiology; H/O mitral valve replacement; Coronary artery disease involving [place] heart without angina pectoris, unspecified vessel or lesion type; Vitamin D deficiency disease; [place], old; S/P CABG (coronary artery bypass graft); Vitamin D deficiency; Fatigue, unspecified type Start: 12-22-2017 End: 12-23-2017 Ambulatory DEFAULT PHYSICIAN Facility:[facility] Procedures Date Procedure Procedure Detail Performing Clinician Start: 06-15-2024 Radiologic exam ches t 2 views Pavel Brown MD Work Phone: Start: 06-15-2024 Ecg routine ecg w/le ast 12 lds w/i&r Pavel Brown MD Work Phone: Start: 06-15-2024 ALL MAGNESIUM Generic E xternal Data Provider Start: 06-15-2024 Comprehensive metabo lic panel Pavel Brown MD Work Phone: Start: 06-15-2024 Lipid panel Pavel garner MD Work Phone: Start: 06-15-2024 [facility] CBC WITH DIFF Gene khoa External Data Provider Start: 06-15-2024 [facility] COMP METABOLIC PROF Generic External Data Provider Start: 06-15-2024 [facility]PT PATIENT FASTING? G eneric External Data Provider Start: 06-08-2024 Us abdominal real ti me w/image limited Pavel Brown MD Work Phone: Start: 06-08-2024 3d rendering w/inter p & postprocess supervision Pavel Brown MD Work Phone: Start: 06-08-2024 Cta abdl aorta&bi il iofem w/contrast&postp Pavel Brown MD Work Phone: Start: 06-08-2024 TTE w or wo fol wcon,Doppler Pavel Brown MD Work Phone: Start: 06-01-2024 ALL BASIC METABOLIC PANEL Generic External Data Provider Start: 06-01-2024 Basic metabolic pane l calcium total Pavel Brown MD Work Phone: Start: 07-21-2023 Ecg routine ecg w/le ast 12 lds w/i&r Pavel Brown MD Work Phone: Start: 07-16-2022 Ecg routine ecg w/le ast 12 lds w/i&r Pavel Brown MD Work Phone: Start: 07-16-2022 Comprehensive metabo lic panel Pavel Brown MD Work Phone: Start: 07-16-2022 Lipid panel Pavel garner MD Work Phone: Start: 07-16-2022 PATIENT FASTING? Pavel Brown MD Work Phone: Start: 02-06-2022 CARDIOLOGY SCANS Histor ical Provider Start: 11-01-2021 POOL Historical Provider Start: 10-03-2021 Radiologic exam ches t 2 views Pavel Brown MD Work Phone: Start: 10-03-2021 Comprehensive metabo lic panel Pavel Brown MD Work Phone: Start: 10-03-2021 Lipid panel Pavel garner MD Work Phone: Start: 10-03-2021 PATIENT FASTING? Pavel Brown MD Work Phone: Start: 03-12-2021 Ecg routine ecg w/le ast 12 lds w/i&r Pavel Brown MD Work Phone: Start: 03-12-2021 Comprehensive metabo lic panel Pavel Brown MD Work Phone: Start: 03-12-2021 Lipid panel Pavel garner MD Work Phone: Start: 03-12-2021 PATIENT FASTING? Pavel Brown MD Work Phone: Start: 04-05-2020 Myocardial spect mul tiple studies Pavel Brown Work Phone: Start: 03-09-2020 Radiologic exam ches t 2 views Pavel Brown Work Phone: Start: 03-09-2020 25 hydroxy includes fractions if performed Pavel Brown Work Phone: Start: 03-09-2020 Assay of magnesium Pavel Brown Work Phone: Start: 03-09-2020 Assay of thyroid stimulating hormone tsh Pavel Brown Work Phone: Start: 03-09-2020 Blood count complete auto&auto difrntl wbc Pavel Brown Work Phone: Start: 03-09-2020 Comprehensive metabo lic panel Pavel Brown Work Phone: Start: 03-09-2020 Lipid panel Pavel garner Work Phone: Start: 03-09-2020 PATIENT FASTING? Pavel Brown Work Phone: Start: 03-08-2019 Radiologic exam ches t 2 views Pavel Brown Work Phone: Start: 03-08-2019 25 hydroxy includes fractions if performed Pavel Brown Work Phone: Start: 03-08-2019 Assay of magnesium Pavel Brown Work Phone: Start: 03-08-2019 Assay of thyroid stimulating hormone tsh Pavel Brown Work Phone: Start: 03-08-2019 Blood count complete auto&auto difrntl wbc Pavel Brown Work Phone: Start: 03-08-2019 Comprehensive metabo lic panel Pavel Brown Work Phone: Start: 03-08-2019 Lipid panel Pavel garner Work Phone: Start: 03-08-2019 PATIENT FASTING? Pavel Brown Work Phone: Start: 03-08-2019 Ecg routine ecg w/le ast 12 lds w/i&r Pavel Brown Work Phone: Start: 06-24-2012 History of coronary artery bypass grafting S/P CABG (coronary artery bypass graft) Jayro De Leon MD Work Phone: Plan of Treatment Date Care Activity Detail Author Start: 06-15-2025 Lipid panel Lipids [employer] Start: 11-24-2024 Pneumococcal Vaccine: 65+ Years (2 of 2 - PCV) Pneumococcal Vaccine: 65+ Years (2 of 2 - PCV) [facility] Comment on above: Postponed from 09/23/2014 (Patient Refus ed) Start: 09-29-2024 End: 09-29-2024 Patient encounter procedure [facility] 100 Start: 07-21-2024 Lipid panel Lipids [employer] Start: 07-15-2024 End: 07-15-2024 Patient encounter procedure 07/15/2024 10:30 AM EST Office Visit [facility] [address] [place] [phone] Pavel Brown MD [address] [place] [address] 1 yr f/u lab/ekg/cxr[facility] and [employer]--battery getting low [facility] Comment on above: 1 yr f/u lab/ekg/cxr/echo([facility]) a nd [employer]--battery getting low Start: 07-02-2024 End: 07-02-[address] [facility] Comment on above: Bilateral heart cath--Dr. Brown @ [facility]--not scheduled with Teresa-- Authorization # [id number] valid until 12/12/24 Bilateral heart cath --Dr. Brown @ [facility]- scheduled with Teresa-- Authorization # [id number] valid until 12/12/24 Start: 06-15-2024 End: 06-15-2024 Patient encounter procedure 06/15/2024 11:00 AM EST Office Visit [facility] [address] [place] [phone] Pavel Brown MD [address] [place] [address] 2 week f/u with echo prior [facility] Comment on above: 2 week f/u with echo prior Start: 06-08-2024 End: 06-08-2024 Patient encounter procedure 06/08/2024 10:30 AM EST Appointment [facility] Non-Invasive Cardiology [address] [place] [address] Pavel Brown MD [address] [place] [address] [facility] Comment on above: liseth/chelo Start: 06-01-2024 Influenza vaccination Influenza Vaccine (#1) [facility] Comment on above: Postponed from 02/29/2024 (Patient Refus ed) Start: 04-06-2024 End: 04-06-2024 Patient encounter procedure 04/06/2024 10:00 AM EDT Office Visit [facility] CI FM 100 [address] [address] [place] [phone] Jayro De Leon MD [address] [place] [address] Primary hypertension (CMS/HCC); Hypertensive nephropathy (CMS/HCC); Stage 3a chronic kidney disease (HCC) (CMS/HCC); Microalbuminuria; Mixed dyslipidemia (CMS/HCC); Acquired hypothyroidism (CMS/HCC); Former cigarette smoker [facility] 100 Comment on above: Primary hypertension (CMS/HCC); Hypertensive nephropathy (CMS/HCC); Stage 3a chronic kidney disease (HCC) (CMS/HCC); Microalbuminuria; Mixed dyslipidemia (CMS/HCC); Acquired hypothyroidism (CMS/HCC); Former cigarette smoker Start: 03-08-2024 Lipid screen [facility] [place] Start: 02-29-2024 Influenza vaccination Influenza Vaccine (#1) [facility] Start: 02-19-2024 [facility] Start: 01-29-2024 Influenza vaccination Flu [facility] (#[facility]) [facility] Start: 08-05-2023 End: 08-05-2023 Patient encounter procedure 08/05/2023 12:30 PM EST Office Visit [facility] [address] [place] [phone] Pavel Brown MD [address] [place] [address] 5 mth follow up labs ekg echo prior [facility] Comment on above: 5 mth follow up labs ekg echo prior Start: 06-30-2023 Annual Wellness Visit (Medicare Advantage) Annual Wellness Visit (Medicare Advantage) [facility] Start: 03-10-2023 Lipid screen Lipid screen [facility] Start: 01-30-2023 Screening for malignant neoplasm of lung Lung Cancer Screening &/or Counseling [facility] [employer] Start: 01-28-2023 Influenza vaccination Flu vaccine (#1) [facility] [employer] Start: 01-28-2023 Tetanus vaccination Tetanus: Every 10yrs [facility] Start: 12-28-[address] [facility] Start: 10-03-2022 Creatinine measurement [facility] Start: 10-03-2022 Lipid panel [facility] Start: 10-03-2022 Potassium [Moles/volume] in Serum or Plasma Potassium [facility] [employer] Start: 10-03-2022 Potassium monitoring Potassium monitoring [facility] Start: 08-23-2022 End: 04-22-2023 Echocardiography [facility] Work Phone: Comment on above: Expected: 08/23/2022, Expires: Start: 08-23-2022 End: 08-23-2022 Patient encounter procedure 08/23/2022 Office Visit Cardiology Alvaro Lucio MD [address] [place] [address] [facility] Start: 08-12-2022 End: 08-12-2022 Patient encounter procedure 08/12/2022 Appointment Cardiology Alvaro Lucio MD [address] [place] [address] [facility] Start: 08-06-2022 End: 08-06-2022 Patient encounter procedure 08/06/2022 Office Visit Cardiology Pavel Brown MD [address] [place] [address] [facility] Start: 03-12-2022 Creatinine measurement Creatinine monitoring [facility] [employer] Work Phone: Start: 03-12-2022 Lipid panel Lipid screen [facility] Start: 03-12-2022 Potassium monitoring Potassium monitoring [facility] Work Phone: Start: 02-28-2022 Influenza vaccination [facility] Start: 02-11-2022 End: 02-11-2022 Patient encounter procedure 02/11/2022 Appointment Cardiology Alvaro Lucio MD [address] [place] [address] [facility] Cardiac Non-Invasive Lab Start: 02-04-2022 End: 02-04-2022 Patient encounter procedure 02/04/2022 Appointment Cardiology Alvaro Lucio MD [address] [place] [address] [facility] Start: 01-31-2022 End: 01-31-2022 Patient encounter procedure 01/31/2022 Office Visit Cardiology Hay Causey MD [address] [place] [address] [facility] Start: 01-30-2022 End: 01-30-2022 Patient encounter procedure 01/30/2022 Appointment Radiology Alvaro Lucio MD [address] [place] [address] [facility] [address] Scan Start: 01-28-2022 Influenza vaccination Flu vaccine (#1) [facility] Start: 11-22-2021 End: 11-22-2021 Patient encounter procedure 11/22/2021 Office Visit Cardiology Pavel Brown MD [address] [place] [address] [facility] Start: 10-16-2021 End: 10-16-2021 Patient encounter procedure 10/16/2021 Office Visit Cardiology Pavel Brown MD [address] [place] [address] [facility] Start: 08-30-2021 Lipid panel Lipid screen [facility] Work Phone: Start: 03-20-2021 End: 03-20-2021 Patient encounter procedure 03/20/2021 Office Visit Cardiology Pavel Brown MD [address] [place], [place] [phone] [facility] Start: 03-09-2021 Creatinine measurement Creatinine monitoring [facility], [place] Start: 03-09-2021 Lipid panel Lipid screen [place] Start: 03-09-2021 Potassium monitoring Potassium monitoring [place] Start: 02-28-2021 Influenza vaccination Flu vaccine (#1) [facility] [employer] Work Phone: Start: 01-21-2021 COVID-19 Vaccine (3 - Booster for Moderna series) COVID-19 Vaccine (3 - Booster for Moderna series) [facility] Start: 12-27-2020 History and physical examination, annual for health maintenance Wellness Visit [facility] Start: 09-19-2020 End: 09-19-2020 Nurse Only 09/19/2020 Nurse Only Cardiology Pavel Brown MD [address] [place] [address] [phone] [facility] Start: 03-14-2020 End: 03-14-2020 Office Visit 03/14/2020 Office Visit Cardiology Pavel Brown MD [address] [place] [address] [phone] [facility] Start: 03-08-2020 Creatinine measurement Creatinine monitoring [facility] [place] Start: 03-08-2020 Creatinine monitoring Creatinine monitoring [place], [place] Start: 03-08-2020 Lipid panel Lipid screen [place] Start: 03-08-2020 Potassium monitoring Potassium monitoring [place] Start: 02-29-2020 Influenza vaccination Flu vaccine (#1) [place] Start: 03-16-2019 End: 03-16-2019 Office Visit 03/16/2019 Office Visit Cardiology Pavel Brown MD [address] [place] [address] [phone] [facility] Start: 03-10-2019 Creatinine monitoring Creatinine monitoring [place], [place] Start: 03-10-2019 Potassium monitoring Potassium monitoring [place] Start: 02-28-2019 Influenza vaccination Flu vaccine (#1) [place] Start: 12-19-2018 Respiratory Syncytial Virus (RSV) or age 60 yrs+ (1 - 1-dose 75+ series) Respiratory Syncytial Virus (RSV) or age 60 yrs+ (1 - 1-dose 75+ series) [facility] Start: 12-17-2018 Annual Wellness Visit (AWV) Annual Wellness Visit (AWV) [facility] Start: 09-23-2014 Pneumococcal 65+ years Vaccine (2 - PCV) Pneumococcal 65+ years Vaccine (2 - PCV) [facility] Start: 09-23-2014 Pneumococcal Vaccine: Age 65+ (2 - PCV) Pneumococcal Vaccine: Age 65+ (2 - PCV) [facility] Start: 01-29-2013 DTaP/Tdap/Td vaccine (1 - Tdap) DTaP/Tdap/Td vaccine (1 - Tdap) [facility] Start: 12-19-2008 DEXA (modify frequency per FRAX score) DEXA (modify frequency per FRAX score) [place] Start: 12-19-2008 Fall risk assessment Falls Risk Assessment [facility] Start: 12-19-2008 Pneumococcal 65+ years Vaccine (1 of 1 - PPSV23) Pneumococcal 65+ years Vaccine (1 of 1 - PPSV23) [place] Start: 12-19-2008 Pneumococcal 65+ years Vaccine (1 of 2 - PCV13) Pneumococcal 65+ years Vaccine (1 of 2 - PCV13) [place] Start: 12-19-2006 Annual Wellness Visit (AWV) Annual Wellness Visit (AWV) [place] Start: 2003 Respiratory Syncytial Virus (RSV) or age 60 yrs+ (1 - 1-dose 60+ series) Respiratory Syncytial Virus (RSV) or age 60 yrs+ (1 - 1-dose 60+ series) [facility] Start: 12-19-[address] lung screening Low dose CT lung screening [place], [place] Start: 12-19-1998 Screening for malignant neoplasm of lung Low dose CT lung screening [place] Start: 12-19-1998 Screening for osteoporosis DEXA (modify frequency per FRAX score) [facility] Start: 12-19-1993 Administration of herpes zoster vaccine Zoster Vaccines (1 of 2) [facility] Start: 12-19-1993 Colon cancer screen colonoscopy Colon cancer screen colonoscopy [place] Start: 12-19-1993 Screening for malignant neoplasm of lung [facility] Start: 12-19-1993 Shingles Vaccine (1 of 2) Shingles Vaccine (1 of 2) [facility] Start: 1983 Screening for malignant neoplasm of breast Mammogram [facility] Start: 12-19-1962 DTaP/Tdap/Td vaccine (1 - Tdap) DTaP/Tdap/Td vaccine (1 - Tdap) [place] Start: 12-19-1961 Hepatitis C screening [facility] Start: 1955 COVID-19 Vaccine (1) COVID-19 Vaccine (1) [facility] [employer] Phone: Start: 1955 Depression Screen Depression Screen [facility] Start: 1955 Depression screening using PHQ-9 (Patient Health Questionnaire 9) score Depression Screening (PHQ-2/9) [facility] Start: 12-19-1948 COVID-19 Vaccine (1) COVID-19 Vaccine (1) [facility] Start: 1943 Annual Wellness Visit (AWV) Annual Wellness Visit (AWV) [facility] Start: 1943 Hepatitis C screening Hepatitis C screen [facility] Start: 1943 Screening for osteoporosis Dexa Scan [facility] Continuous pulse oximetry Pulse oximetry, continuous Respiratory Care Routine Every 4hr until discontinued starting 11/01/2021 [employer] Phone: Comment on above: Every 4hr until discontinued starting Continuous pulse oximetry Pulse oximetry, continuous Respiratory Care Routine Every 4hr until discontinued starting 11/01/2021 [employer] Phone: Comment on above: Every 4hr until discontinued starting End: 01-18-[address] [facility] Without Hydration Imaging Routine Stenosis of prosthetic mitral valve, sequela 1 Occurrences starting 01/18/2022 until 01/18/2023 [employer] Phone: Comment on above: 1 Occurrences starting 01/18/2022 until 01/18/2023 End: 10-03-2021 ECHO Complete 2D W Doppler W Color ECHO Complete 2D W Doppler W Color Echocardiography Routine H/O mitral valve replacement 1 Occurrences starting 10/03/2021 until 10/03/2021 [employer] Phone: Comment on above: 1 Occurrences starting 10/03/2021 until 10/03/2021 End: 07-16-2022 ECHO Complete 2D W Doppler W Color ECHO Complete 2D W Doppler W Color Echocardiography Routine Coronary artery disease involving [place] heart without angina pectoris, unspecified vessel or lesion type Essential (primary) hypertension Pacemaker H/O mitral valve replacement 1 Occurrences starting 07/16/2022 until 07/16/2022 [employer] Phone: Comment on above: 1 Occurrences starting 07/16/2022 until 07/16/2022 EKG 12 Lead [employer] [place], [place] EKG 12 Lead EKG 12 Lead ECG Routine Coronary artery disease involving [place] heart without angina pectoris, unspecified vessel or lesion type Essential (primary) hypertension Pacemaker H/O mitral valve replacement 07/16/2022 8:27 AM EST [employer] Phone: EKG 12 Lead EKG 12 Lead ECG Routine Automatic implantable cardioverter-defibrillato r in 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, unspecified vessel or lesion type Essential (primary) hypertension Vitamin D deficiency disease H/O mitral valve replacement 07/21/2023 9:15 AM EST [email or web address] EKG 12 Lead EKG 12 Lead ECG Routine Automatic implantable cardioverter-defibrillato r in 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, unspecified vessel or lesion type Essential (primary) hypertension Vitamin D deficiency disease H/O mitral valve replacement Pacemaker 06/15/2024 12:08 PM EST [employer] End: 11-01-2021 End Tidal CO2 Continuous End Tidal CO2 Continuous Respiratory Care Routine Continuous until discontinued starting 11/01/2021 [employer] Phone: Comment on above: Continuous until discontinued starting 0 11/01/2021 Oxygen therapy [[facility]ini [facility] Data Set] Initiate Oxygen Therapy Protocol Respiratory Care Routine As Needed until discontinued starting 11/01/2021 [employer] Phone: Comment on above: As Needed until discontinued starting Oxygen therapy [[employer] Data Set] Initiate Oxygen Therapy Protocol Respiratory Care Routine As Needed until discontinued starting 11/01/2021 [employer] Phone: Comment on above: As Needed until discontinued starting End: 06-15-2024 Patient Fasting? [employer] Comment on above: Once for 1 Occurrences starting 06/15/20 24 until 06/15/2024 End: 04-08-2023 Transesophageal echocardiography Echocardiogram transesophageal Echocardiography Routine Stenosis of prosthetic mitral valve, sequela Other nonrheumatic mitral valve disorders 1 Occurrences starting 02/06/2022 until 04/08/2023 [facility] Work Phone: Comment on above: 1 Occurrences starting 02/06/2022 until 04/08/2023 End: 06-08-2024 Vascular duplex carotid bilateral [facility] [employer] Comment on above: 1 Occurrences starting 06/08/2024 until 06/08/2024 Immunizations Immunization Date Immunization Notes Care Provider Fa [facility] 03-11-2024 Pneumococcal Conjuga te PCV 20 Jayro De Leon MD Work Phone: [facility] 04-07-2023 SARS-COV-2 (COVID-19 ) vaccine, mRNA, spike protein, LNP, PF, 50 mcg/0.5 mL Jayro De Leon MD Work Phone: [facility] 05-29-2022 Moderna Bivalent Cali ster Vaccination Jayro De Leon MD Work Phone: [facility] 05-29-2022 SARS-CoV-2, Unspecified Coleen De Leon MD Work Phone: [facility] 09-23-2013 pneumococcal polysaccharide vaccine, 23 valent Jayro De Leon MD Work Phone: [facility] 01-28-2013 tetanus and diphther ia toxoids, adsorbed, preservative free, for adult use (5 Lf of tetanus toxoid and 2 Lf of diphtheria toxoid) Jayro De Leon MD Work Phone: [facility] Payers Date Payer Category Payer Medicaid [employer] MEDICARE A DVANTAGE [id number] 2021 Medicare [id number]. [id number] 2021 Medicare [id number]. [id number] 2014 Medicare xxxxxxxxxxx [id number]. [id number] 1959 Medicare [id number] [id number]. [id number] 1959 Medicare [id number] 1959 Unknown [id number] [id number].3. [id number] 1943 Unknown [id number] 2.16.840.1.358431.3.579.2.593 1943 Unknown [id number] 2.16.840.1.855472.3.579.2.593 1943 Unknown [id number] 2.16.840.1.449550.3.579.2.593 1943 Unknown [id number] 2.16.840.1.382273.3.579.2.173 1943 Unknown [id number] 2.16.840.1.438159.3.579.2.1259 1943 Unknown [id number] 2.16.840.1.723378.3.579.2.1259 1943 Unknown [id number] 2.16.840.1.019287.3.579.2.1259 1943 Unknown [id number] 2.16.840.1.769303.3.579.2.174 1943 Unknown [id number] 2.16.840.1.230406.3.579.2.174 1943 Unknown [id number] 2.16840.1.282326.3.579.2.174 1943 Unknown [id number] 2.16.840.1.095306.3.579.2.174 1943 Unknown [id number] 2.16.840.1.609817.3.579.2.174 1943 Unknown [id number] 2.16.840.1.418369.3.579.2.174 1943 Unknown [id number] 2.16.840.1.528072.3.579.2.174 1943 Unknown [id number] 2.16.840.1.550043.3.579.2.174 1943 Unknown [id number] 2.16.840.1.725250.3.579.2.174 1943 Unknown [id number] 2.16.840.1.674269.3.579.2.174 1943 Unknown [id number] 2.16.840.1.073338.3.579.2.174 1943 Unknown [id number] 2.16.840.1.224780.3.579.2.174 1943 Unknown [id number] 2.16.840.1.289916.3.579.2.174 1943 Unknown [id number] 2.16.840.1.404437.3.579.2.903 Unknown Social History Date Type Detail Facility Start: 03-17-2018 End: 08-06-2022 Tobacco smoking status NHIS Former smoker [place] Start: 03-30-1962 End: 03-30-2012 History of tobacco use Current smoker [place] Start: 03-17-2018 End: 08-17-2023 Cigarettes smoked current (pack per day) - Reported [place] Start: 03-17-2018 End: 08-17-2023 Alcohol intake No [place], [place] Start: 1945 Sex Assigned At Not on file [place] Start: 03-16-2019 End: 08-06-2022 Tobacco use and exposure Never used [place] Start: 03-16-2019 End: 03-20-2021 Alcohol intake Current non-drinker of alcohol (finding) [place] Start: 11-01-2021 End: 08-17-2023 Alcohol intake Current drinker of alcohol (finding) [facility] [employer] Phone: Start: 11-01-2021 History SDOH [facility] Tobacco smoking stat [facility] Tobacco smoking consumption unknown [facility] Start: 03-30-1962 End: 03-30-2012 History of tobacco use Cigarette Smoker [facility] Start: 01-31-2022 End: 02-11-2022 Alcohol intake Ex-drinker (finding) [facility] Start: 01-21-2022 End: 02-11-2022 Exposure to SARS-CoV-2 (event) Not sure [facility] Start: 04-08-2023 Alcohol Comment Caffeine intak e: 1 cups per day coffee [facility] Medical Equipment Procedure Code Equipment Code Equipment Origin al Text Equipment Identifier Dates Closure 6fr [employer] - [id number] [facility] Start: 01-18-2022 Clinical Notes 11-01-2021 to 04-06-2024 Jayro De Leon MD - 04/06/2024 10:00 AM [employer] RN - 02/26/2022 2:58 PM [employer] RN - 02/20/2022 9:40 AM [employer] RN - 02/06/2022 1:09 PM EDT Note Date & Type Note Facility 04-06-2024 History of Present illness Narrative Images from the original note were not included. Patient ID: Luciana Medina is a 78 y.o. female who presents for: Hypertension Patient is here for follow-up of elevated blood pressure. She is exercising and is adherent to a low-salt diet. Blood pressure is well controlled at home. Cardiac symptoms: none. Patient denies chest pain, dyspnea, irregular heart beat, lower extremity edema, and palpitations. Cardiovascular risk factors: advanced age (older than 55 for men, 65 for women), dyslipidemia, and hypertension. Use of agents associated with hypertension: thyroid hormones. History of target organ damage: none. Hyperlipidemia Pt who presents for follow-up of dyslipidemia. A repeat fasting lipid profile was not done. The patient does not use medications that may worsen dyslipidemias (corticosteroids, progestins, anabolic steroids, diuretics, beta-blockers, amiodarone, cyclosporine, olanzapine). Exercise: daily. Pt here today to review his/hers thyroid labs and any medication changes needed. Fatigue: Absent Weight Gain: Absent Inability to lose weight: Absent Hair Changes: Present Review of Systems Constitutional: Negative for activity change and fatigue. Respiratory: Negative for cough, shortness of breath and wheezing. Cardiovascular: Negative for chest pain, palpitations and leg swelling. Neurological: Negative for light-headedness and headaches. Objective The patient is pleasant and in no acute distress. The neck is supple and trachea is midline. No masses are appreciated. The heart is regular rate and rhythm without S3, S4. No murmur. The patient has normal respiratory pattern. The breath sounds are symmetrical without evidence of rhonchi or rales. No wheezing. The skin is warm and dry. The lower extremities have trace edema. The patient has good eye contact and speech is clear. Appropriate affect. Visit Vitals BP 120/68 Pulse 83 Ht 5' 2.5 Wt 133 lb SpO2 97% BMI 23.94 kg/m OB Status Postmenopausal Smoking Status Former BSA 1.63 m No Known Allergies Current Outpatient Medications on File Prior to Visit Medication Sig Dispense Refill acetaminophen (Tylenol) 500 MG tablet Take 2 tablets by mouth if needed for mild pain. amoxicillin (Amoxil) 500 MG capsule Take 4 capsules by mouth See administration instructions. 4 capsules 1/2 hour prior to procedure and 2 capsules after procedure aspirin 81 MG EC tablet Take 1 tablet (81 mg) by mouth in the morning. atorvastatin (Lipitor) 40 MG tablet Take 1 tablet (40 mg) by mouth Daily 90 tablet 1 calcium citrate 1040 MG tablet Take 1 tablet by mouth in the morning. cholecalciferol (Vitamin D-3) 250 MCG (12353 UT) capsule Take 1 capsule by mouth in the morning. docusate sodium (Colace) 50 MG capsule Take 1 capsule by mouth if needed for constipation. latanoprost (Xalatan) 0.005 % ophthalmic solution Administer 1 drop into both eyes at bedtime. levothyroxine (Synthroid, Levoxyl) 50 MCG tablet Take 1 tablet (50 mcg) by mouth in the morning. Take before meals. 90 tablet 3 losartan (Cozaar) 25 MG tablet Take 1 tablet (25 mg) by mouth Daily 90 tablet 1 meclizine (Antivert) 25 MG tablet Take 25 mg by mouth 3 (three) times a day as needed for dizziness Menaquinone-7 (Vitamin K2) 100 MCG capsule Take 1 capsule by mouth 1 (one) time each day metoprolol succinate XL (Toprol-XL) 25 MG 24 hr tablet Take 0.5 tablets (12.5 mg) by mouth Daily 45 tablet 1 Multiple Vitamins-Minerals (Multiple Vitamins/Womens) tablet Take 1 tablet by mouth Daily No current facility-administered medications on file prior to visit. 1. Primary hypertension (CMS/HCC) Chronic problem, stable, to goal, continue current treatment. Encouraged walking program. - losartan (Cozaar) 25 MG tablet; Take 1 tablet (25 mg) by mouth Daily Dispense: 90 tablet; Refill: 1 - metoprolol succinate XL (Toprol-XL) 25 MG 24 hr tablet; Take 0.5 tablets (12.5 mg) by mouth Daily Dispense: 45 tablet; Refill: 1 2. Hypertensive nephropathy (CMS/HCC) Chronic problem demonstrating end-organ damage 3. Stage 3a chronic kidney disease (HCC) (CMS/HCC) Chronic problem defining the hypertensive nephropathy. Laboratory evaluation will be performed again in June when she sees her [facility] physician. 4. Microalbuminuria Chronic problem, defining an aspect the nephropathy, with significant risk, uncertain progression requiring longitudinal monitoring, and moderate decision making. Microalbuminuria describes a moderate increase in the level of urine albumin. Normally, the kidneys filter albumin, so if the kidney leaks small amounts of albumin into the urine then it is a indicator of chronic kidney disease. Microalbuminuria is an independent indicator of increased cardiovascular risk among individuals and therefore can be used for risk stratification for cardiovascular disease. 5. Mixed dyslipidemia (CMS/HCC) In prescribing a renewal to their current medication, consideration of the following encompasses moderate decision making; the current prescriptions and supplements, the current allergies and medication intolerances, current medical conditions, and potential drug interactions. Any changes to risks, benefits, and reason for renewing their current medication due to the above were discussed. The patient was given a chance to ask questions today and all questions were answered. The patient is to contact us if any other questions arise or if any problems occur. (Utilizing the original 1994/1996 guidelines or the 2020 office/outpatient code guidelines for selecting the level of E/M service, In both sets of guidelines, prescription drug management appears in the moderate medical decision making (MDM) row. Neither the original guidelines nor the new guidelines state that a new prescription or change is needed in order to credit prescription drug management) - atorvastatin (Lipitor) 40 MG tablet; Take 1 tablet (40 mg) by mouth Daily Dispense: 90 tablet; Refill: 1 6. Acquired hypothyroidism (CMS/HCC) Last TSH from earlier this year in the therapeutic range. - levothyroxine (Synthroid, Levoxyl) 50 MCG tablet; Take 1 tablet (50 mcg) by mouth in the morning. Take before meals. Dispense: 90 tablet; Refill: 3 7. Former cigarette smoker Continue nonsmoking documented in this encounter [facility] 02-26-2022 History of Present illness Narrative Per patient's daughter Rigo Armijo, I m sending this email to let you know that Mom is gonna cancel her appointment with Dr. Lucio for July and also her ECHO. She will be following up with Dr Meneses for her ECHO and she is going to see him in March. Thanks for all that you have done and for reaching out to me also during all of this. Have a great day. Appointments cancelled. Pt to be referred back to [facility] per Dr Brown's discretion. documented in this encounter [facility] 02-20-2022 History of Present illness Narrative [facility] note-pt's case discussed at heart team meeting today, recommendations made by team to continue to monitor pt, mitral stenosis deemed NOT severe, mitral valve gradients similar to echo reports from . Due to minimal pt reported symptoms, per team, continue to monitor and reassess pt and echo in 6 months. Attempted to call pt to discuss, unsuccessful, left VM requesting pt call office back to discuss. Scheduling to contact pt to schedule echo in 6 months. documented in this encounter [facility] 02-06-2022 History of Present illness Narrative [facility] note-spoke with Mira at [facility], requested pt's most recent transthoracic echo and any prior echo (between 2009-present) be mailed to our office for review per Dr Lucio. Mira reports this will be completed today. documented in this encounter [facility] 02-06-2022 History of Present illness Narrative [facility] note-pt's case discussed at heart team meeting in [place]. Recommendations made by team to repeat POOL testing here at [facility] to further assess mitral valve severity, and attempt to obtain prior echos done at [facility]. Called pt, reviewed recommendations, pt aware and agreeable to plan. Will call pt once POOL scheduled with details. documented in this encounter [facility] 02-01-2022 History of Present illness Narrative [facility]-pt called to notify Dr. Lucio reviewed previous POOL from [facility], however would like pt to have echo here as well. Informed pt that there is an echo appt available this coming Sunday 02/04 at 9am. Pt agreeable to appt. Verified echo will be done a MOB, verbalizes understanding and denies any further questions. 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 Chief Complaint Patient presents with Follow-up No concerns today History of Present Illness 76 years old female status post open heart surgery in 2011 consistent with the mitral valve replacement with a 27 mm Hernandez mitral valve prosthesis as well as single-vessel bypass to the right coronary artery with the saphenous vein History of hypertension History of pacemaker implantation Patient has been complaining of progressive fatigue and tiredness She denies any significant dyspnea on exertion she denies exertional chest pain lightheadedness syncope or presyncope or palpitation, she denies leg edema in view of her symptoms she was evaluated by 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 Ramus: mild plaque disease Cx: mild plaque disease RCA: large and occluded in mid-portion with PDA and PV filling from SVG SVG to PDA of RCA: widely patent LV: EF 55% with basilar akinesis from previous NV Bioprosthetic Hernandez #25 bioprosthetic MV has severe stenosis with MVA 1.1 cm2 Recommendations: Have consulted Structural heart for MV replacement. I have been asked to see patient for evaluation and render surgical opinion in reference to treatment Assessment and Plan Met [id number] with patient At the time of my evaluation patient is neurologically intact not in acute distress no short of breath no signs of congestive failure chest pain oriented x3 able to understand explanation able to ask questions understand my answers Family member, daughter is present at the time of my evaluation Patient is aware of his clinical condition for which being evaluated today Have stressed the severity of her prosthetic mitral valve stenosis explained to her that this condition will only progress to the point severe heart failure and there is no medication that can stop or mitigate the progression The only way to stop the process is to proceed with replacement of the severely stenotic mitral valve prosthesis in addition to possible revascularization of coronary arteries via, reentry into the chest open heart surgery versus TMVR Therapeutic options were discussed consistent with Open heart surgery via midline sternotomy, reentry into the chest status post previous midline sternotomy incision With the replacement of the stenotic mitral valve prosthesis plus minus bypass Potential risk for mortality and intraoperative complications, (such as but not limited to bleeding infection, heart lungs or kidney failure requiring machines for support, stroke, heart rate irregularities requiring medications or pacemakers, blood and blood product transfusions were discussed), specifically in this case the estimated mortality risk was quoted, statistically to be around 5 to 6% and the estimated combined morbidity mortality around 20% is generated by a calculated risk score based on STS criteria In my opinion the statistical quotations are extremely underestimating the risk and potential complication indeed I feel that for elective surgery the risk and potential complications in this case would be much higher above, this has been explained to patient and daughter very clearly TMVR Patient understand that TMVR approach is a very safe and successful therapeutic approach Patient has also been made aware of the very rare possibility of major complications during the TMVR which if occur will require emergency open heart surgery via midline sternotomy, reentry into the chest status post prior sternotomy, and in that case the risk of dying would be greater than 50% and if he survives the risk of major complications might lead to a very prolonged hospitalization or recovery and a compromised lifestyle for a chronic basis Both patient and daughter fully understand all my explanations at this point today wish to proceed with the TMVR option and they wish also to have surgical backup in case of potential complications understanding the mortality morbidity risks involved with this approach Patient and family have been made aware that the case will be discussed in multidisciplinary meeting this coming Friday based on the final recommendation structural service will communicate with them I will defer at this point medical follow-up and therapeutic adjustment as necessary to primary cardiology and PCP Past Medical History: Diagnosis Date Encounter for follow-up for aortic valve replacement Myocardial infarction (HCC) Past Surgical History: Procedure Laterality Date CARDIAC CATHETERIZATION N/A 01/18/2022 Procedure: LEFT AND RIGHT HEART CATH; Surgeon: Paty Brown MD; Location: [facility] [employer] [facility]; Service: Cardiovascular Current Outpatient Medications on File Prior to Visit Medication Sig Dispense Refill amoxicillin (AMOXIL) 500 MG capsule Take 500 mg by mouth as needed . aspirin 81 mg chewable tablet Chew and Swallow 81 mg daily . atorvastatin (LIPITOR) 40 MG tablet Take 40 mg by mouth daily . calcium citrate-vitamin D3 500 mg-12.5 mcg /5 gram Powd Take by mouth . cholecalciferol, vitamin D3, 50 mcg (2,000 unit) cap Take by mouth . docusate sodium (COLACE) 100 MG capsule Take 100 mg by mouth daily as needed . levothyroxine (SYNTHROID, LEVOTHROID) 50 MCG tablet Take 50 mcg by mouth daily . losartan (COZAAR) 25 MG tablet Take 25 mg by mouth daily . meclizine (ANTIVERT) 50 MG tablet Take 25 mg by mouth Three times daily as needed . metoprolol succinate (TOPROL-XL) 25 MG 24 hr tablet 12.5 mg daily . Current Facility-Administered Medications on File Prior to Visit Medication Dose Route Frequency Provider Last Rate Last Admin [COMPLETED] iopamidoL (ISOVUE-370) 76 % injection 100 mL 100 mL Intravenous Once in imaging Alvaro Lucio MD 100 mL at 01/30/22 1310 [COMPLETED] sodium chloride (PF) (NS) 0.9 % contrast line flush 10 mL 10 mL Intravenous Once in imaging Alvaro Lucio MD 10 mL at 01/30/22 1311 And [COMPLETED] sodium chloride (PF) (NS) 0.9 % contrast line flush 80 mL 80 mL Intravenous Once in imaging Alvaro Lucio MD 80 mL at 01/30/22 1311 No Known Allergies Family History Problem Relation Age of Onset Heart disease Father Social History Socioeconomic History Marital status: Tobacco Use Smoking status: Former Types: Cigarettes Quit date: 2011 Years since quittin.5 Smokeless tobacco: Never Vaping Use Vaping Use: Never used Substance and Sexual Activity Alcohol use: Not Currently Drug use: Never ROS See HPI for pertinent positive all other systems were reviewed and negative BP 136/83 (BP Location: Left arm, Patient Position: Sitting, BP Cuff Size: Adult) Pulse 81 Temp 97.9 F (36.6 C) Ht 5' 2 Wt 59.9 kg (132 lb) SpO2 96% BMI 24.14 kg/m Physical Exam Constitutional: General: She is not in acute distress. Appearance: Normal appearance. She is normal weight. She is not ill-appearing, toxic-appearing or diaphoretic. HENT: Head: Normocephalic and atraumatic. Right Ear: External ear normal. Left Ear: External ear normal. Nose: Nose normal. No congestion or rhinorrhea. Mouth/Throat: Mouth: Mucous membranes are moist. Pharynx: Oropharynx is clear. No oropharyngeal exudate or posterior oropharyngeal erythema. Eyes: General: No scleral icterus. Right eye: No discharge. Left eye: No discharge. Conjunctiva/sclera: Conjunctivae normal. Pupils: Pupils are equal, round, and reactive to light. Neck: Vascular: No carotid bruit. Cardiovascular: Rate and Rhythm: Normal rate and regular rhythm. Pulses: Normal pulses. Heart sounds: Murmur heard. No friction rub. No gallop. Pulmonary: Effort: Pulmonary effort is normal. Breath sounds: No stridor. No wheezing, rhonchi or rales. Chest: Chest wall: No tenderness. Abdominal: General: Abdomen is flat. Palpations: Abdomen is soft. There is no mass. Tenderness: There is no abdominal tenderness. There is no right CVA tenderness or left CVA tenderness. Musculoskeletal: General: No swelling, tenderness, deformity or signs of injury. Normal range of motion. Cervical back: Normal range of motion and neck supple. No rigidity or tenderness. Right lower leg: No edema. Left lower leg: No edema. Lymphadenopathy: Cervical: No cervical adenopathy. Skin: General: Skin is warm. Coloration: Skin is not jaundiced or pale. Findings: No bruising, erythema, lesion or rash. Neurological: General: No focal deficit present. Mental Status: She is alert and oriented to person, place, and time. Mental status is at baseline. Cranial Nerves: No cranial nerve deficit. Sensory: No sensory deficit. Motor: No weakness. Coordination: Coordination normal. Gait: Gait normal. Psychiatric: Mood and Affect: Mood normal. Behavior: Behavior normal. Thought Content: Thought content normal. Judgment: Judgment normal. No results found for: WBC, HGB, HCT, MCV, PLT, HGBA1C, GLUCOSE, CALCIUM, NA, K, CL, BUN, CREATININE, APTT, INR, PTT, LABPROT, ALBUMIN] Problem List Items Addressed This Visit None documented in this encounter [facility] 11-01-2021 History of Present illness Narrative Patient discharged to home with daughter. Patient ambulatory and has all belongings. Inpatients must meet criteria 1 through 7. 1. Minimum 30 minutes after last dose of sedative medication, minimum 120 minutes after last dose of reversal agent. Yes 2. Systolic BP stable within 20 mmHg for 30 minutes & systolic BP between 90 & 180 or within 10 mmHg of baseline. Yes 3. Pulse between 60 and 100 or within 10 bpm of baseline. Yes 4. Spontaneous respiratory rate >/= 10 per minute. Yes 5. SaO2 >/= 95 or >/= baseline. Yes 6. Able to cough and swallow or return to baseline function. Yes 7. Alert and oriented or return to baseline mental status. Yes 8. Demonstrates controlled, coordinated movements, ambulates with steady gait, or return to baseline activity function. Yes 9. Minimal or no pain or nausea, or at a level tolerable and acceptable to patient. Yes 10. Takes and retains oral fluids as allowed. Yes 11. Procedural / perioperative site stable. Minimal or no bleeding. Yes 12. If GI endoscopy procedure, minimal or no abdominal distention or passing flatus. N/A 13. Written discharge instructions and emergency telephone number provided. Yes 14. Accompanied by a responsible adult. Yes Adult patient discharged from facility without responsible person meets above criteria plus the following: a) remains awake without stimulus for 30 minutes b) oriented appropriate for age c) all vital signs stable d) no significant risk of losing protective reflexes e) able to maintain pre-procedure mobility without assistance f) no nausea or dizziness g) transportation arrangements that do not require patient to operate motor Vehicle. N/A Discharge instructions given to patient and patient's daughter, both voice understanding. Instructed patient on policy and procedure of a POOL. 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, unspecified vessel or lesion type Vitamin D deficiency disease Unspecified vitamin D deficiency Essential (primary) hypertension Unspecified essential hypertension Mitral valve insufficiency, unspecified etiology documented in this encounter [employer] Phone: evaluation note* Diagnosis H/O mitral valve replacement Heart valve replaced by other means documented in this encounter [employer] Phone: evaluation note* Diagnosis Pacemaker Cardiac pacemaker in 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, unspecified vessel or lesion type Vitamin D deficiency disease Unspecified vitamin D deficiency Essential (primary) hypertension Unspecified essential hypertension H/O mitral valve replacement Heart valve replaced by other means documented in this encounter [employer] Phone: evaluation note* Diagnosis Pacemaker Cardiac pacemaker in 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, unspecified vessel or lesion type Vitamin D deficiency disease Unspecified vitamin D deficiency Essential (primary) hypertension Unspecified essential hypertension H/O mitral valve replacement Heart valve replaced by other means documented in this encounter [employer] Phone: evaluation note* Diagnosis Severe mitral stenosis by prior echocardiogram- Primary Mitral stenosis H/O mitral valve replacement Heart valve replaced by other means Mitral regurgitation Mitral valve disorders documented in this encounter [employer] Phone: evaluation note* Diagnosis Stenosis of prosthetic mitral valve, sequela- [facility] Stenosis of prosthetic mitral valve, initial encounter- [facility] Diagnosis Stenosis of prosthetic mitral valve, 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 [facility] Diagnosis Other nonrheumatic mitral valve disorders- Primary Mitral valve insufficiency, unspecified etiology [facility] Diagnosis Mitral valve insufficiency, unspecified etiology- Primary [facility] Diagnosis Coronary artery disease involving [place] heart without angina pectoris, unspecified vessel or lesion type Essential (primary) hypertension Unspecified essential hypertension Pacemaker Cardiac pacemaker in situ H/O mitral valve replacement Heart valve replaced by other means documented in this encounter [employer] Phone: [employer] note* Diagnosis Coronary artery disease involving [place] heart without angina pectoris, unspecified vessel or lesion type Essential (primary) hypertension Unspecified essential hypertension Pacemaker Cardiac pacemaker in situ H/O mitral valve replacement Heart valve replaced by other means documented in this encounter [employer] Phone: evaluation note* Diagnosis Coronary artery disease involving [place] heart without angina pectoris, unspecified vessel or lesion type Essential (primary) hypertension Unspecified essential hypertension Pacemaker Cardiac pacemaker in situ H/O mitral valve replacement Heart valve replaced by other means documented in this encounter [employer] Phone: evaluation note* Diagnosis Automatic implantable cardioverter-defibrillator in 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, unspecified vessel or lesion type Essential (primary) hypertension Unspecified essential hypertension Vitamin D deficiency disease Unspecified vitamin D deficiency H/O mitral valve replacement Heart valve replaced by other means [email or web address] Diagnosis Primary hypertension (CMS/HCC) Unspecified essential hypertension Hypertensive nephropathy (CMS/HCC) Unspecified hypertensive kidney disease with chronic kidney disease stage I through stage IV, or unspecified Stage 3a chronic kidney disease (HCC) ([facility]/HCC) Microalbuminuria Proteinuria Mixed dyslipidemia (CMS/HCC) Acquired hypothyroidism ([facility]/HCC) Unspecified hypothyroidism Former cigarette smoker Personal history of tobacco use, presenting hazards to health documented in this encounter [facility]* Diagnosis Shortness of breath documented in this encounter [facility] note* Diagnosis Chest pain, unspecified type SOB (shortness of breath) Shortness of breath Aneurysm (HCC) Aneurysm of unspecified site Essential (primary) hypertension Unspecified essential hypertension Chest pain, cardiac Chest pain, unspecified [facility] Diagnosis Chest pain, unspecified type SOB (shortness of breath) Shortness of breath Aneurysm (HCC) Aneurysm of unspecified site documented in this encounter [facility] note* Diagnosis Shortness of breath documented in this encounter [facility] note* Diagnosis Bilateral carotid bruits documented in this encounter [facility] note* Diagnosis Automatic implantable cardioverter-defibrillator in 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, unspecified vessel or lesion type Essential (primary) hypertension Unspecified essential hypertension Vitamin D deficiency disease Unspecified vitamin D deficiency H/O mitral valve replacement Heart valve replaced by other means Pacemaker Cardiac pacemaker in situ documented in this encounter [facility] note* Diagnosis Chest pain, unspecified type SOB (shortness of breath) Shortness of breath Essential (primary) hypertension Unspecified essential hypertension Coronary artery disease involving [place] heart without angina pectoris, unspecified vessel or lesion type Acute cough documented in this encounter [facility] note* Diagnosis Acute cough [facility] instructions* Instructions* Kita Maravilla RN - 11/01/2021 Images from the original note were not included. Sedation for a Medical Procedure: POOL after-care Instructions Your Care Instructions For a minor procedure, you will get a sedative to help you relax. This drug will make you sleepy. It is usually given in a vein (by IV). A spray was also used to numb the throat. Your throat may feel may feel sore. Common side effects from sedation: You will feel sleepy. Rest until the sedation has worn off. Nausea and vomiting is common and usually does not last long. Feeling tired. Follow-up care is a landin part of your treatment and safety. Be sure to make and go to all appointments, and call your doctor if you are having problems. It's also a good idea to know your test results and keep a list of the medicines you take. How can you care for yourself at home? Activity Don't do anything for 24 hours that requires attention to detail or until the effects of sedation completely wear off. Do not drive or operate any machinery until the medicine wears off and you can think clearly and react easily. Do not drink alcohol for 24 hours after procedure. Rest when you feel tired. Getting enough sleep will help you recover. Diet Drink plenty of fluids (unless your doctor tells you not to). Also, try to eat just soft foods for next few days until throat irritation is gone. Don't drink alcohol for 24 hours. Medicines You may use Cepacol lozenges or sucrets for the next few days until throat feels better. Be safe with medicines. Read and follow all instructions on the label. If the doctor gave you a prescription medicine for pain, take it as prescribed. If you are not taking a prescription pain medicine, ask your doctor if you can take an [id number] medicine. If you think your pain medicine is making you sick to your stomach: Take your medicine after meals (unless your doctor has told you not to). Ask your doctor for a different pain medicine. When should you call for help? Call 911 anytime you think you may need emergency care. For example, call if: You have chest pain or pressure. This may occur with: Sweating. Shortness of breath. Nausea or vomiting. Pain that spreads from the chest to the neck, jaw, or one or both shoulders or arms. A fast or uneven pulse. After calling 911, the natural gas treating unit operator may tell you to chew 1 adult-strength or 2 to 4 low-dose aspirin. Wait for an ambulance. Do not try to drive yourself. You have signs of a stroke. These may include: Sudden numbness, paralysis, or weakness in your face, arm, or leg, especially on only one side of your body. New problems with walking or balance. Sudden vision changes. Drooling or slurred speech. New problems speaking or understanding simple statements, or feeling confused. A sudden, severe headache that is different from past headaches. You vomit blood or what looks like coffee grounds. You pass maroon or very bloody stools. You passed out (lost consciousness). Call your doctor now or seek immediate medical care if: You feel dizzy or lightheaded, or you feel like you may faint. Your heart rate becomes irregular. You have shortness of breath. You have any unusual bleeding, such as: Bruises or blood spots under the skin. A nosebleed that you cannot stop. Bleeding gums when you brush your teeth. Blood in your urine. Vaginal bleeding when you are not having your period, or heavy period bleeding. Your stools are black and tarlike or have streaks of blood. Watch closely for any changes in your health, and be sure to contact your doctor if: You do not get better as expected. Where can you learn more? Go to [email or web address] and sign in to your [employer] account. Enter G817 in the Search Health Information box to learn more about Sedation for a Medical Procedure: Care Instructions. If you do not have an account, please click on the Sign Up Now link. [employer]. Care instructions adapted under license by [employer]. This care instruction is for use with your licensed healthcare professional. If you have questions about amedical condition or this instruction, always ask your healthcare professional. [employer] disclaims any warranty or liability for your use of this information. Content Version: [id number]; Current as of: March 08, 2014 [facility] Phone: Summary Purpose Family History No Family History Records FoundNo Family History Records FoundNo Family History Records FoundNo Family History Records FoundNo Family History Records FoundNo Family History Records FoundNo Family History Records Found Advance Directives No Advanced Directives Records FoundDocuments on File Type Date Recorded Patient Oral And Maxillofacial Pathologist Expl anation Advance Directives and Living Will Power of Forest Engineer Documents on File Type Date Recorded Patient Oral And Maxillofacial Pathologist Expl anation ACP-Advance Directive ACP-Power of Forest Engineer Documents on File Type Date Recorded Patient Oral And Maxillofacial Pathologist Expl anation ACP-Advance Directive ACP-Power of Forest Engineer Documents on File Type Date Recorded Patient Oral And Maxillofacial Pathologist Expl anation Advance Directives and Living Will Power of Forest Engineer Latest Code Status on File Code Status Date Activated Date Inactivated Comments Full Code 11/01/2021 8:58 AM Full Code 11/01/2021 7:32 AM 11/01/2021 8:58 AM Latest Code Status on File Code Status Date Activated Date Inactivated Comments Full Code 01/18/2022 7:11 AM Latest Code Status on File Code Status Date Activated Date Inactivated Comments Full Code 01/18/2022 7:11 AM 01/18/2022 3:15 PM Latest Code Status on File Code Status Date Activated Date Inactivated Comments Full Code 01/18/2022 7:11 AM 01/18/2022 3:15 PM Documents on File Type Date Recorded Patient Oral And Maxillofacial Pathologist Expl anation Advance Directives and Living Will 02/11/2022 Power of Forest Engineer 02/11/2022 POA Latest Code Status on File Date Activated Date Inactivated Comments 01/18/2022 7:11 AM 01/18/2022 3:15 PM Documents on File Type Date Recorded Patient Oral And Maxillofacial Pathologist Expl anation Advance Directives and Living Will 02/11/2022 Power of Forest Engineer 02/11/2022 POA Latest Code Status on File Date Activated Date Inactivated Comments 01/18/2022 7:11 AM 01/18/2022 3:15 PM Latest Code Status on File Code Status Date Activated Date Inactivated Comments Full Code 11/01/2021 8:58 AM 11/01/2021 11:37 AM Full Code 11/01/2021 7:32 AM 11/01/2021 8:58 AM Latest Code Status on File Code Status Date Activated Date Inactivated Comments Full Code 11/01/2021 8:58 AM 11/01/2021 11:37 AM Latest Code Status on File Code Status Date Activated Date Inactivated Comments Full Code 11/01/2021 8:58 AM 11/01/2021 11:37 AM Code Status History Code Status Date Activated Date Inactivated Comments Full Code 11/01/2021 7:32 AM 11/01/2021 8:58 AM Documents on File Type Date Recorded Patient Oral And Maxillofacial Pathologist Expl anation Power of Forest Engineer 11/19/2023 12:51 PM 2014 Power of Forest Engineer Advance Directives and Living Will 11/30/2022 9:50 AM 2014-09-13 Living Wi ll Date Activated Date Inactivated Comments 11/01/2021 8:58 AM 11/01/2021 11:37 AM Date Activated Date Inactivated Comments 11/01/2021 7:32 AM 11/01/2021 8:58 AM Date Activated Date Inactivated Comments 11/01/2021 8:58 AM 11/01/2021 11:37 AM Date Activated Date Inactivated Comments 11/01/2021 7:32 AM 11/01/2021 8:58 AM Assessments Diagnosis Automatic implantable cardioverter-defibrillator in situ Mitral valve insufficiency, unspecified etiology H/O mitral valve replacement Heart valve replaced by other means Coronary artery disease involving [place] heart without angina pectoris, unspecified vessel or lesion type Vitamin D deficiency disease Unspecified vitamin D deficiency [place], old Old myocardial infarction S/P CABG (coronary artery bypass graft) Postsurgical aortocoronary bypass status Vitamin D deficiency Unspecified vitamin D deficiency Fatigue, unspecified type Diagnosis Pacemaker Cardiac pacemaker in situ Mitral valve insufficiency, unspecified etiology Coronary artery disease involving [place] heart without angina pectoris, unspecified vessel or lesion type Vitamin D deficiency disease Unspecified vitamin D deficiency Essential (primary) hypertension Unspecified essential hypertension Fatigue, unspecified type Diagnosis Pacemaker Cardiac pacemaker in situ Mitral valve insufficiency, unspecified etiology Coronary artery disease involving [place] heart without angina pectoris, unspecified vessel or lesion type Vitamin D deficiency disease Unspecified vitamin D deficiency Diagnosis Pacemaker Cardiac pacemaker in situ Mitral valve insufficiency, unspecified etiology Coronary artery disease involving [place] heart without angina pectoris, unspecified vessel or lesion type Vitamin D deficiency disease Unspecified vitamin D deficiency Diagnosis Automatic implantable cardioverter-defibrillator in situ Mitral valve insufficiency, unspecified etiology H/O mitral valve replacement Heart valve replaced by other means Coronary artery disease involving [place] heart without angina pectoris, unspecified vessel or lesion type Vitamin D deficiency disease Unspecified vitamin D deficiency NV, old Old myocardial infarction S/P CABG (coronary artery bypass graft) Postsurgical aortocoronary bypass status Vitamin D deficiency Unspecified vitamin D deficiency Fatigue, unspecified type Diagnosis Automatic implantable cardioverter-defibrillator in situ Mitral valve insufficiency, unspecified etiology H/O mitral valve replacement Heart valve replaced by other means Coronary artery disease involving [place] heart without angina pectoris, unspecified vessel or lesion type Vitamin D deficiency disease Unspecified vitamin D deficiency [place], old Old myocardial infarction S/P CABG (coronary artery bypass graft) Postsurgical aortocoronary bypass status Vitamin D deficiency Unspecified vitamin D deficiency Fatigue, unspecified type Reason for Referral Status Reason Specialty Diagnoses / Procedures Referre d By Contact Referred To Contact Open Cardiology Diagnoses Pacemaker Mitral valve insufficiency, unspecified etiology Coronary artery disease involving [place] heart without angina pectoris, unspecified vessel or lesion type Vitamin D deficiency disease Procedures EKG 12 Lead Pavel Brown MD [address] [place] [id number] Status Reason Specialty Diagnoses / Procedures Referre d By Contact Referred To Contact Open Cardiology Diagnoses Automatic implantable cardioverter-defibrill ator in situ Mitral valve insufficiency, unspecified etiology H/O mitral valve replacement Coronary artery disease involving [place] heart without angina pectoris, unspecified vessel or lesion type Vitamin D deficiency disease NV, old S/P CABG (coronary artery bypass graft) Vitamin D deficiency Fatigue, unspecified type Procedures EKG 12 Lead Pavel Brown MD [address] [place] [address] [id number] Status Reason Specialty Diagnoses / Procedures Referre d By Contact Referred To Contact Open Cardiology Diagnoses Automatic implantable cardioverter-defibrill ator in 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, unspecified vessel or lesion type Vitamin D deficiency disease Essential (primary) hypertension Mitral valve insufficiency, unspecified etiology Procedures EKG 12 Lead Pavel Brown MD [address] [place] [id number] Specialty Diagnoses / Procedures Referred By Gilma owens Referred To Contact Cardiology Diagnoses H/O mitral valve replacement Procedures ECHO Complete 2D W Doppler W Color Pavel Brown MD [address] [place] [id number] Referral ID Status Reason Start Date Expiration Date Visits Re quested Visits Authorized [id number] Closed 09/17/2021 09/17/2022 1 1 Specialty Diagnoses / Procedures Referred By Gilma owens Referred To Contact Cardiology Diagnoses H/O mitral valve replacement Z95.2 (ICD-10-CM) - H/O mitral valve replacement Procedures Echo transesophageal (POOL) MS ECHO TRANSESOPHAG R-T 2D W/PRB IMG ACQUISJ I&R [id number] - MS ECHO TRANSESOPHAG R-T 2D W/PRB IMG ACQUISJ I&R Pavel Brown MD [address] [place] [id number] Referral ID Status Reason Start Date Expiration Date V isits Requested Visits Authorized [id number] Authorized 10/23/2021 10/23/2022 1 1 Specialty Diagnoses / Procedures Referred By Contac t Referred To Contact Radiology Diagnoses Stenosis of prosthetic mitral valve, sequela Procedures CT TMVR Without Hydration Alvaro Lucio MD [address] [place] [address] Referral ID Status Reason Start Date Expiration Date V isits Requested Visits Authorized [id number] New Request 01/18/2022 01/18/2023 1 1 Specialty Diagnoses / Procedures Referred By Contac t Referred To Contact Cardiothoracic Surgery Diagnoses Stenosis of prosthetic mitral valve, sequela Alvaro Lucio MD [address] [place] [address] Hay Causey MD [address] [place] [address] Referral ID Status Reason Start Date Expiration Date Visits Requested Visits Authorized [id number] Pending Review Specialty Services Required/Pat ient's Best Interest 01/18/2022 01/18/2023 1 1 Specialty Diagnoses / Procedures Referred By Contac t Referred To Contact Cardiology Diagnoses Stenosis of prosthetic mitral valve, sequela Other nonrheumatic mitral valve disorders Procedures Echocardiogram transesophageal Alvaro Lucio MD [address] [place] [address] Referral ID Status Reason Start Date Expiration Date V isits Requested Visits Authorized [id number] Authorized 02/06/2022 02/06/2023 1 1 Specialty Diagnoses / Procedures Referred By Contac t Referred To Contact Cardiology Diagnoses Other nonrheumatic mitral valve disorders Mitral valve insufficiency, unspecified etiology Procedures Echocardiogram complete Alvaro Lucio MD [address] [place] [address] Referral ID Status Reason Start Date Expiration Date V isits Requested Visits Authorized [id number] New Request 08/23/2022 08/23/2023 1 1 Specialty Diagnoses / Procedures Referred By Contac t Referred To Contact Cardiology Diagnoses Mitral valve insufficiency, unspecified etiology Procedures Echocardiogram complete Alvaro Lucio MD [address] [place] [address] Referral ID Status Reason Start Date Expiration Date V isits Requested Visits Authorized [id number] Pending Review 08/23/2022 08/23/2023 1 1 Specialty Diagnoses / Procedures Referred By Contac t Referred To Contact Cardiology Diagnoses Coronary artery disease involving [place] heart without angina pectoris, unspecified vessel or lesion type Essential (primary) hypertension Pacemaker H/O mitral valve replacement Procedures ECHO Complete 2D W Doppler W Color Pavel Brown MD [address] [place] [address] Referral ID Status Reason Start Date Expiration Date Visits Re quested Visits Authorized [id number] Closed 07/08/2022 07/08/2023 1 1 Specialty Diagnoses / Procedures Referred By Contac t Referred To Contact Cardiology Diagnoses Coronary artery disease involving [place] heart without angina pectoris, unspecified vessel or lesion type Essential (primary) hypertension Pacemaker H/O mitral valve replacement Procedures EKG 12 Lead Pavel Brown MD [address] [place] [address] Referral ID Status Reason Start Date Expiration Date Visits Re quested Visits Authorized [id number] Open 08/27/2022 08/27/2023 1 1 Specialty Diagnoses / Procedures Referred By Contac t Referred To Contact Cardiology Diagnoses Automatic implantable cardioverter-defibrillator in 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, unspecified vessel or lesion type Essential (primary) hypertension Vitamin D deficiency disease H/O mitral valve replacement Procedures EKG 12 Lead Pavel Brown MD [address] [place] [address] Referral ID Status Reason Start Date Expiration Date Visits Re quested Visits Authorized [id number] Open 03/11/2024 03/11/2025 1 1 Specialty Diagnoses / Procedures Referred By Contac t Referred To Contact Radiology Diagnoses Chest pain, cardiac Procedures CT 3D RECONSTRUCTION Pavel Brown MD [address] [place] [address] Referral ID Status Reason Start Date Expiration Date Visits Re quested Visits Authorized [id number] Closed 06/08/2024 06/08/2025 1 1 Specialty Diagnoses / Procedures Referred By Contac t Referred To Contact Radiology Diagnoses Chest pain, unspecified type SOB (shortness of breath) Aneurysm (HCC) Essential (primary) hypertension Procedures CTA ABDOMINAL AORTA W BILAT RUNOFF W WO CONTRAST Pavel Brown MD [address] [place], [place] [id number] Referral ID Status Reason Start Date Expiration Date V isits Requested Visits Authorized [id number] Pending Review 06/07/2024 06/02/2025 1 1 Specialty Diagnoses / Procedures Referred By Contac t Referred To Contact Radiology Diagnoses Chest pain, unspecified type SOB (shortness of breath) Aneurysm (HCC) Procedures US GALLBLADDER RUQ Pavel Brown MD [address] [place], [place] [phone] Referral ID Status Reason Start Date Expiration Date V isits Requested Visits Authorized [id number] Not Required - RTA 06/02/2024 06/02/2025 1 1 Specialty Diagnoses / Procedures Referred By Contac t Referred To Contact Diagnoses Shortness of breath Procedures Echo (TTE) complete (PRN contrast/bubble/strain/3D) MS ECHO TTHRC R-T 2D W/WOM-MODE COMPL SPEC&COLR D MS TTE W OR WO FOL WCON,DOPPLER Pavel Brown MD [address] [place] [address] Referral ID Status Reason Start Date Expiration Date Visits Re quested Visits Authorized [id number] Closed 06/01/2024 06/01/2025 1 1 Specialty Diagnoses / Procedures Referred By Contac t Referred To Contact Diagnoses Bilateral carotid bruits Procedures Vascular duplex carotid bilateral Pavel Brown MD [address] [place] [address] Referral ID Status Reason Start Date Expiration Date V isits Requested Visits Authorized [id number] Not Required - RTA 06/08/2024 06/08/2025 1 1 Specialty Diagnoses / Procedures Referred By Contac t Referred To Contact Cardiology Diagnoses Automatic implantable cardioverter-defibrillator in 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, unspecified vessel or lesion type Essential (primary) hypertension Vitamin D deficiency disease H/O mitral valve replacement Pacemaker Procedures EKG 12 Lead Pavel Brown MD [address] [place] [address] Referral ID Status Reason Start Date Expiration Date Visits Re quested Visits Authorized [id number] Open 07/05/2024 07/05/2025 1 1 History of Present Illness * Amy Chirinos RN - 04/05/2020 11:34 AM EDT Lexiscan administered, pt reports shortness of breath. 11:36 Pt reports headache now, shortness of breath ok 11:38 Pt denies chest pain or shortness of breath, report headache. documented in this encounter Additional Source Comments INFORMATION SOURCE (unrecogn ized section and content) DATE CREATED AUTHOR 12/23/2017 [facility] DATE CREATED AUTHOR AUTHOR'S ORGANIZ ATION 02/22/2021 [facility] DATE CREATED AUTHOR AUTHOR'S ORGANIZ ATION 11/02/2021 [facility] DATE CREATED AUTHOR AUTHOR'S ORGANIZ ATION 06/15/2023 [facility] DATE CREATED AUTHOR AUTHOR'S ORGANIZ ATION 04/07/2024 [facility] DATE CREATED AUTHOR AUTHOR'S ORGANIZ ATION 06/18/2024 [facility] DATE CREATED AUTHOR AUTHOR'S ORGANIZ ATION 07/08/[address] [place] [address] Reason for Visit (unrecogniz ed section and content) Status Reason Specialty Diagnoses / Procedures Referred By Contact Referred To Contact Closed Cardiology / Str ess Lab Diagnoses Abnormal EKG Procedures Stress test, Pavel Benz MD [address] [place] [address] [facility] [address] [place] [address] Specialty Diagnoses / Procedures Referred By Contac t Referred To Contact Cardiology Diagnoses H/O mitral valve replacement Procedures ECHO Complete 2D W Doppler W Color Pavel Brown MD [address] [place] [address] Referral ID Status Reason Start Date Expiration Date Visits Re quested Visits Authorized [id number] Closed 09/17/2021 09/17/2022 1 1 Specialty Diagnoses / Procedures Referred By Contac t Referred To Contact Cardiology Diagnoses H/O mitral valve replacement Z95.2 (ICD-10-CM) - H/O mitral valve replacement Procedures Echo transesophageal (POOL) MS ECHO TRANSESOPHAG R-T 2D W/PRB IMG ACQUISJ I&R [id number] - MS ECHO TRANSESOPHAG R-T 2D W/PRB IMG ACQUISJ I&R Pavel Brown MD [address] [place] [address] Referral ID Status Reason Start Date Expiration Date V isits Requested Visits Authorized [id number] Authorized 10/23/2021 10/23/2022 1 1 Reason Comments Follow-up No concerns today Specialty Diagnoses / Procedures Referred By Contac t Referred To Contact Cardiology Diagnoses Coronary artery disease involving [place] heart without angina pectoris, unspecified vessel or lesion type Essential (primary) hypertension Pacemaker H/O mitral valve replacement Procedures ECHO Complete 2D W Doppler W Color Pavel Brown MD [address] [place] [address] Referral ID Status Reason Start Date Expiration Date Visits Re quested Visits Authorized [id number] Closed 07/08/2022 07/08/2023 1 1 Reason Comments Hypertension Hyperlipidemia Hypothyroidism Specialty Diagnoses / Procedures Referred By Contac t Referred To Contact Radiology Diagnoses Chest pain, unspecified type SOB (shortness of breath) Aneurysm (HCC) Essential (primary) hypertension Procedures CTA ABDOMINAL AORTA W BILAT RUNOFF W WO CONTRAST Pavel Brown MD [address] [place] [address] Referral ID Status Reason Start Date Expiration Date V isits Requested Visits Authorized [id number] Pending Review 06/07/2024 06/02/2025 1 1 Specialty Diagnoses / Procedures Referred By Contac t Referred To Contact Radiology Diagnoses Chest pain, unspecified type SOB (shortness of breath) Aneurysm (HCC) Procedures US GALLBLADDER RUQ Pavel Brown MD [address] [place], [place] [phone] Referral ID Status Reason Start Date Expiration Date V isits Requested Visits Authorized [id number] Not Required - RTA 06/02/2024 06/02/2025 1 1 Specialty Diagnoses / Procedures Referred By Contac t Referred To Contact Diagnoses Shortness of breath Procedures Echo (TTE) complete (PRN contrast/bubble/strain/3D) MS ECHO TTHRC R-T 2D W/WOM-MODE COMPL SPEC&COLR D MS TTE W OR WO FOL WCON,DOPPLER Pavel Brown MD [address] [place] [address] Referral ID Status Reason Start Date Expiration Date Visits Re quested Visits Authorized [id number] Closed 06/01/2024 06/01/2025 1 1 Specialty Diagnoses / Procedures [facility] Referred To Contact Diagnoses Bilateral carotid bruits Procedures Vascular duplex carotid bilateral Pavel Brown MD [address] [place] [address] Referral ID Status Reason Start Date Expiration Date V isits Requested Visits Authorized [id number] Not Required - RTA 06/08/2024 06/08/2025 1 1 Care Teams (unrecognized sec tion and content) Heavy Equipment Sales Associate Relationship Specialty Start Date End Date Jayro De Leon MD [address] [facility] [place] [address] PCP - General 05/11/12 Heavy Equipment Sales Associate Relationship Specialty Start Date End Date Jayro De Leon MD [address] [facility] [place] [address] PCP - General 05/11/12 Heavy Equipment Sales Associate Relationship Specialty Start Date End Date Jayro De Leon MD [address] [facility] [place] [address] PCP - General 05/11/12 Heavy Equipment Sales Associate Relationship Specialty Start Date End Date Jayro De Leon MD [address] [facility] [place] [address] PCP - General 05/11/12 Heavy Equipment Sales Associate Relationship Specialty Start Date End Date Jayro De Leon MD [address] [place] [address] (Fax) PCP - General Family Medicine 01/18/22 Heavy Equipment Sales Associate Relationship Specialty Start Date End Date Jayro De Leon MD [address] [place] [address] (Fax) PCP - General Family Medicine 01/18/22 Heavy Equipment Sales Associate Relationship Specialty Start Date End Date Jayro De Leon MD [address] [place] [address] (Fax) PCP - General Family Medicine 01/18/22 Heavy Equipment Sales Associate Relationship Specialty Start Date End Date Jayro De Leon MD [address] [place] [address] (Fax) PCP - General Family Medicine 01/18/22 Heavy Equipment Sales Associate Relationship Specialty Start Date End Date Jayro De Leon MD [address] [place] [address] (Fax) PCP - General Family Medicine 01/18/22 Heavy Equipment Sales Associate Relationship Specialty Start Date End Date Jayro De Leon MD [address] [place] [address] (Fax) PCP - General Family Medicine 01/18/22 Heavy Equipment Sales Associate Relationship Specialty Start Date End Date Jayro De Leon MD [address] [place] [address] (Fax) PCP - General Family Medicine 01/18/22 Heavy Equipment Sales Associate Relationship Specialty Start Date End Date Jayro De Leon MD [address] [facility] [place] [address] PCP - General 05/11/12 Heavy Equipment Sales Associate Relationship Specialty Start Date End Date Jayro De Leon MD [address] [facility] [place] [address] PCP - General 05/11/12 Heavy Equipment Sales Associate Relationship Specialty Start Date End Date Jayro De Leon MD [address] [place] [address] PCP - General 05/11/12 Heavy Equipment Sales Associate Relationship Specialty Start Date End Date Jayro De Leon MD [address] [place] [address] (Fax) PCP - [employer] 12/28/20 Jayro De Leon MD [address] [place] [address] PCP - General Family Medicine 11/19/22 Heavy Equipment Sales Associate Relationship Specialty Start Date End Date Jayro De Leon MD [address] [place] [address] (Fax) PCP - [employer] 12/28/20 Jayro De Leon MD [address] [place] [phone] (Fax) PCP - General Family Medicine 11/19/22 Heavy Equipment Sales Associate Relationship Specialty Start Date End Date Jayro De Leon MD [address] [place] [phone] (Fax) PCP - [employer] 12/28/20 Jayro De Leon MD [address] [place] [address] (Fax) PCP - General Family Medicine 11/19/22 Heavy Equipment Sales Associate Relationship Specialty Start Date End Date Jayro De Leon MD [address] [place] [address] PCP - General 05/11/12 Heavy Equipment Sales Associate Relationship Specialty Start Date End Date Jayro De Leon MD [address] [place] [address] PCP - General 05/11/12 Heavy Equipment Sales Associate Relationship Specialty Start Date End Date Jayro De Leon MD [address] [place] [address] PCP - General 05/11/12 Heavy Equipment Sales Associate Relationship Specialty Start Date End Date Jayro De Leon MD [address] [address] (Fax) PCP - [employer] 12/28/20 Jayro De Leon MD [address] [place] [phone] (Fax) PCP - General Family Medicine 11/19/22 Heavy Equipment Sales Associate Relationship Specialty Start Date End Date Jayro De Leon MD [address] [place] [address] PCP - General 05/11/12 Heavy Equipment Sales Associate Relationship Specialty Start Date End Date Jayro De Leon MD [address] [place] [address] PCP - General 05/11/12 Heavy Equipment Sales Associate Relationship Specialty Start Date End Date Jayro De Leon MD [address] [place] [address] PCP - General 05/11/12 Heavy Equipment Sales Associate Relationship Specialty Start Date End Date Jayro De Leon MD [address] [place] [address] PCP - General 05/11/12 Scheduled Active and Recently Administ ered Medications (unrecognized section and content) Medication Order 10/30/2021 10/31/2021 11/01/2021 sodium chloride flush 0.9 % injection 5-40 mL 5-40 mL, IntraVENous, EVERY 12 HOURS SCHEDULED (2 times per day), First dose on [facility] 11/01/21 at 0900, Until Discontinued, For Line Patency: Peripheral IV = 5 mL; Midline or Central Line = 10 mL/lumen. If following IV push medication, administer flush at same rate as the IV push. Flush volume is determined by type of infusion therapy being given. For non-viscous solutions use: Peripheral IV = 5 mL Midline or Central Line = 10 mL/lumen For viscous solutions (i.e. blood components, parenteral nutrition, contrast media, or after obtaining blood sample) use: Peripheral IV = 10 mL Midline or Central Line = 20 mL/lumen, Pre-Procedure(Cath) 0900 (Due)2100 (Due) sodium chloride flush 0.9 % injection 5-40 mL 5-40 mL, IntraVENous, EVERY 12 HOURS SCHEDULED (2 times per day), First dose on [facility] 11/01/21 at 0915, Until Discontinued, For Line Patency: Peripheral IV = 5 mL; Midline or Central Line = 10 mL/lumen. If following IV push medication, administer flush at same rate as the IV push. Flush volume is determined by type of infusion therapy being given. For non-viscous solutions use: Peripheral IV = 5 mL Midline or Central Line = 10 mL/lumen For viscous solutions (i.e. blood components, parenteral nutrition, contrast media, or after obtaining blood sample) use: Peripheral IV = 10 mL Midline or Central Line = 20 mL/lumen, Recovery(Cath) 0915 (Due)2100 (Due) PRN Medication Order 10/30/2021 10/31/2021 11/01/2021 0.9 % sodium chloride infusion IntraVENous, at 5-250 mL/hr, PRN, if patient receiving piggyback infusions and maintenance fluids are not ordered OR KVO fluids to protect IV site / prevent frequent line interruptions/ long duration, Starting on [facility] 11/01/21 at 0732, For piggyback infusion, administer at same rate as piggyback for a total of 25 mL. Enter 25 mL into dose field and piggyback rate into rate field of order. If piggyback is infusing at a rate less than 100 mL/hr, enter 25 mL into dose field and 100 mL/hr into rate field of order. For KVO fluids, enter rate of 20 mL/hr or less into rate field of order., Pre-Procedure(Cath) 0750 (New Bag - Prov ider: Kita Maravilla RN)0813 (NoRateChange - Provider: TARUN Bell CRNA)0829 (Paused - Provider: TARUN Bell CRNA - Comment: Switch to gravity)0830 (Restarted - Provider: TARUN Bell CRNA)0831 (Stopped - Provider: TARUN Bell CRNA) 0.9 % sodium chloride infusion IntraVENous, at 5-250 mL/hr, PRN, if patient receiving piggyback infusions and maintenance fluids are not ordered OR KVO fluids to protect IV site / prevent frequent line interruptions/ long duration, Starting on [facility] 11/01/21 at 0858, For piggyback infusion, administer at same rate as piggyback for a total of 25 mL. Enter 25 mL into dose field and piggyback rate into rate field of order. If piggyback is infusing at a rate less than 100 mL/hr, enter 25 mL into dose field and 100 mL/hr into rate field of order. For KVO fluids, enter rate of 20 mL/hr or less into rate field of order., Recovery(Cath) sodium chloride flush 0.9 % injection 5-40 mL 5-40 mL, IntraVENous, PRN, Starting on [facility] 11/01/21 at 0732, Until Discontinued, Line Care, After every IV line use, For Line Patency: Peripheral IV = 5 mL; Midline or Central Line = 10 mL/lumen. If following IV push medication, administer flush at same rate as the IV push. Flush volume is determined by type of infusion therapy being given. For non-viscous solutions use: Peripheral IV = 5 mL Midline or Central Line = 10 mL/lumen For viscous solutions (i.e. blood components, parenteral nutrition, contrast media, or after obtaining blood sample) use: Peripheral IV = 10 mL Midline or Central Line = 20 mL/lumen, Pre-Procedure(Cath) sodium chloride flush 0.9 % injection 5-40 mL 5-40 mL, IntraVENous, PRN, Starting on Krist[facility] 11/01/21 at 0858, Until Discontinued, Line Care, After every IV line use, For Line Patency: Peripheral IV = 5 mL; Midline or Central Line = 10 mL/lumen. If following IV push medication, administer flush at same rate as the IV push. Flush volume is determined by type of infusion therapy being given. For non-viscous solutions use: Peripheral IV = 5 mL Midline or Central Line = 10 mL/lumen For viscous solutions (i.e. blood components, parenteral nutrition, contrast media, or after obtaining blood sample) use: Peripheral IV = 10 mL Midline or Central Line = 20 mL/lumen, Recovery(Cath) FOR RECORDS PERTAINING TO PATIENTS WHO ARE OR HAVE BEEN ENROLLED IN A CHEMICAL DEPENDENCY/SUBSTANCEABUSE PROGRAM, SOME INFORMATION MAY BE OMITTED. This clinical summary was aggregated from multiple sources. Caution should be exercised in using it in the provision of clinical care. This summary normalizes information from multiple sources, and as a consequence, information in this document may materially change the coding, format and clinical context of patient data. In addition, data may be omitted in some cases. CLINICAL DECISIONS SHOULD BE BASED ON THE PRIMARY CLINICAL RECORDS. [facility] [employer] [facility]. provides no warranty or guarantee of the accuracy or completeness of information in this document.
--- NOTE | 2024-07-12 15:59 | ECG_ITS ---
[facility] Test Date: 2024-07-12 Pat Name: ANAHY MEDINA Department: Room: - Gender: Female Consulting Solution Director: : 1945 Requested By: ELVIA DE LEON Order Number: [id number] Reading MD: PAM LOPEZ Measurements Intervals [place] Rate: 80 P: 90 CO: 132 QRS: 120 QRSD: 82 T: 25 QT: 378 QTc: 415 Interpretive Statements 1100 Sinus rhythm T wave inversion, can't exclude anteroseptal ischemia R axis deviation 9150 abnormal ECG Electronically Signed On 07-12-2024 20:43:07 EST by PAM LOPEZ
--- NOTE | 2024-07-12 15:59 | ED.SOB1 ---
HPI - SOB/Dyspnea General Chief Complaint: Shortness of Breath/Dyspnea Stated Complaint: CHEST PAINS SOB Time Seen by Provider: 07/12/24 15:30 Source: patient Mode of arrival: walk-in History of Present Illness HPI Narrative: 78 year old female presents to the ED for SOB. It has been ongoing, worse today. Denies fever, chills, CP, dizziness, weakness. Denies abd pain, back pain, N/V/D. States she needs a mitral valve replacement. She is going to have the procedure at [facility]. She was advised by her cocoa room operator to come to the ED if her sx become worse and be transferred to [place]. She does have history of CHF. Related Data Home Medications ?Medication ?Instructions ?Recorded ?Confirmed calcium citrate 400 mg PO DAILY 05/30/24 07/12/24 docusate sodium 100 mg capsule 100 mg PO DAILY PRN constipation 05/30/24 05/30/24 latanoprost 0.005 % eye drops drp ophthalmic (eye) 05/30/24 levothyroxine 50 mcg tablet 50 mcg PO DAILY 05/30/24 07/12/24 losartan 25 mg tablet 25 mg PO DAILY 05/30/24 07/12/24 meclizine 25 mg tablet 25 mg PO PRN 05/30/24 07/12/24 metoprolol succinate 25 mg 12.5 mg PO DAILY 05/30/24 07/12/24 tablet,extended release 24 hr aspirin 81 mg tablet,delayed 81 mg PO DAILY 07/12/24 07/12/24 release (Adult Aspirin Regimen) Previous Rx's ?Medication ?Instructions ?Recorded dicyclomine 10 mg capsule 10 mg PO QID PRN abdominal pain 05/30/24 #12 caps lactobacillus combination no.4 3 3,000 mmu cells PO DAILY #30 caps 05/30/24 billion cell capsule (Probiotic) Allergies Allergy/AdvReac Type Severity Reaction Status Date / Time No Known Drug Allergies Allergy Verified 07/12/24 15:13 Review of Systems ROS Constitutional Denies: fever or chills Ears, nose, mouth, and throat Denies: throat pain or neck pain Cardiovascular Denies: chest pain, palpitations, edema, swelling of feet/ankles or lightheadedness Respiratory Reports: shortness of breath; Denies: cough Gastrointestinal Denies: abdominal pain, nausea, vomiting or diarrhea Musculoskeletal Denies: back pain or neck pain Neurological Denies: headache, numbness in extremities, weakness in extremities or dizziness PFSH PFSH Social History Little interest or pleasure in doing things: not at all Feeling down, depressed, or hopeless: not at all Exam Constitutional Vital Signs, click to edit/add: Last Vital Signs Temp 97.8 F 07/12/24 15:05 Pulse 82 07/12/24 18:05 Resp 24 H 07/12/24 18:05 BP 115/67 07/12/24 18:05 Pulse Ox 98 07/12/24 18:05 O2 Del Method Room Air 07/12/24 16:59 Common normals: no apparent distress and oriented x3 Eye Common normals: conjunctivae normal and no scleral icterus Neck & C-Spine Common normals: supple Respiratory Common normals: normal respiratory effort and clear to auscultation bilaterally Effort & inspection: able to speak in complete sentences and symmetric chest movement Cardio Common normals: regular rate and regular rhythm GI Common normals: soft to palpation and non-tender Extremity General: no edema Neuro Common normals: oriented x3 and moves all extremities Sensorium/orientation: awake and alert Speech: speech normal Course Vital Signs Vital signs: Vital Signs Temperature 97.8 F 07/12/24 15:05 Pulse Rate 78 07/12/24 15:05 Respiratory Rate 22 H 07/12/24 15:05 Blood Pressure 157/70 H 07/12/24 15:05 Pulse Oximetry 97 07/12/24 15:05 Oxygen Delivery Method Room Air 07/12/24 15:05 Temperature 97.8 F 07/12/24 15:05 Pulse Rate 82 07/12/24 18:05 Respiratory Rate 24 H 07/12/24 18:05 Blood Pressure 115/67 07/12/24 18:05 Pulse Oximetry 98 07/12/24 18:05 Oxygen Delivery Method Room Air 07/12/24 16:59 MDM - SOB/Dyspnea MDM Narrative Medical decision making narrative: BNP was 13,912; it was 4,139 on 05/30/24. Chest x-ray showed no acute findings. The patient did not have peripheral edema. The patient will be seeing Dr. Bryant Guevara at the [facility]; he is a structural mattress specialist. I spoke with Dr. Bolanos who was flight control specialist for Dr. Guevara. He reported the patient had severe mitral valve stenosis on her last echo. Test results and physical exam findings were discussed with him. The patient is on room air with an oxygen saturation of 98%. She appears in no acute distress. He did not feel the patient needed immediate transfer. He did recommend we speak with the cardiology quarterback to get the patient setup with a future date for care. I spoke with Dr. Akbar who was the cardiology quarterback tonight for the [facility]. [facility] will be reaching out to Dr. Guevara. They are going to call the patient tomorrow. She is able to be discharged home tonight. This was discussed with the patient and her family member. She was comfortable being discharged home. Return precautions were discussed. Follow up with pcp and cardiology for further evaluation and treatment. Differential Diagnosis Differential diagnosis: Likely congestive heart failure and other (viral illness, pneumonia, mitral valve disease) Medical Records Attestation: I reviewed the patient's medical records. Lab Data Attestation: I reviewed the patient's lab results. Labs: Lab Results 07/12/24 Range/Units 15:15 WBC 7.9 (4.0-11.0) 10^3/uL RBC 3.78 L (4.20-5.40) 10^6/uL Hgb 12.0 (12.0-16.0) g/dL Hct 38.6 (36.0-48.0) % MCV 102.1 H (81.0-99.0) fL MCH 31.7 (26.7-34.0) pg MCHC 31.1 (29.9-35.2) g/dL RDW 14.5 (11.0-15.0) % Plt Count 283 (150-450) 10^3/uL MPV 9.0 L (9.5-13.5) fL Neut % (Auto) 64.0 (43.0-75.0) % Lymph % (Auto) 24.0 (20.5-60.0) % [place] % (Auto) 10.5 (1.7-12.0) % Eos % (Auto) 0.8 L (0.9-7.0) % Baso % (Auto) 0.4 (0.2-2.0) % Neut # (Auto) 5.1 (1.4-6.5) 10^3/uL Lymph # (Auto) 1.9 (1.2-3.8) 10^3/uL [place] # (Auto) 0.8 (0.3-0.8) 10^3/uL Eos # (Auto) 0.1 (0.0-0.7) 10^3/uL Baso # (Auto) 0.0 (0.0-0.1) 10^3/uL Abs Immat Gran (auto) 0.02 (0.00-0.03) 10^3/uL Imm/Tot Granulo (auto) 0.3 (0.0-0.5) % Sodium 141 (136-145) mmol/L Potassium 5.1 (3.5-5.1) mmol/L Chloride 109 H (98-107) mmol/L Carbon Dioxide 23.4 (21.0-32.0) mmol/L Anion Gap 13.7 BUN 19.0 H (7.0-18.0) mg/dL Creatinine 1.20 H (0.55-1.02) mg/dL Est GFR ( Amer) 52 L (>=60 mL/min/1.73m^2) Est GFR (Non-Af Amer) 43 L (>=60 mL/min/1.73m^2) BUN/Creatinine Ratio 15.8 Glucose 113 H (74-106) mg/dL Calcium 9.0 (8.5-10.1) mg/dL Total Bilirubin 0.4 (0.2-1.0) mg/dL AST 24 (15-37) U/L ALT 15 (14-59) U/L Alkaline Phosphatase 49 (46-116) U/L Troponin I High Sens 26.9 (4.0-51.3) pg/mL NT-Pro-B Natriuret Pep 27258.0 H* (<=1800.0) pg/mL Total Protein 7.0 (6.4-8.2) g/dL Albumin 3.3 L (3.4-5.0) g/dL Globulin 3.7 g/dL Albumin/Globulin Ratio 0.9 Imaging Data Chest x-ray: Attestation: I have reviewed the pertinent imaging results. Radiologist's impression: ITS Impressions Chest X-Ray 07/12/24 16:04 IMPRESSION: No acute heart or lung disease identified. Electronically authenticated by: DEMETRICE SUÁREZ Date: 07/12/2024 17:17 ECG Data Attestation: ?I have reviewed the pertinent ECG results. (EKG was reviewed by the attending physician. It showed sinus rhythm at a rate of 80. No acute ST segment changes. ) Interpretation: Measurements Intervals Holiday Rate: 80 P: 90 RI: 132 QRS: 120 QRSD: 82 T: 25 QT: 378 QTc: 415 Interpretive Statements 1100 Sinus rhythm 5134 Right ventricular hypertrophy with repolarization abnormality 9150 abnormal ECG No previous ECG available for comparison Discharge Plan Discharge Chief Complaint: Shortness of Breath/Dyspnea Clinical Impression: Dyspnea, History of chronic CHF, Hx of mitral valve stenosis Patient Disposition: Home, Self-Care Time of Disposition Decision: 19:53 Condition: Good Mode of Transportation: Private Vehicle Prescriptions / Home Meds: No Action latanoprost 0.005 % drops OPHTHALMIC (EYE) levothyroxine 50 mcg tablet 50 mcg PO DAILY losartan 25 mg tablet 25 mg PO DAILY metoprolol succinate 25 mg tablet extended release 24 hr 12.5 mg PO DAILY docusate sodium 100 mg capsule 100 mg PO DAILY PRN (Reason: constipation) calcium citrate 200 mg (950 mg) tablet 400 mg PO DAILY meclizine 25 mg tablet 25 mg PO PRN Probiotic 3 billion cell capsule 3,000 mmu cells PO DAILY Qty: 30 0RF Rx Instructions: administer with a meal dicyclomine 10 mg capsule 10 mg PO QID PRN (Reason: abdominal pain) Qty: 12 0RF aspirin [Adult Aspirin Regimen] 81 mg tablet,delayed release (DR/EC) 81 mg PO DAILY Print Language: Romanian Instructions: Mitral Stenosis (ED), Dyspnea (ED) Additional Instructions: Return to the ER for worsening symptoms. Dr. Guevara's office should be reaching out to you tomorrow for follow up. Referrals: ELVIA DE LEON [Primary Care Provider] - 1 week LATHA CHA [Physician] - 1 week
--- NOTE | 2024-07-12 16:04 | XR_ITS ---
The [address] [address] Patient Name: ANAHY MEDINA MRN: [id number] date: 1945 Sex: F Assigned Patient Location: ER Current Patient Location: ER Accession/Order Number: [id number] Exam Date: 07/12/2024 15:58 Report Date: 07/12/2024 17:17 At the request of: JORDEN FERNANDES Procedure: XR chest 1V EXAM: XR chest 1V HISTORY: . SOB . COMPARISON: 06/15/2024 TECHNIQUE: Single view of the chest FINDINGS: Heart is slightly enlarged. Pacing device is noted. Vascularity is unremarkable. Lungs are free of focal infiltrates. Median sternotomy sutures are noted. EKG leads overlie the chest. XR/XR chest 1V IMPRESSION: No acute heart or lung disease identified. Electronically authenticated by: DEMETRICE SUÁREZ Date: 07/12/2024 17:17
[2024-07-12 16:11] LABS: Basophils Percent Auto 0.4 % (0.2-2.0); Eosinophils Absolute Auto 0.1 10^3/uL (0.0-0.7); Eosinophils Percent Auto 0.8 % (0.9-7.0); Hematocrit 38.6 % (36.0-48.0); Immature Granulocytes Abs Auto 0.02 10^3/uL (0.00-0.03); Immature Granulocytes Pct Auto 0.3 % (0.0-0.5); Lymphocytes Absolute Auto 1.9 10^3/uL (1.2-3.8); Mean Corpuscular HGB Conc 31.1 g/dL (29.9-35.2); Mean Corpuscular Hemoglobin 31.7 pg (26.7-34.0); Mean Corpuscular Volume 102.1 fL (81.0-99.0); Monocytes Absolute Auto 0.8 10^3/uL (0.3-0.8); Monocytes Percent Auto 10.5 % (1.7-12.0); Neutrophils Absolute Auto 5.1 10^3/uL (1.4-6.5); Platelet Count 283 10^3/uL (150-450); Red Blood Count 3.78 10^6/uL (4.20-5.40); Red Cell Distribution Width 14.5 % (11.0-15.0); White Blood Count 7.9 10^3/uL (4.0-11.0)
[2024-07-12 16:50] LABS: Alanine Aminotransferase 15 U/L (14-59); Albumin Globulin Ratio 0.9; Albumin Level 3.3 g/dL (3.4-5.0); Alkaline Phosphatase 49 U/L (46-116); Anion Gap 13.7; Aspartate Amino Transferase 24 U/L (15-37); BUN Creatinine Ratio 15.8; Bilirubin Total 0.4 mg/dL (0.2-1.0); Carbon Dioxide 23.4 mmol/L (21.0-32.0); Chloride 109 mmol/L (98-107); Estimated GFR (African America 52 (>=60 mL/min/1.73m^2); Estimated GFR (Non-African Ame 43 (>=60 mL/min/1.73m^2); Globulin 3.7 g/dL; Glucose 113 mg/dL (74-106); Potassium 5.1 mmol/L (3.5-5.1); Sodium 141 mmol/L (136-145); Troponin I High Sensitivity 26.9 pg/mL (4.0-51.3)
== END 2024-07-12 20:40 | disposition home or self-care (01) ==
PROVIDERS: Nurse Practitioner Family; Emergency Provider Emergency Medicine; PCP Family Medicine
DX: R06.00 Dyspnea, unspecified (principal); I50.9 Heart failure, unspecified; I05.0 Rheumatic mitral stenosis
CPT/HCPCS: 36415; 71045; 80053; 83880; 84484; 85025; 93005; 99285

== ENCOUNTER 2024-11-30 12:51 | Outpatient (OUT) | payer MEDICARE, SELFPAY ==
--- NOTE | 2024-11-30 13:25 | MM_ITS ---
Patient Name: ANAHY MEDINA MR#: [id number] : 1945 Exam Date: 11/30/2024 Ordering Doctor: DR ELVIA DE LEON . RADIOLOGY REPORT PROCEDURE: MM TOMOSYNTHESIS SCREENING BI COMPARISON: MG MAMM SCREEN 3D HUA CAD, 02/09/2021. MG MAMM SCREEN HUA W CAD, 03/05/2019. MG MAMM SCREEN HUA W CAD, 12/15/2017. MG MAMM HUA DIAG W CAD DIG, 12/21/2012. INDICATIONS: Screening mammogram Calculator Name NCI Breast Cancer Risk Assessment Tool 5 Year Breast Cancer Risk 1.10% Lifetime Breast Cancer Risk 1.70% Personal Breast Cancer No Personal Ovarian Cancer No Treatments None Family Cancers None LOCATION: [facility] BREAST COMPOSITION: The breasts are almost entirely fatty. FINDINGS: RIGHT BREAST: No significant suspicious finding. Benign-appearing calcifications are present. LEFT BREAST: No significant suspicious finding. A pacer generator is noted along the left chest wall. Benign-appearing calcifications are present. DIAGNOSTIC CATEGORY 2--BENIGN FINDING: RECOMMENDATIONS: ROUTINE MAMMOGRAM AND CLINICAL EVALUATION IN 12 MONTHS. PLEASE NOTE: A NORMAL MAMMOGRAM DOES NOT EXCLUDE THE POSSIBILITY OF BREAST CANCER. A CLINICALLY SUSPICIOUS PALPABLE LUMP SHOULD BE BIOPSIED. Dictated by: Ace Aguirre MD on 11/30/2024 at 14:35 Approved by: Ace Aguirre MD on 11/30/2024 at 14:37
== END 2024-11-30 12:52 | disposition home or self-care (01) ==
LOC: MAMMO 12:51
PROVIDERS: PCP Family Medicine; Visit Provider Family Medicine
DX: Z13.820 Encounter for screening for osteoporosis (principal); Z78.0 Asymptomatic menopausal state; Z12.31 Encounter for screening mammogram for malignant neoplasm of breast
CPT/HCPCS: 77063; 77067; 77080